=== PATIENT | male | born 1970 | race Caucasian/White ===

== ENCOUNTER → 2018-06-05 | Outpatient (CLI) | payer OTHER ==
[~2018-06-05] MED LIST: ACET-1256 PO; INSDGI SC; NVLGI/PEN SC; RANI150T85 PO
[2018-06-05 11:34] LABS: BASO % 0.3 %; BASO ABS # 0.02 K/uL (0-0.2); EOS % 2.9 %; EOS ABS # 0.22 K/uL (0-0.5); HEMATOCRIT 48.3 % (42-52); HEMOGLOBIN 17.1 g/dL (14.0-18.0); IG# 0.02 K/uL (0.00-0.02); LYMPH % 45.1 %; LYMPH ABS # 3.37 K/uL (1.2-3.4); MEAN CELL VOLUME 91.1 fL (80-100); MEAN CORPUSCULAR HEMOGLOBIN 32.3 pg (25-34); MEAN CORPUSCULAR HGB CONC 35.4 g/dl (32-36); MEAN PLATELET VOLUME 10.6 fL (7.4-10.4); MONO % 9.2 %; MONO ABS # 0.69 K/uL (0.11-0.59); NEUT % 42.2 %; NEUT ABS # 3.16 K/uL (1.4-6.5); PLATELET COUNT 167 K/uL (130-400); RED CELL DISTRIBUTION WIDTH CV 12.4 % (11.5-14.5); RED CELL DISTRIBUTION WIDTH SD 41.3 fL (36.4-46.3); WHITE BLOOD COUNT 7.48 K/uL (4.8-10.8)
--- NOTE | 2018-06-05 11:34 | DIAGNOSTIC IMAGING REPORT ---
CHEST 2 VIEWS ROUTINE CLINICAL HISTORY: Preoperative evaluation. COMPARISON STUDY: No previous studies for comparison. FINDINGS: Lung volumes are normal. No pneumothorax or pleural effusion is noted. There is no evidence for pulmonary edema or pneumonia. Cardiac size is normal. Mediastinal contours are normal. IMPRESSION: No acute cardiopulmonary findings. Electronically signed by: Killian Chase M.D. 06/05/2018 11:33 AM Dictated Date/Time: 06/05/2018 11:32 AM
[2018-06-05 11:51] LABS: ALBUMIN 3.7 gm/dl (3.4-5.0); ALKALINE PHOSPHATASE 76 U/L (45-117); ALT/SGPT 25 U/L (12-78); AST/SGOT 18 U/L (15-37); BLOOD UREA NITROGEN 17 mg/dl (7-18); CARBON DIOXIDE 28 mmol/L (21-32); CREATININE 0.97 mg/dl (0.60-1.40); GLUCOSE 116 mg/dl (70-99); POTASSIUM 4.1 mmol/L (3.5-5.1); SODIUM 138 mmol/L (136-145); TOTAL PROTEIN 7.4 gm/dl (6.4-8.2)
[2018-06-05 12:24] LABS: HEMOGLOBIN A1C 8.4 % (4.5-5.6)
== END | disposition home or self-care (01) ==
LOC: C.CPL 10:15
PROVIDERS: ATTEND Urology
DX: N28.89 Other specified disorders of kidney and ureter (principal); Z01.812 Encounter for preprocedural laboratory examination; Z01.811 Encounter for preprocedural respiratory examination; Z01.810 Encounter for preprocedural cardiovascular examination

== ENCOUNTER 2018-06-18 06:26 | Inpatient (IN) | payer OTHER ==
[2018-06-02 11:52] VITALS: BMI 29.0
--- NOTE | 2018-06-05 10:55 | PAT Medication Instructions ---
Service Date Jun 05, 2018. Current Home Medication List Acetaminophen (Tylenol), 1,000 MG PO PRN Insulin Aspart (Novolog Flexpen), SC TIDM Insulin Glargine (Lantus), 0 SC AMPM Ranitidine (Zantac), 150 MG PO BID Medication Instructions For Your Scheduled Surgery - Take the following medications the morning of surgery with a sip of water: Acetaminophen (Tylenol), 1,000 MG PO PRN (if needed, may be taken up to four hours before surgery) Ranitidine (Zantac), 150 MG PO BID - Take the following medications as scheduled the night before surgery: Acetaminophen (Tylenol), 1,000 MG PO PRN (if needed) Insulin Aspart (Novolog Flexpen), SC TIDM (if needed) Insulin Glargine (Lantus), 0 SC AMPM Ranitidine (Zantac), 150 MG PO BID - For Insulin Dependent Diabetic patients: Test blood sugar A.M. of surgery. - If BLOOD SUGAR IS GREATER THAN 150, take half of your regular dose of: Insulin Glargine (Lantus) -- TAKE 5 UNITS - If BLOOD SUGAR IS LESS THAN 150, do not take any: Insulin Glargine ( Lantus) If you have any questions please call us at [phone] or [phone] or [phone]
[2018-06-18] VITALS (10 sets, daily range): BP systolic 113–146; BP diastolic 62–85; PULSE 88–110; TEMP 36.8–37.2; O2SAT 86–97; Ht 188 cm; Wt 102.5 kg
[~2018-06-18] VITALS: Ht 188 cm; Wt 102.5 kg
[~2018-06-18 06:26] MED LIST changes: +ACETAMINOPHEN 1000 MG/100 ML IV IV SCH; +CEFAZOLIN 2000MG IV PUSH 15 ML IV SCH; +LACTATED RINGER'S 1000ML 1,000 ML IV SCH
[2018-06-18] MEDS ORDERED: MIDAZOLAM HCL 1 MG/ML 2ML VIAL ONE (07:33)
[2018-06-18] MEDS ORDERED: ONDANSETRON INJ 2 MG/ML 2 ML VIAL ONE (07:33)
[2018-06-18] MEDS ORDERED: LIDOCAINE HCL 2% 2 ML VIAL (20MG/ML) ONE (07:33)
[2018-06-18] MEDS ORDERED: PROPOFOL IV EMULSION 10 MG/ML 20 ML VIAL ONE (07:33)
[2018-06-18] MEDS ORDERED: ROCURONIUM BROMIDE 10 MG/ML 5 ML VIAL ONE ×6 (07:33→09:17)
[2018-06-18] MEDS ORDERED: FENTANYL CITRATE INJ 50 MCG/1 ML 2 ML VIAL ONE (07:33)
[2018-06-18] MEDS ORDERED: BUPIVACAINE 0.5 % 5 MG/1 ML PF 10ML VIAL ONE (07:50)
--- NOTE | 2018-06-18 08:10 | History & Physical Bridge Note ---
H&P Re-Evaluation Bridge Note: I have examined the patient, reviewed the History & Physical and in the interval since the performance of the History & Physical I have noted the following changes of clinical significance: No changes noted
[2018-06-18] MEDS ORDERED: EpHEDrine SULFATE INJ 50 MG/ML AMP IV PRN (08:45)
[2018-06-18] MEDS ORDERED: ONDANSETRON INJ 2 MG/ML 2 ML VIAL IV PRN ×2 (08:45→10:45)
[2018-06-18] MEDS ORDERED: PHENYLEPHRINE 100MCG/ML 5ML SYR IV PRN (08:45)
[2018-06-18] MEDS ORDERED: ATROPINE SULFATE 0.1 MG/ML 5ML SYR IV PRN (08:45)
[2018-06-18] MEDS ORDERED: ACETAMINOPHEN 1000 MG/100 ML IV IV ONE (08:56)
[2018-06-18] MEDS ORDERED: EpHEDrine SULFATE 50MG/5ML SYR ONE (09:31)
[2018-06-18] MEDS ORDERED: GLYCOPYRROLATE INJ 0.2 MG/ML VIAL ONE (09:42)
[2018-06-18] MEDS ORDERED: NEOSTIGMINE METHYLSULFATE 5 MG/5 ML SYR ONE (09:42)
[2018-06-18] MEDS ORDERED: ESMOLOL HCL 10 MG/ML 10 ML VIAL ONE (10:15)
[2018-06-18] MEDS ORDERED: TISSEEL FIBRIN SEALANT 10ML TOP ONE (10:19)
--- NOTE | 2018-06-18 10:43 | [facility] Post Operative Brief Note ---
Immediate Operative Summary Operative Date Jun 18, 2018. Pre-Operative Diagnosis Right renal mass Post-Operative Diagnosis Right renal mass Procedure(s) Performed Laparoscopic Right Hand Assisted Nephrectomy Surgeon Dr. Alexandro Peng MD Winter Sports Manager Surgeon(s) Lorna Siddiqui RN, FRAMING MILL OPERATOR HELPER Estimated Blood Loss 50ml Findings Consistent with Post-Op Diagnosis Specimens A. Right kidney Drains Gonzalez to gravity Anesthesia Type General Complication(s) none Disposition Accompanied Pt To Recover: no Disposition: Recovery Room / PACU
[2018-06-18] MEDS ORDERED: GLUCAGON FOR INJ 1 MG VIAL SQ PRN (10:45)
[2018-06-18] MEDS ORDERED: OXYBUTYNIN CHLORIDE 5 MG TAB PO PRN (10:45)
[2018-06-18] MEDS ORDERED: HYDROmorphone INJ 1 MG/ML SYR IV PRN (10:45)
[2018-06-18] MEDS ORDERED: GLUCOSE 40% GEL 15 GM TUBE PO PRN (10:45)
[2018-06-18] MEDS ORDERED: DEXTROSE 50% 50 ML SYR IV PRN (10:45)
[2018-06-18] MEDS ORDERED: GLUCOSE 10 TABS/TUBE PO PRN (10:45)
[2018-06-18] MEDS ORDERED: ACETAMINOPHEN IV 100 ML IV PRN (10:45)
[2018-06-18] MEDS ORDERED: CARBOHYDRATES FOR HYPOGLYCEMIA PO PRN (10:45)
[2018-06-18] MEDS: HYDROmorphone INJ 2 MG/ML SYR/VIAL IV PRN ×6 (10:55→11:20)
[2018-06-18] MEDS ORDERED: PHARMACY GLYCEMIC MGMT CONSULT PRN (11:00)
[2018-06-18 11:10] LABS: HEMATOCRIT 48.7 % (42-52); HEMOGLOBIN 16.8 g/dL (14.0-18.0); MEAN CELL VOLUME 94.4 fL (80-100); MEAN CORPUSCULAR HEMOGLOBIN 32.6 pg (25-34); MEAN PLATELET VOLUME 9.8 fL (7.4-10.4); PLATELET COUNT 212 K/uL (130-400); RED CELL DISTRIBUTION WIDTH CV 13.3 % (11.5-14.5); RED CELL DISTRIBUTION WIDTH SD 45.5 fL (36.4-46.3); WHITE BLOOD COUNT 19.04 K/uL (4.8-10.8)
[2018-06-18] MEDS ORDERED: HYDROmorphone INJ 1 MG/ML SYR ONE (11:12)
--- NOTE | 2018-06-18 11:15 | [facility] Operative Report ---
Operative Report Operative Date Jun 18, 2018. Pre-Operative Diagnosis Right renal mass Post-Operative Diagnosis Right renal mass Procedure(s) Performed Laparoscopic Right Hand Assisted Radical Nephrectomy Surgeon Dr. Alexandro Peng MD Business Instructor Surgeon(s) Lorna Siddiqui RN, COOK CANDY Estimated Blood Loss 50ml Findings Normal anatomy, right kidney removed intact. Fluids 1400 cc of crystalloid Specimens A. Right kidney Drains Gonzalez to gravity Anesthesia Type General Complication(s) none Disposition no Recovery Room / PACU Indications 47-year-old male found to have a right central renal mass, approximately 4 cm in size suspicious for renal cell carcinoma over the course of previous hospital admission. Please see H&P and prior notes for further details. Seen the size and location of his tumor and partial nephrectomy is not a satisfactory option. He is here today for radical extirpation of his right kidney and a hand-assisted laparoscopic fashion. Intravenous cephalosporins provided for antibody coverage and SCDs used for DVT prophylaxis. Preoperative intravenous Tylenol provided for pain control. Description of Procedure Patient was properly identified and brought into the operative suite after identification of proper consent of the chart. General anesthesia with endotracheal intubation was initiated and patient was prepped and draped in the standard fashion for this procedure. Full timeout procedure was followed. All port sites were anesthetized with local prior to incision. Patient was placed in a gentle right flank up flexed position and a Wasserman incision was made in the right lower quadrant and brought down through the subcutaneous fat to the level of the fascia of the external oblique. This was divided using a Bovie cautery and abdominal cavity was entered using cold Metzenbaum scissors. Incision was enlarged over the surgeon's finger. GelPort was placed and abdomen was insufflated to 15 mmHg. Normal intra-abdominal anatomy was appreciated and two 12 mm ports were placed in the midclavicular line onto the surgeon's hand. Colon was mobilized laterally along the white line of Toldt using Harmonic scalpel. Excellent intra-abdominal anatomy with a paucity of intra-abdominal fat was appreciated. Duodenum was kocherized and IVC was identified. The gonadal vein running through the surgical field was triple clipped and divided. Ureter was identified and used for lateral traction on the kidney. Dissection was carried in a cephalad direction to the renal hilum was identified. Care was taken to keep the perihilar fat and hopefully vivi tissue with the specimen. A single renal artery and vein were circumscribed and taken using separate vascular staple loads. Excellent control of vessels was noted. Lateral and cephalad aspect of the kidney were dissected free using blunt dissection and harmonic scalpel as necessary. Vascular staple loads were used to divide the adrenal gland leaving the majority of it intact within the patient. Clips were used on the ureter and periureteral tissue which was then divided. Kidney was free within the abdomen and able to be easily removed through the hand-assisted port. Attention was turned to the surgical bed were excellent hemostasis was appreciated without residual abnormal tissue. Tisseel tissue sealant was placed over the surgical bed and the vascular stumps for additional hemostasis. Ports were removed and excess carbon dioxide was removed from the abdomen. Flexion was removed from the table. Hand incision was closed in 2 layers using 0 Vicryl suture on the deep musculature of the abdomen and a #1 Vicryl suture on the fascia of the external oblique. 3-0 Vicryl suture was used on the subcutaneous fat followed by 4-0 Monocryl and Dermabond on all skin incisions. Anesthesia was reversed the patient was transferred to the recovery room in stable condition. Business Instructor was present throughout the case to aid in running the camera, passage of instruments, retraction of tissues and general patient safety. Follow-up CARE: Patient will be admitted to the floor for standard postoperative management. I attest to the content of the Intraoperative Record and any orders documented therein. Any exceptions are noted below.
[2018-06-18 11:18] LABS: MEAN CORPUSCULAR HGB CONC 34.5 g/dl (32-36)
[2018-06-18 11:28] LABS: CALCIUM 8.4 mg/dl (8.5-10.1); CREATININE 1.33 mg/dl (0.60-1.40); POTASSIUM 4.1 mmol/L (3.5-5.1)
--- NOTE | 2018-06-18 13:02 | Anesthesiology Progress Note ---
Anesthesia Post Op Note Date & Time Jun 18, 2018 at 13:02 Vital Signs Pain Intensity: 0.0 Vital Signs Past 12 Hours Date Time Temp Pulse Resp B/P (MAP) Pulse Ox O2 Delivery O2 Flow Rate FiO2 06/18/18 12:32 106 18 141/78 (99) 96 Nasal Cannula 2.0 06/18/18 12:05 103 18 136/79 (98) 97 Nasal Cannula 2.0 06/18/18 11:50 37.0 99 20 134/77 (96) 96 Nasal Cannula 2.0 06/18/18 11:50 96 Nasal Cannula 2.0 06/18/18 11:50 Nasal Cannula 2.0 06/18/18 11:40 38.0 100 16 145/80 97 Oxymask 3 06/18/18 11:30 99 16 141/82 98 Oxymask 3 06/18/18 11:20 99 16 151/86 97 Room Air 06/18/18 11:10 99 16 165/92 100 Oxymask 3 06/18/18 11:00 102 16 169/99 100 Oxymask 5 06/18/18 10:50 36.2 102 16 171/97 100 Oxymask 5 06/18/18 07:06 36.8 88 20 113/85 96 Room Air Notes Mental Status: alert / awake / arousable, participated in evaluation Pt Amnestic to Procedure: Yes Nausea / Vomiting: adequately controlled Pain: adequately controlled Airway Patency, RR, SpO2: stable & adequate BP & HR: stable & adequate Hydration State: stable & adequate Anesthetic Complications: no major complications apparent
[2018-06-18] MEDS ORDERED: INSULIN ASPART 100 UNITS/ML 3 ML PEN SC STA (13:09)
[2018-06-18] MEDS ORDERED: INSULIN GLARGINE SOLOSTAR 100 UNITS/ML 3 ML PEN SC ONE ×2 (13:15→21:00)
[2018-06-18] MEDS: LACTATED RINGER'S 1000ML 1,000 ML IV SCH ×2 (13:29→19:44)
--- NOTE | 2018-06-18 15:32 | Pharmacy Progress Note ---
Glycemic Control Intl Consult Date of Service Jun 18, 2018. Scope Glycemic Pharmacist consulted by Dr Siddiqui on 06/18/18 for glycemic control and to write orders per [facility] inpatient glycemic control protocol Objective Weight (Kilograms): 102.500 Accuchecks BSG (last 24hrs): Test 06/18/18 07:03 06/18/18 10:58 06/18/18 11:15 06/18/18 12:05 Bedside Glucose 92 mg/dl (70-99) 171 mg/dl (70-99) 177 mg/dl (70-99) Random Glucose 171 mg/dl (70-99) Laboratory Data (last 24hrs) Test 06/18/18 10:58 Anion Gap 9.0 mmol/L BUN/Creatinine Ratio 10.1 Blood Urea Nitrogen 13 mg/dl Creatinine 1.33 mg/dl Potassium Level 4.1 mmol/L Sodium Level 137 mmol/L White Blood Count 19.04 K/uL Recent Pertinent Medications Outpatient Anti-diabetic Regimen: * Lantus 0-12 units SC BID (based on BSG) * Novolog 0-8 units SC TIDM (based on BSG) * A1c = 8.4% 06/05/18 * Of note, diabetes is a new diagnosis as of May 2018 and thus this A1c is not reflective of adequacy of above listed outpatient regimen Risk Factors for Insulin Resistance: * Recent Surgery: POD 0 s/p nephrectomy * Diet: clear liquid Assessment & Plan ASSESSMENT: * 47 yo M admitted for nephrectomy. * Recent diagnosis of diabetes as of May 2018. Basal and bolus insulin started as outpatient already. * No basal insulin administered since 8/1 AM per med rec * Will initiate Lantus - 1st dose STAT at 1/2 daily weight-based moderate stress estimate. Additional Lantus tonight for any BSG > 160 mg/dL * Will initiate weight-based moderate stress estimate Novolog * Will add one overnight check as adequate BSG control is especially important post-op PLAN FOR INPATIENT GLYCEMIC CONTROL: * Basal insulin with LANTUS 17 units SQ x1 (already administered). Additional 10 units @ 2100 if BSG > 160 mg/dL * Correctional Insulin with NOVOLOG per scale ACHS or Q6hrs while NPO * Goal Range: Low 120 mg/dL - High 150 mg/dL * Correction Factor: 25 mg/dL/unit * Nutritional / Prandial insulin per carb ratio of 1 unit per 8 grams CHO consumed * Please note that the plan above was derived based on current level of insulin resistance and hospital stress. These recommendations are appropriate for inpatient admission only. Plan of care upon discharge will need to be reassessed to avoid potential outpatient hypo/hyperglycemia. Thank you.
[2018-06-18] MEDS: CEFAZOLIN IV 2,000 MG in SYRINGE 0 ML IV SCH ×2 (15:37→23:24)
[2018-06-18] MEDS: OXYCODONE/ACETAMINOPHEN 7.5-325 TAB PO PRN ×2 (15:37→19:45)
--- NOTE | 2018-06-18 15:45 | Progress Note ---
Progress Note Date of Service Jun 18, 2018. Progress Note PM rounds 47 yo male POD# 0 s/p R HALN. in room. Patient groggy but conversant, notes R flank and incisional pain with movement, expected. Postop labs reviewed , noted below, appropriate. NAD S1 S2 Good respiratory excursion Soft, appropriate incisional tenderness, c/d/i with dermabond, ND A/P 47 yo male s/p R HALN. OOBTC encouraged today. TOV tomorrow, advance diet and activity. Expect 1-2 day hospital stay. Last 24 Hours Test 06/18/18 07:03 06/18/18 10:58 06/18/18 11:15 06/18/18 12:05 Bedside Glucose 92 mg/dl 171 mg/dl 177 mg/dl White Blood Count 19.04 K/uL Red Blood Count 5.16 M/uL Hemoglobin 16.8 g/dL Hematocrit 48.7 % Mean Corpuscular Volume 94.4 fL Mean Corpuscular Hemoglobin 32.6 pg Mean Corpuscular Hemoglobin Concent 34.5 g/dl RDW Standard Deviation 45.5 fL RDW Coefficient of Variation 13.3 % Platelet Count 212 K/uL Mean Platelet Volume 9.8 fL Sodium Level 137 mmol/L Potassium Level 4.1 mmol/L Chloride Level 102 mmol/L Carbon Dioxide Level 26 mmol/L Anion Gap 9.0 mmol/L Blood Urea Nitrogen 13 mg/dl Creatinine 1.33 mg/dl Est Creatinine Clear Calc Drug Dose 87.7 ml/min Estimated GFR () 73.3 Estimated GFR (Non- 63.2 BUN/Creatinine Ratio 10.1 Random Glucose 171 mg/dl Calcium Level 8.4 mg/dl
[2018-06-18] MEDS ORDERED: INSULIN ASPART 100 UNITS/ML 3 ML PEN SC SCH (17:15)
[2018-06-18] MEDS: INSULIN ASPART 100 UNITS/ML 3 ML PEN SC SCH ×2 (18:13→20:50)
[2018-06-18] MEDS: RANITIDINE HCL 150 MG TAB PO SCH (20:51)
[2018-06-18] MEDS: DOCUSATE SODIUM 100 MG CAP PO SCH (20:51)
[2018-06-19] MEDS ORDERED: INSULIN ASPART 100 UNITS/ML 3 ML PEN SC ONE (02:00)
[2018-06-19 03:15] VITALS: BP 150/76; PULSE 99; TEMP 37.4; O2SAT 97
[2018-06-19] MEDS: LACTATED RINGER'S 1000ML 1,000 ML IV SCH ×2 (04:01→12:03)
[2018-06-19 06:56] VITALS: BP 137/76; PULSE 99; TEMP 37.3; O2SAT 91
[2018-06-19 06:57] LABS: BASO % 0.1 %; BASO ABS # 0.01 K/uL (0-0.2); EOS % 0.1 %; EOS ABS # 0.01 K/uL (0-0.5); HEMATOCRIT 45.3 % (42-52); HEMOGLOBIN 15.8 g/dL (14.0-18.0); IG# 0.03 K/uL (0.00-0.02); LYMPH % 16.3 %; LYMPH ABS # 1.62 K/uL (1.2-3.4); MEAN CORPUSCULAR HEMOGLOBIN 32.4 pg (25-34); MEAN CORPUSCULAR HGB CONC 34.9 g/dl (32-36); MEAN PLATELET VOLUME 9.9 fL (7.4-10.4); MONO % 8.9 %; MONO ABS # 0.89 K/uL (0.11-0.59); NEUT % 74.3 %; NEUT ABS # 7.39 K/uL (1.4-6.5); PLATELET COUNT 169 K/uL (130-400); RED CELL DISTRIBUTION WIDTH CV 13.1 % (11.5-14.5); RED CELL DISTRIBUTION WIDTH SD 44.6 fL (36.4-46.3); WHITE BLOOD COUNT 9.95 K/uL (4.8-10.8)
[2018-06-19 07:28] LABS: CALCIUM 8.1 mg/dl (8.5-10.1); CREATININE 1.46 mg/dl (0.60-1.40)
--- NOTE | 2018-06-19 08:24 | Urology Progress Note ---
Progress Note Date of Service Jun 19, 2018. Subjective Pt evaluation today including: conversation w/ patient, chart review, lab review Pain: incisional pain Voiding: rivera catheter in place (patent, draining clear, yellow urine ) 47 yo male s/p right HALN. Pt c/o incisional pain this morning. Denies n/v, but states he has not appetite. Tolerating clears. Denies flatus or BM. He has been OOB to chair, but has not gotten up to walk around because of rivera per pt. Constitutional: No fever, No chills Respiratory: No shortness of breath Cardiovascular: No chest pain Abdomen: + pain (incisional ), No nausea, No vomiting Male : No hematuria Heme: No abnormal bleeding/bruising Objective Vital Signs Date Time Temp Pulse Resp B/P (MAP) Pulse Ox O2 Delivery O2 Flow Rate FiO2 06/19/18 06:56 37.3 99 16 137/76 (96) 91 Room Air 06/19/18 03:15 37.4 99 18 150/76 (100) 97 Room Air 06/18/18 23:25 Room Air 06/18/18 23:12 36.8 92 18 134/71 (92) 93 Room Air 06/18/18 19:20 36.9 99 18 146/85 (105) 97 Nasal Cannula 3.0 06/18/18 15:30 Nasal Cannula 2.0 06/18/18 15:23 37.2 106 16 145/62 (89) 96 Nasal Cannula 2.0 06/18/18 14:07 97 95 Nasal Cannula 2.0 06/18/18 14:05 110 16 119/68 (85) 86 Room Air 06/18/18 13:07 108 18 127/77 (94) 91 Room Air 06/18/18 12:32 106 18 141/78 (99) 96 Nasal Cannula 2.0 06/18/18 12:05 103 18 136/79 (98) 97 Nasal Cannula 2.0 06/18/18 11:50 37.0 99 20 134/77 (96) 96 Nasal Cannula 2.0 06/18/18 11:50 96 Nasal Cannula 2.0 06/18/18 11:50 Nasal Cannula 2.0 06/18/18 11:40 38.0 100 16 145/80 97 Oxymask 3 06/18/18 11:30 99 16 141/82 98 Oxymask 3 06/18/18 11:20 99 16 151/86 97 Room Air 06/18/18 11:10 99 16 165/92 100 Oxymask 3 06/18/18 11:00 102 16 169/99 100 Oxymask 5 06/18/18 10:50 36.2 102 16 171/97 100 Oxymask 5 Physical Exam General Appearance: no apparent distress Eyes: normal inspection ENT: hearing grossly normal Neck: no JVD Respiratory/Chest: no respiratory distress, no accessory muscle use Cardiovascular: no JVD Abdomen: soft, + tenderness (diffuse ), + pertinent finding (abdominal incisions c/d/i) Extremities: normal inspection Neurologic/Psychiatric: alert, normal mood/affect, oriented x 3 Skin: normal color Laboratory Results Last 24 Hours Test 06/18/18 10:58 06/18/18 11:15 06/18/18 12:05 06/18/18 17:27 White Blood Count 19.04 K/uL Red Blood Count 5.16 M/uL Hemoglobin 16.8 g/dL Hematocrit 48.7 % Mean Corpuscular Volume 94.4 fL Mean Corpuscular Hemoglobin 32.6 pg Mean Corpuscular Hemoglobin Concent 34.5 g/dl RDW Standard Deviation 45.5 fL RDW Coefficient of Variation 13.3 % Platelet Count 212 K/uL Mean Platelet Volume 9.8 fL Sodium Level 137 mmol/L Potassium Level 4.1 mmol/L Chloride Level 102 mmol/L Carbon Dioxide Level 26 mmol/L Anion Gap 9.0 mmol/L Blood Urea Nitrogen 13 mg/dl Creatinine 1.33 mg/dl Est Creatinine Clear Calc Drug Dose 87.7 ml/min Estimated GFR () 73.3 Estimated GFR (Non- 63.2 BUN/Creatinine Ratio 10.1 Random Glucose 171 mg/dl Calcium Level 8.4 mg/dl Bedside Glucose 171 mg/dl 177 mg/dl 171 mg/dl Test 06/18/18 20:38 06/19/18 01:56 06/19/18 06:36 Bedside Glucose 148 mg/dl 116 mg/dl White Blood Count 9.95 K/uL Red Blood Count 4.87 M/uL Hemoglobin 15.8 g/dL Hematocrit 45.3 % Mean Corpuscular Volume 93.0 fL Mean Corpuscular Hemoglobin 32.4 pg Mean Corpuscular Hemoglobin Concent 34.9 g/dl Platelet Count 169 K/uL Mean Platelet Volume 9.9 fL Neutrophils (%) (Auto) 74.3 % Lymphocytes (%) (Auto) 16.3 % Monocytes (%) (Auto) 8.9 % Eosinophils (%) (Auto) 0.1 % Basophils (%) (Auto) 0.1 % Neutrophils # (Auto) 7.39 K/uL Lymphocytes # (Auto) 1.62 K/uL Monocytes # (Auto) 0.89 K/uL Eosinophils # (Auto) 0.01 K/uL Basophils # (Auto) 0.01 K/uL RDW Standard Deviation 44.6 fL RDW Coefficient of Variation 13.1 % Immature Granulocyte % (Auto) 0.3 % Immature Granulocyte # (Auto) 0.03 K/uL Sodium Level 134 mmol/L Potassium Level 4.0 mmol/L Chloride Level 102 mmol/L Carbon Dioxide Level 27 mmol/L Anion Gap 5.0 mmol/L Blood Urea Nitrogen 11 mg/dl Creatinine 1.46 mg/dl Est Creatinine Clear Calc Drug Dose 79.9 ml/min Estimated GFR () 65.4 Estimated GFR (Non- 56.5 BUN/Creatinine Ratio 7.7 Random Glucose 107 mg/dl Calcium Level 8.1 mg/dl Assessment and Plan POD #1 s/p right HALN Pt clinically stable. Labs stable. I&Os acceptable. Will advance to mechanical soft diet as tolerated. Encourage use of IS. Encourage ambulation to hallway. D/c rivera catheter. Trial of void this morning. Hep lock IVF after lunch if tolerating PO. Likely d/c home tomorrow. Discharge planning: home
[2018-06-19] MEDS ORDERED: CLC100 PO (08:28)
[2018-06-19] MEDS ORDERED: OXYC7.5T62 PO (08:28)
[2018-06-19] MEDS: CEFAZOLIN IV 2,000 MG in SYRINGE 0 ML IV SCH (08:30)
--- NOTE | 2018-06-19 08:34 | Discharge Instructions ---
Discharge Instructions Date of Service Jun 19, 2018. Admission Reason for Admission: Right Renal Mass Discharge Discharge Diagnosis / Problem: Right renal mass Discharge Goals Goal(s): Decrease discomfort, Improve function, Increase independence, Improve disease control, Improve nutritional status, Therapeutic intervention Activity Recommendations Activity Limitations: as noted below Shower/Bathe: tomorrow 1. Do not lift >15lbs x 6 weeks. 2. No heavy exercise x 6 weeks. You may engage in light activity such as walking and stairs as tolerated. 3. Do not drive x [address] while taking narcotics. 4. Follow-up as scheduled. Please call our office at [phone] if you need to reschedule for any reason. . . Current Hospital Diet Patient's current hospital diet: Diabetes Type 2 Diet Discharge Diet Recommended Diet: Diabetes Type 2 Diet Procedures Procedures Performed: Laparoscopic Right Hand Assisted Radical Nephrectomy Pending Studies Studies pending at discharge: yes List of pending studies: right kidney Laboratory Results Hemoglobin A1c Test 06/05/18 11:08 Range/Units Estimated Average Glucose 194 mg/dl Hemoglobin A1c 8.4 H 4.5-5.6 % Medical Emergencies . Who to Call and When: Medical Emergencies: If at any time you feel your situation is an emergency, please call 911 immediately. . Non-Emergent Contact Non-Emergency issues call your: Urologist Call Non-Emergent contact if: temperature is above 101.5, your pain is not controlled, your pain is worsening, your pain is unusual for you, your pain is concerning you, wound has increased drainage, wound has increased redness, wound has increased pain, you have any medication questions . . "Provider Documentation" section prepared by Lorna Siddiqui. . [place] Drug Monitoring Program Search Results: patient reviewed within database, no issues identified
[2018-06-19] MEDS: OXYCODONE/ACETAMINOPHEN 7.5-325 TAB PO PRN ×4 (08:43→23:46)
[2018-06-19] MEDS: RANITIDINE HCL 150 MG TAB PO SCH ×2 (08:45→21:12)
[2018-06-19] MEDS: DOCUSATE SODIUM 100 MG CAP PO SCH ×2 (08:45→21:12)
[2018-06-19] MEDS: INSULIN ASPART 100 UNITS/ML 3 ML PEN SC SCH ×4 (09:00→21:00)
[2018-06-19] MEDS: INSULIN GLARGINE SOLOSTAR 100 UNITS/ML 3 ML PEN SC SCH ×2 (09:02→21:16)
[2018-06-19] MEDS: HEPARIN SOD 5000 UNIT/0.5 ML CARP SQ SCH ×2 (11:29→21:15)
--- NOTE | 2018-06-19 11:55 | Pharmacy Progress Note ---
Glycemic Control Progress Note Date of Service Jun 19, 2018. Scope Glycemic Pharmacist consulted for glycemic control to write orders per [facility] inpatient glycemic control protocol. Objective Accuchecks BSG (last 24hrs): Test 06/18/18 12:05 06/18/18 17:27 06/18/18 20:38 06/19/18 01:56 Bedside Glucose 177 mg/dl (70-99) 171 mg/dl (70-99) 148 mg/dl (70-99) 116 mg/dl (70-99) Test 06/19/18 06:36 06/19/18 08:08 06/19/18 11:32 Random Glucose 107 mg/dl (70-99) Bedside Glucose 103 mg/dl (70-99) 102 mg/dl (70-99) Recent Pertinent Medications Outpatient Anti-diabetic Regimen: * Lantus 0-12 units SC BID (based on BSG) * Novolog 0-8 units SC TIDM (based on BSG) * A1c = 8.4% 06/05/18 * Of note, diabetes is a new diagnosis as of May 2018 and thus this A1c is not reflective of adequacy of above listed outpatient regimen The patient is currently receiving: * Basal insulin with LANTUS 17 units SQ x1 06/18 afternoon * Correctional Insulin with NOVOLOG per scale ACHS or Q6hrs while NPO * Goal Range: Low 120 mg/dL - High 150 mg/dL * Correction Factor: 25 mg/dL/unit * Nutritional / Prandial insulin per carb ratio of 1 unit per 8 grams CHO consumed Risk Factors for Insulin Resistance: * Recent Surgery: POD 1 s/p nephrectomy * Diet: T2DM, mechanical soft Assessment & Plan ASSESSMENT: 06/17/18 * 47 yo M admitted for nephrectomy. * Recent diagnosis of diabetes as of May 2018. Basal and bolus insulin started as outpatient already. * No basal insulin administered since 8/ AM per med rec * Will initiate Lantus - 1st dose STAT at 1/2 daily weight-based moderate stress estimate. Additional Lantus tonight for any BSG > 160 mg/dL * Will initiate weight-based moderate stress estimate Novolog * Will add one overnight check as adequate BSG control is especially important post-op 06/18/18 * BSG's ranging 102-177 over the last 24 hours, and all BSG's today 102-116 mg/ dL * Patient denied nausea, but also notes poor appetite (per provider progress note) * Will resume Lantus (similar to home dose) * OK to decrease Novolog goal range * No ongoing overnight checks required * Anticipate likely discharge tomorrow PLAN FOR INPATIENT GLYCEMIC CONTROL: * Basal insulin with LANTUS BID based on BSG * Hold for BSG less than 100 mg/dL * 6 units for BSG 100-150 mg/dL * 10 units for BSG 151-200 mg/dL * 12 units for BSG greater than 200 mg/dL * Correctional Insulin with NOVOLOG per scale ACHS or Q6hrs while NPO * Goal Range: Low 110 mg/dL - High 140 mg/dL * Correction Factor: 25 mg/dL/unit * Nutritional / Prandial insulin per carb ratio of 1 unit per 8 grams CHO consumed * Please note that the plan above was derived based on current level of insulin resistance and hospital stress. These recommendations are appropriate for inpatient admission only. Plan of care upon discharge will need to be reassessed to avoid potential outpatient hypo/hyperglycemia. Thank you.
--- NOTE | 2018-06-19 13:24 | Anesthesiology Progress Note ---
Anesthesia Post Op Note Date & Time Jun 19, 2018 at 13:24 Vital Signs Pain Intensity: 7.0 Vital Signs Past 12 Hours Date Time Temp Pulse Resp B/P (MAP) Pulse Ox O2 Delivery O2 Flow Rate FiO2 06/19/18 10:43 Room Air 06/19/18 06:56 37.3 99 16 137/76 (96) 91 Room Air 06/19/18 03:15 37.4 99 18 150/76 (100) 97 Room Air Notes Mental Status: alert / awake / arousable, participated in evaluation Pt Amnestic to Procedure: Yes Nausea / Vomiting: adequately controlled Pain: adequately controlled Airway Patency, RR, SpO2: stable & adequate BP & HR: stable & adequate Hydration State: stable & adequate Anesthetic Complications: no major complications apparent
[2018-06-19 15:15] VITALS: BP 136/81; PULSE 91; TEMP 37.3; O2SAT 93
[2018-06-19 19:30] VITALS: O2SAT 93
[2018-06-19] MEDS ORDERED: NURSING VERBAL MED ORDER ONE (20:00)
[2018-06-19 23:28] VITALS: BP 148/86; PULSE 95; TEMP 37.2; O2SAT 95
[2018-06-20 06:49] LABS: BASO % 0.1 %; BASO ABS # 0.01 K/uL (0-0.2); EOS % 1.3 %; EOS ABS # 0.12 K/uL (0-0.5); HEMATOCRIT 45.5 % (42-52); HEMOGLOBIN 15.8 g/dL (14.0-18.0); IG# 0.02 K/uL (0.00-0.02); LYMPH % 17.4 %; LYMPH ABS # 1.65 K/uL (1.2-3.4); MEAN CELL VOLUME 93.6 fL (80-100); MEAN CORPUSCULAR HEMOGLOBIN 32.5 pg (25-34); MEAN CORPUSCULAR HGB CONC 34.7 g/dl (32-36); MEAN PLATELET VOLUME 10.1 fL (7.4-10.4); MONO % 8.8 %; MONO ABS # 0.83 K/uL (0.11-0.59); NEUT % 72.2 %; NEUT ABS # 6.83 K/uL (1.4-6.5); PLATELET COUNT 177 K/uL (130-400); RED CELL DISTRIBUTION WIDTH CV 12.9 % (11.5-14.5); RED CELL DISTRIBUTION WIDTH SD 44.5 fL (36.4-46.3); WHITE BLOOD COUNT 9.46 K/uL (4.8-10.8)
[2018-06-20 07:18] VITALS: BP 142/85; PULSE 105; TEMP 37.1; O2SAT 93
[2018-06-20 07:18] LABS: CALCIUM 9.1 mg/dl (8.5-10.1); CREATININE 1.48 mg/dl (0.60-1.40); POTASSIUM 3.9 mmol/L (3.5-5.1)
[2018-06-20] MEDS: OXYCODONE/ACETAMINOPHEN 7.5-325 TAB PO PRN (07:45)
[2018-06-20] MEDS: INSULIN ASPART 100 UNITS/ML 3 ML PEN SC SCH (08:00)
[2018-06-20] MEDS: DOCUSATE SODIUM 100 MG CAP PO SCH (09:11)
[2018-06-20] MEDS: RANITIDINE HCL 150 MG TAB PO SCH (09:11)
[2018-06-20] MEDS: INSULIN GLARGINE SOLOSTAR 100 UNITS/ML 3 ML PEN SC SCH (09:17)
[2018-06-20] MEDS: HEPARIN SOD 5000 UNIT/0.5 ML CARP SQ SCH (10:57)
--- NOTE | 2018-06-20 11:43 | Urology Progress Note ---
Progress Note Date of Service Jun 20, 2018. Subjective Pt evaluation today including: conversation w/ patient, physical exam, chart review, review of studies Pain: better PO Intake: pt passing flatus Voiding: no voiding problems Objective Vital Signs Date Time Temp Pulse Resp B/P (MAP) Pulse Ox O2 Delivery O2 Flow Rate FiO2 06/20/18 07:51 Room Air 06/20/18 07:18 37.1 105 16 142/85 (104) 93 Room Air 06/19/18 23:28 37.2 95 16 148/86 (106) 95 Room Air 06/19/18 23:15 Room Air 06/19/18 19:30 93 Room Air 06/19/18 15:30 Room Air 06/19/18 15:15 37.3 91 18 136/81 (99) 93 Physical Exam Abdomen: soft Extremities: no calf tenderness Notes: minimal erythema lower incision marked Laboratory Results Last 24 Hours Test 06/19/18 16:58 06/19/18 20:41 06/20/18 06:31 06/20/18 07:57 Bedside Glucose 95 mg/dl 111 mg/dl 103 mg/dl White Blood Count 9.46 K/uL Red Blood Count 4.86 M/uL Hemoglobin 15.8 g/dL Hematocrit 45.5 % Mean Corpuscular Volume 93.6 fL Mean Corpuscular Hemoglobin 32.5 pg Mean Corpuscular Hemoglobin Concent 34.7 g/dl Platelet Count 177 K/uL Mean Platelet Volume 10.1 fL Neutrophils (%) (Auto) 72.2 % Lymphocytes (%) (Auto) 17.4 % Monocytes (%) (Auto) 8.8 % Eosinophils (%) (Auto) 1.3 % Basophils (%) (Auto) 0.1 % Neutrophils # (Auto) 6.83 K/uL Lymphocytes # (Auto) 1.65 K/uL Monocytes # (Auto) 0.83 K/uL Eosinophils # (Auto) 0.12 K/uL Basophils # (Auto) 0.01 K/uL RDW Standard Deviation 44.5 fL RDW Coefficient of Variation 12.9 % Immature Granulocyte % (Auto) 0.2 % Immature Granulocyte # (Auto) 0.02 K/uL Sodium Level 134 mmol/L Potassium Level 3.9 mmol/L Chloride Level 99 mmol/L Carbon Dioxide Level 27 mmol/L Anion Gap 8.0 mmol/L Blood Urea Nitrogen 12 mg/dl Creatinine 1.48 mg/dl Est Creatinine Clear Calc Drug Dose 78.8 ml/min Estimated GFR () 64.4 Estimated GFR (Non- 55.5 BUN/Creatinine Ratio 8.3 Random Glucose 83 mg/dl Calcium Level 9.1 mg/dl
[2018-06-20 12:17] VITALS: BP 142/85; PULSE 105; TEMP 37.1; O2SAT 93
--- NOTE | 2018-07-01 10:49 | Discharge Summary ---
Discharge Summary Date of Service Jul 01, 2018. Admission Date/Reason Jun 18, 2018 at 10:48 Right Renal Mass. Discharge Date/Disposition Jun 20, 2018 Home Diagnosis Principal Diagnosis: Right renal cell carcinoma Procedure(s) Performed Right radical hand-assisted laparoscopic nephrectomy Medication Reconciliation New Medications: Docusate Sodium (Docusate Sodium) 100 Mg Cap 100 MG PO BID PRN for Constipation, #60 CAP 0 Refills Oxycodone/Acetaminophen 7.5MG/325MG (Endocet 7.5MG/325MG) 1 Tab Tab 1 TAB PO Q6 PRN for severe pain (pain scale 7-10), #30 TAB 0 Refills Continued Medications: Acetaminophen (Tylenol) 500 Mg Tab 1000 MG PO PRN, TAB Insulin Aspart (Novolog Flexpen) 100 Units/Ml Inj SC TIDM SLIDING SCALE Insulin Glargine (Lantus) 100 Unit/Ml Inj 0 SC AMPM, VIAL SLIDING SCALE Ranitidine (Zantac) 150 Mg Tab 150 MG PO BID, TAB Admission Physical Exam As per Admitting History & Physical. Hospital Course Pleasant 47-year-old male found to have a suspicious right renal mass not amenable to partial nephrectomy. He is here today for radical surgical extirpation. Please see H&P for further details. Patient underwent right radical nephrectomy with hand-assisted laparoscopy on 18 June as planned. Please see operative report for further details. Over the following days diet and activity were advanced until by postoperative day #2 patient was considered stable for discharge home on oral pain medication, tolerating a regular diet and ambulatory in the hallways. Please see progress notes for further details. Discharge Instructions Please refer to the electronic Patient Visit Report (Discharge Instructions) for additional information.
== END 2018-06-20 13:40 | disposition home or self-care (01) | DRG 658 ==
LOC: C.ACU 06:26 → C.MSN 10:48 → ENRESERV 11:22
PROVIDERS: ADMIT Urology; ATTEND Urology
PROC: 0TT00ZZ Resection of Right Kidney, Open Approach (ICD-10-PCS; principal; 2018-06-18 08:15)
DX: C64.1 Malignant neoplasm of right kidney, except renal pelvis (principal); E11.9 Type 2 diabetes mellitus without complications; Z87.891 Personal history of nicotine dependence; Z80.3 Family history of malignant neoplasm of breast; Z83.3 Family history of diabetes mellitus; Z79.4 Long term (current) use of insulin

== ENCOUNTER 2020-05-03 09:39 | Observation (INO) ==
--- NOTE | 2020-05-02 18:08 | History and Physical Report ---
DATE OF ADMISSION: 05/03/2020 CHIEF COMPLAINT: Left knee injury. HISTORY OF PRESENT ILLNESS: This is a 49-year-old male patient of Dr. Hunt'violeta complaining of a knee injury from 04/27/2020. The patient apparently fell into a wall at his home. The patient was unable to ambulate. CT scan and x-rays showed a quad tendon rupture. We do have an MRI pending to confirm the diagnosis and to what extent. The patient presented to the office for evaluation. After reviewing these studies, the patient agreed to proceed with a left quad tendon repair. PAST MEDICAL HISTORY: Hypertension, diabetes mellitus with insulin, acid reflux, kidney cancer with a right nephrectomy. SOCIAL HISTORY: The patient was a 26-year pack per day smoker, he quit in 2012. Nondrinker. No illicit drugs. PAST SURGICAL HISTORY: Right nephrectomy and ACL reconstruction. FAMILY HISTORY: Noncontributory. REVIEW OF SYSTEMS: Acute knee injury on 04/27/2020. Otherwise, denies any shortness of breath, chest pain, nausea, vomiting or other joint complaints. MEDICATIONS: Losartan daily, Basaglar KwikPen 100 insulin units 18 units twice a day, Trulicity 0.75/0.5 subQ weekly. ALLERGIES: No known drug allergies. PHYSICAL EXAMINATION: GENERAL: Well-developed, well-nourished 49-year-old male, in no acute distress. He is alert and oriented x3 and pleasant. HEENT: Normocephalic, atraumatic. Extraocular motions are intact. Pupils are equal and reactive to light. HEART: Regular rate and rhythm, no murmurs. LUNGS: Clear. ABDOMEN: Soft, nontender, bowel sounds are present. EXTREMITIES: Left knee has an effusion. He cannot actively extend his knee. Varus and valgus stressing are normal. Active range of motion is limited to 90 degrees of flexion, 30 degrees of extension. Neurologically and neurovascularly he is intact in his left lower extremity. DIAGNOSES: Left quad tendon rupture, hypertension, diabetes mellitus with insulin, acid reflux, history of kidney cancer with a right nephrectomy. PLAN: The patient was advised of his diagnosis. Indications, risks, benefits, postop course have all been reviewed. The patient wished to proceed with a left quad tendon repair. Necessary consent forms, preoperative testing and clearances will be obtained. JOEL
[~2020-05-03 09:39] MED LIST changes: -ACET-1256 PO; -ACETAMINOPHEN 1000 MG/100 ML IV IV SCH; +CEFAZOLIN 2000MG 2,000 MG/15 ML SYR IV SCH; -CEFAZOLIN 2000MG IV PUSH 15 ML IV SCH; -INSDGI SC; -LACTATED RINGER'S 1000ML 1,000 ML IV SCH; -NVLGI/PEN SC; -RANI150T85 PO
[2020-05-03] MEDS ORDERED: CEFAZOLIN 2,000 MG/15 ML IV PUSH IV ONE (10:07)
[2020-05-03 10:41] LABS: Basophils # (auto) 0.02 K/uL (0-0.2); Basophils % (auto) 0.3 %; Eosinophils # (auto) 0.24 K/uL (0-0.5); Eosinophils % (auto) 3.1 %; Hematocrit (blood only) 44.4 % (42-52); Hemoglobin 15.6 g/dL (14.0-18.0); Immature Granulocytes # (auto) 0.02 K/uL (0.00-0.02); Immature Granulocytes % (auto) 0.3 %; Lymphocytes # (auto) 3.54 K/uL (1.2-3.4); Lymphocytes % (auto) 45.4 %; Mean Corpuscular Hemoglobin 33.1 pg (25-34); Mean Corpuscular Volume 94.3 fL (80-100); Mean Platelet Volume 9.5 fL (7.4-10.4); Monocytes % (auto) 7.7 %; Neutrophils # (auto) 3.38 K/uL (1.4-6.5); Neutrophils % (auto) 43.2 %; Platelet Count 254 K/uL (130-400); RDW Coefficient of Variation 13.4 % (11.5-14.5); Red Blood Count 4.71 M/uL (4.7-6.1)
[2020-05-03 10:54] LABS: Estimated Average Glucose 140 mg/dl; Hemoglobin A1C 6.5 % (4.5-5.6)
[2020-05-03 10:56] LABS: BUN Creatinine Ratio 14.8 (10-20); Calcium 8.7 mg/dl (8.5-10.1); Creatinine Clr Calc Pharmacy 95.4 ml/min; Est GFR (Non-African American) 69.9; Potassium 4.1 mmol/L (3.5-5.1)
[2020-05-03 11:30] LABS: Mean Corpuscular Hgb Conc 35.1 g/dL (32-36)
[2020-05-03] MEDS ORDERED: ATROPINE SULFATE 0.1 MG/ML 10ML SYR IV PRN (12:44)
[2020-05-03] MEDS ORDERED: HYDROmorphone INJ 2 MG/ML SYR/VIAL IV PRN (12:44)
[2020-05-03] MEDS ORDERED: fentaNYL citrate 100 MCG/2 ML VIAL IV PRN (12:44)
[2020-05-03] MEDS ORDERED: ONDANSETRON INJ 2 MG/ML 2 ML VIAL IV PRN ×2 (12:44→17:57)
[2020-05-03] MEDS ORDERED: ePHEDrine sulfate 50 MG/ML AMP IV PRN (12:44)
[2020-05-03] MEDS ORDERED: MIDAZOLAM HCL 1 MG/ML 2ML VIAL ONE (12:54)
[2020-05-03] MEDS ORDERED: fentaNYL citrate 100 MCG/2 ML VIAL ONE ×2 (12:55→15:58)
--- NOTE | 2020-05-03 14:12 | History & Physical Bridge Note ---
Date of Service May 03, 2020 History & Physical Bridge Note I have examined the patient, reviewed the History & Physical and in the interval since the performance of the History & Physical I have noted the following changes of clinical significance: no changes noted
[2020-05-03] MEDS ORDERED: BUPIVACAINE 0.5 % 5 MG/1 ML PF 10ML VIAL ONE (14:16)
[2020-05-03] MEDS ORDERED: BACITRACIN INJ 50,000 UNIT VIAL ONE (14:45)
--- NOTE | 2020-05-03 14:51 | Anesthesiology Consultation ---
Date of Service May 03, 2020 Assessment & Plan ASA ASA3 Proposed Anesthesia Anesthesia Type: General Regional Regional Laterality: Left Site: Femoral Risk / Benefits Reviewed With: PT / POA / Parent / Guardian, Accepts Plan and Informed Consent Obtained History Surgery Operation Date: 05/03/20 12:05 Proposed Procedures p Left Quad Tendon Repair - Will Hunt MD Height/Weight Height: 6 ft 2 in Weight: 105.1 kg Allergies Allergy/AdvReac Type Severity Reaction Status Date / Time No Known Allergies Allergy Verified 05/03/20 10:00 Medications Home Medications Medication Instructions Recorded Confirmed Last Taken insulin aspart U-100 [Novolog 0 unit SUBCUT UD 06/26/19 05/03/20 Unknown Flexpen U-100 Insulin] BD Ultra-Fine Mini Pen Needle 31 #200 ea NS 06/30/19 01/07/20 Unknown gauge x 3/16" blood sugar diagnostic #10 ea 07/16/19 01/07/20 Unknown lancets See Rx Instructions .ROUTE .COMPLEX 07/16/19 01/07/20 Unknown losartan 25 mg tablet 25 mg PO DAILY #90 tab 04/04/20 05/03/20 05/02/20 12:00 Trulicity 1.5 mg/0.5 mL 1.5 mg SQ WEEKLY #2 ml NS 04/25/20 05/03/20 04/28/20 18:00 subcutaneous pen injector insulin glargine [Basaglar KwikPen 18 units SUBCUT BID 04/28/20 05/03/20 05/02/20 08:00 U-100 Insulin] acetaminophen [Tylenol Extra 500 mg PO Q6H PRN 05/03/20 05/03/20 05/02/20 12:00 Strength] Active Medications Generic Name Dose Route Start Last Admin Trade Name Freq PRN Reason Stop Dose Admin Cefazolin Sodium 2,000 mg in 15 mls @ 3.75 mls/min 05/03/20 06:00 05/03/20 14:31 Ancef 2000mg IV 05/03/20 18:00 3.75 mls/min PREOP JOO Administration Protocol NPO Date Last Intake of Fluids: 05/02/20 Time Last Intake of Fluids: 23:55 Date Last Intake of Solids: 05/02/20 Time Last Intake of Solids: 17:00 Past Medical History Medical History AMRCO (acute kidney injury) (Resolved) Clear cell carcinoma of kidney (Resolved) Kidney stone (Acute) Exercise / Class Metabolic Activity II 4-5 Yardwork/Stairs/Walk up hill Past Family History Family History Father Lung cancer Brain cancer Mother Breast cancer Diabetes Other No known problems Past Surgical History Surgical History H/O kidney removal (Acute) History of repair of ACL Hx of adenoidectomy Past Anesthesia History No Hx of Anesthesia Complications and No Family Hx of Anesthesia Complications History of PONV No Hx of PONV and No Hx of Motion Sickness Social History Smoking Status: Former smoker Smoking cigarettes per day: 20 Hx Alcohol Use: No Hx Substance Use: No Review of Systems denies fever/cough/ colds/ chest pain/ SOB/ MAHSA Constitutional: no fever and no chills Respiratory: no cough and no dyspnea denies MAHSA Cardiovascular: no chest pain and no dyspnea on exertion Physical Exam Vital Signs Last Vital Signs Temp 36.9 C 05/03/20 10:02 Pulse 95 H 05/03/20 10:02 Resp 16 05/03/20 10:02 BP 150/102 H 05/03/20 10:02 Pulse Ox 97 05/03/20 10:02 ENMT Mouth: no TMJ abnormality and no dentition abnormality Thyromental Distance: > or= 3.5 Finger Breadths Mallampati Class: II Neck neck extension not limited Respiratory normal respiratory effort; no respiratory distress Auscultation: lungs clear to auscultation bilaterally Cardiovascular Rate/Rhythm: regular rate and regular rhythm Neurologic moves all extremities Psychiatric Orientation: alert and oriented x 3 Testing Laboratory Results 05/03/20 10:24 05/03/20 10:24 Hemoglobin A1c 6.5 % (4.5-5.6) H 05/03/20 10:24 05/03/20 10:06 POC Glucose 102 H
--- NOTE | 2020-05-03 15:30 | Electrocardiogram Report ---
Test Reason : Blood Pressure : / mmHG Vent. Rate : 092 BPM Atrial Rate : 092 BPM P-R Int : 160 ms QRS Dur : 092 ms QT Int : 348 ms P-R-T Axes : 027 083 040 degrees QTc Int : 430 ms Normal sinus rhythm Normal ECG When compared with ECG of 05-JUN-2018 11:04, No significant change was found Confirmed by Nadir Tapia ([id number]) on 05/03/2020 3:30:03 PM Referred By: Will Hunt Confirmed By:Darius Tapia
[2020-05-03] MEDS ORDERED: PROPOFOL IV EMULSION 10 MG/ML 20 ML VIAL IV ONE (15:44)
[2020-05-03] MEDS ORDERED: ONDANSETRON INJ 2 MG/ML 2 ML VIAL ONE (15:45)
[2020-05-03] MEDS ORDERED: DEXAMETHASONE SOD INJ 4 MG/ML VIAL ONE (15:45)
--- NOTE | 2020-05-03 16:39 | Post Operative Brief Note ---
Immediate Post Op Note v1 Date of Surgery May 03, 2020 Pre & Post Diagnosis Operation Date: 05/03/20 12:05 Pre-Op Diagnosis: Left Quadricep Tendon Rupture, medial and lateral retinacular tear Post-Op Diagnosis: Left Quadricep Tendon Rupture, medial and lateral retinacular tear I identified the patient and participated in the time-out.: Yes Procedure Operation Date: 05/03/20 12:05 Actual Procedures p Left Quadricep Tendon and medial and lateral retinacular repair(Left) - Will Hunt MD Surgeon Will Hunt MD Radiographic Technologist MARIA LUISA Ramos Estimated Blood Loss 5 Findings Consistent with Post-Op Diagnosis Specimens None Anesthesia Type General/Epidural Complications none Disposition Accompanied Patient To Recovery: No Disposition: Recovery Room Overlapping Procedure I was immediately available: during the entire case.
--- NOTE | 2020-05-03 16:51 | Operative Report ---
Post Operative Report Pre & Post Diagnosis Operation Date: 05/03/20 12:05 Pre-Op Diagnosis: Left Quadricep Tendon Rupture, medial and lateral retinacular tear Post-Op Diagnosis: Left Quadricep Tendon Rupture, medial and lateral retinacular tear I identified the patient and participated in the time-out.: Yes Procedure Operation Date: 05/03/20 12:05 Actual Procedures p Left Quadricep Tendon and medial and lateral retinacular repair(Left) - Will Hunt MD Surgeon Will Hunt MD Human Resources Coordinator MARIA LUISA Ramos Estimated Blood Loss 5 Findings Consistent with Post-Op Diagnosis Specimens None Drains None Anesthesia Type General Regional Complications none Disposition Accompanied Patient To Recovery: No Disposition: Recovery Room Indications 49-year-old male suffered a fall injured his left knee. Patient has disrupted extensor mechanism unable to extend his knee. CT scan and MRI verifies complete quadriceps tendon disruption including extension into the medial and lateral retinaculum with tears of both medial and lateral retinaculum. Radiographs demonstrate patella Baha and lateral tilt consistent with disruption medial retinaculum medial patellofemoral ligament Description of Procedure Patient had a femoral nerve block placed and then taken to the operating room placed under general anesthesia. A pneumatic tourniquet was placed by his left upper thigh. His knee had stable ligaments and a large effusion ecchymosis and large defect in the quad tendon consistent with complete disruption. Left lower extremity was prepped and draped in sterile fashion. His leg was elevated exsanguinated with an Esmarch bandage and a pneumatic tourniquet was raised to 325 mmHg. Longitudinal incision was made through skin and subcutaneous tissues and subcutaneous flaps were elevated. This revealed the quadriceps tendon was torn off the superior patella. There was a small V-shaped portion of some superficial anterior fibers of the quad tendon still on the patella but these were thin and shredded and had poor tissue so they were removed. The tear extended down the medial retinaculum with complete disruption and the tear extended laterally into the lateral retinaculum over to the IT band and then up proximally longitudinally along the vastus lateralis. The knee was copiously irrigated. The frayed ends of the tendon were debrided back to better tendon tissue using Metzenbaum scissors and a scalpel. The retained soft tissue on the superior pole patella was excised with a scalpel and a curette was used to create a bony surface for repair of the quad tendon and rongeur was also used. Patient also had some chronic prepatellar bursitis with some thickened bands of prepatellar bursa that were resected. After further irrigation 3 drill holes were made longitudinally from superior to inferior through the patella. 2 Krakw sutures were placed into the quad tendon with excellent capture of the tendon tissue centrally. The sutures were passed through the drill holes utilizing a Joseph suture passer and Vicryl loop to pass the sutures. The knee was placed in full extension and sutures were tied over the inferior patella reducing the quadriceps tendon to the superior pole patella. The soft tissue repair was reinforced with interrupted [id number] #2 FiberWire. Then both medial and lateral retinaculum were repaired with erupted [id number] #2 FiberWire getting a complete repair. Assessed stability and there was no tension on the repair with 0 through 45 degrees range of motion. After further irrigation subcutaneous tissue closed into 2-0 Vicryl suture skin closed with maria l and a Silverlon dressing was placed. Compressive sterile wrap Rambo wrap applied and hinged knee brace locked in full extension. MARIA LUISA Ramos was my list of first job ideas and he assisted in patient positioning, prepping draping, leg positioning, and soft tissue retraction and closure of the subcutaneous and skin and placement of dressings and brace and will participate in postop care the patient. The patient tolerated the procedure well. I attest to the content of the Intraoperative Record and any orders documented therein. Any exceptions are noted below.
[2020-05-03] MEDS ORDERED: LABETALOL HCL IV 5 MG/ML 20ML IV ONE ×2 (17:03→17:04)
[2020-05-03] MEDS ORDERED: LABETALOL HCL IV 5 MG/ML 20ML IV PRN (17:04)
--- NOTE | 2020-05-03 17:25 | Anesthesiology Progress Note ---
Date of Service May 03, 2020 Anesthesia Post Procedure Vital Signs Vital Signs: Temp Pulse Pulse Resp BP BP Pulse Ox 05/03/20 17:15 97 H 12 140/92 97 05/03/20 17:05 98 H 13 154/104 H 100 05/03/20 16:55 102 H 14 149/111 H 100 05/03/20 16:47 36.7 C 102 H 15 175/150 H 100 05/03/20 10:02 36.9 C 95 H 16 150/102 H 97 Transfer of Care Handoff Completed per policy Notes Mental Status: alert / awake / arousable and participated in evaluation Patient Amnestic to Procedure: Yes Nausea / Vomiting: adequately controlled Pain: adequately controlled Airway Patency, RR, SpO2: stable & adequate BP & HR: stable & adequate Hydration State: stable & adequate Anesthetic Complications: no major complications apparent
[2020-05-03] MEDS ORDERED: HYDROmorphone INJ 0.5 MG/0.5 ML SYR IV PRN (17:57)
[2020-05-03] MEDS ORDERED: SODIUM CHLORIDE 0.9% 1000ML 1,000 ML IV SCH (17:57)
[2020-05-03] MEDS ORDERED: bisacodyL 10 MG SUPP PR PRN (17:57)
[2020-05-03] MEDS ORDERED: NON-FORMULARY MEDICATION (Dulaglutide [Trulicity] 1.5 MG) SQ SCH (17:57)
[2020-05-03] MEDS ORDERED: NALOXONE HCL 0.4 MG/1 ML VIAL/CARP IV PRN (17:57)
[2020-05-03] MEDS ORDERED: INSULIN ASPART 100 UNITS/ML 3 ML PEN SQ SCH (17:57)
[2020-05-03] MEDS ORDERED: MAGNESIUM HYDROXIDE SUSP 30 ML UDC PO PRN (17:57)
[2020-05-03] MEDS: OXYCODONE HCL IR 5 MG TAB (IMMEDIATE RELEASE) PO PRN (18:31)
[2020-05-03] MEDS ORDERED: PHARMACY GLYCEMIC MGMT CONSULT PRN (18:43)
[2020-05-03] MEDS ORDERED: HydrALAZINE HCL 20 MG/ML VIAL IV PRN (19:03)
[2020-05-03] MEDS: INSULIN ASPART 100 UNITS/ML 3 ML PEN SQ SCH ×2 (19:08→20:54)
--- NOTE | 2020-05-03 19:11 | Hospitalist Consultation ---
Date of Consultation May 03, 2020 Assessment & Plan (1) Quadriceps tendon rupture: * POD #0 s/p Left Quadricep Tendon Rupture, medial and lateral retinacular tear with Dr. Hunt on 05/03. EBL 5cc. Pre-op h/h 15.6/44.4 * PT/OT/pain management/DVT prophylaxis per primary team * CBC in AM (2) Hypertension: * Chronic. Elevated at 155/99 -- likely component of pain * Continue home losartan 25mg daily * Hydralazine prn * Continue to monitor (3) Type 2 diabetes mellitus, with long-term current use of insulin: * Follows outpatient with Dr. Holly. * A1c up to 6.5 from 5.9 in Dec 2019 * Hold Trulicity while inpatient * On insulin glargine 18units BID outpatient * Pharmacy was consulted for glycemic management by primary service BSG ac/hs . Goal 110-140, CF 20, Carb Ratio 1:7 Will need to monitor closely and adjust as needed given intra-op steroids (4) CKD (chronic kidney disease) stage 3, GFR 30-59 ml/min: * Chronic. Follows with Dr. Harrell. S/p nephrectomy June 2018 for clear cell ca * Baseline Cr 1.3-1.5 * Cr stable at 1.2 (5) Solitary left kidney: * s/p nephrectomy June 2018 * Follows locally with Dr. Harrell (6) Vitamin D deficiency: * New. Recent labs from Dec 2019 --> low at 12.7 * Starting oral supplementation -- to be continued at discharge (7) Dyslipidemia: * History of and had been on atorvastatin in the past * GIven hx diabetes, would rec re-initiating. Patient agreeable --> continue at discharge (8) DVT prophylaxis: * Per primary * Homer Thank you for allowing hospitalist team to participate in the care of Mr. Mondragon. Hospitalist service will follow along. Supervising Physician Co-Signing Physician Notes Attending Attestation & Consult Note: Pt seen/examined, chart reviewed, consult care plan d/w MARIA LUISA Powell. I agree w/ the aquino components of her consult documentation. 49yo male with CKD stage 3, solitary kidney status, T2DM - ruptured his quadriceps tendon last week after an injury while entering a narrow hallway. Underwent quadriceps tendon repair today by Dr Hunt. I saw him post-op on surgical floor and he denied any complaints. PMH, PSH, allergies, meds, sochx, famhx - reviewed VSS, no fever gen - NAD neck - no JVD heart - RRR, s1 s2 lungs - CTA b/l abd - soft NT ext - left knee in knee immobilizer, dressings intact; pulses feet 2+ b/l Cr 1.2 today A/P: 1. s/p left quadriceps tendon rupture repair by Dr Hunt today 2. T2DM - pharmacy consulted for management 3. solitary kidney with CKD stage 3 - BMP am for stability other plans per Ms Andre Allison MD History of Present Illness Reason for Consultation: Post-op management Requesting Physician: Dr Hunt Attending Physician: Will Hunt MD History of Present Illness 49 year old male with PMHx significant for DM II (on insulin), CKD III (s/p nephrectomy for clear cell CA 2017), HTN, HLD presented for left quadriceps tendon repair with Dr. Hunt after falling at home. Patient states his pain is still pretty significant but his headache post- operatively is now gone. He rates this pain as an 8/10 after administration of toradol and fentanyl. Eating/drinking without difficulty. Does endorse some sore throat following the procedure. Urinating without difficulty. Denies any chest pain, shortness of breath, n/v/d/c, numbness/tingling or other concerns at this time. Patient would like us to inform Dr. Holly that he is in the hospital as he was supposed to follow up with him next week to review labs and further tighten his blood sugars. He states Dr. Holly had wanted him to take more insulin but they were going to discuss that at follow up visit. A1c now up to 6.5 from 5.9 in Dec. Discussed low vitamin D level and that we will initiate supplementation. Patient also had lipid panel done recently which showed elevated triglycerides and cholesterol. He states he was on a statin previously, he believes atorvastatin 10mg at night, but he has not taken this in quite some time. Agreeable to initiate statin therapy while inpatient. Allergies Allergy/AdvReac Type Severity Reaction Status Date / Time No Known Allergies Allergy Verified 05/03/20 10:00 Home Medications Home Medications Medication Instructions Recorded Confirmed Type insulin aspart U-100 [Novolog 0 unit SUBCUT UD 06/26/19 05/03/20 History Flexpen U-100 Insulin] BD Ultra-Fine Mini Pen Needle 31 #200 ea NS 06/30/19 01/07/20 Rx gauge x 3/16" blood sugar diagnostic #10 ea 07/16/19 01/07/20 History lancets See Rx Instructions .ROUTE .COMPLEX 07/16/19 01/07/20 History losartan 25 mg tablet 25 mg PO DAILY #90 tab 04/04/20 05/03/20 Rx Trulicity 1.5 mg/0.5 mL 1.5 mg SQ WEEKLY #2 ml NS 04/25/20 05/03/20 Rx subcutaneous pen injector insulin glargine [Basaglar KwikPen 18 units SUBCUT BID 04/28/20 05/03/20 History U-100 Insulin] acetaminophen [Tylenol Extra 500 mg PO Q6H PRN 05/03/20 05/03/20 History Strength] Patient History Family History Father Lung cancer Brain cancer Mother Breast cancer Diabetes Other No known problems Social History Preferred Language: Upper Sorbian Communication Ability: Effective Activity Therapist Required: No Beliefs That Will Affect Care: None marital status: Single Current Living Situation: Alone Other Information That Helps Us Care for You: No Feels Safe at Home: Yes Safety Concerns: Feels Safe At This Time Smoking Status: Former smoker Cigarettes Per Day: 20 ; Tobacco Cessation Education Requested by Patient: No Hx Alcohol Use: No Hx Substance Use: No Review of Systems Review of Systems: All systems reviewed & are unremarkable except as noted in HPI & below Physical Exam Constitutional: WD/WN, vitals as above no acute distress Eyes: PERRL, conjunctivae normal, anicteric sclerae ENMT: external ear and nose normal, oropharynx normal Neck: trachea midline, no thyromegaly Respiratory: normal respiratory effort, lungs clear to auscultation Cardiovascular: RRR, no murmur, no edema Gastrointestinal (Abdomen): normal bowel sounds, soft, nontender, no hepatosplenomegaly Musculoskeletal: no cyanosis or clubbing, extremities motor strength 5/5 brace and dressing to LLE c/d/i NVI, 2+ pt, dp pulses bilaterally Skin: healing blister medial right ankle Neurologic: patellar DTR's 2+ bilat, sensation intact Psychiatric: A+Ox3, euthymic affect Lymphatic: no cervical or axillary lymphadenopathy Results & Data Results & Data ([facility]) Vital Signs (Past 12 Hours) Vital Signs Temp Pulse Pulse Resp BP BP Pulse Ox 05/03/20 18:27 36.9 C 98 H 14 155/99 H 95 05/03/20 18:09 37.2 C 100 H 14 142/91 H 96 05/03/20 17:45 96 H 12 143/96 H 96 05/03/20 17:35 96 H 13 144/96 H 95 05/03/20 17:25 37.0 C 96 H 14 143/102 H 96 05/03/20 17:15 97 H 12 140/92 97 05/03/20 17:05 98 H 13 154/104 H 100 05/03/20 16:55 102 H 14 149/111 H 100 05/03/20 16:47 36.7 C 102 H 15 175/150 H 100 05/03/20 10:02 36.9 C 95 H 16 150/102 H 97 Laboratory Results 05/03/20 05/03/20 05/03/20 Range/Units 18:43 16:53 10:24 WBC (4.8-10.8) K/uL RBC (4.7-6.1) M/uL Hgb (14.0-18.0) g/dL Hct (42-52) % MCV (80-100) fL MCH (25-34) pg MCHC (32-36) g/dL RDW Std Deviation (36.4-46.3) fL RDW Coeff of Doris (11.5-14.5) % Plt Count (130-400) K/uL MPV (7.4-10.4) fL Immature Gran % (Auto) % Neut % (Auto) % Lymph % (Auto) % [place] % (Auto) % Eos % (Auto) % Baso % (Auto) % Immature Gran # (Auto) (0.00-0.02) K/uL Neut # (Auto) (1.4-6.5) K/uL Lymph # (Auto) (1.2-3.4) K/uL [place] # (Auto) (0.11-0.59) K/uL Eos # (Auto) (0-0.5) K/uL Baso # (Auto) (0-0.2) K/uL Sodium (136-145) mmol/L Potassium (3.5-5.1) mmol/L Chloride (98-107) mmol/L Carbon Dioxide (21-32) mmol/L Anion Gap (3-11) BUN (7-18) mg/dl Creatinine (0.6-1.4) mg/dl Est Cr Clr Drug Dosing ml/min Est GFR ( Amer) Est GFR (Non-Af Amer) BUN/Creatinine Ratio (10-20) Glucose (70-99) mg/dl POC Glucose 186 H 152 H (70-99) mg/dl Estimat Average Glucose 140 mg/dl Hemoglobin A1c 6.5 H (4.5-5.6) % Calcium (8.5-10.1) mg/dl 05/03/20 05/03/20 05/03/20 Range/Units 10:24 10:24 10:06 WBC 7.80 (4.8-10.8) K/uL RBC 4.71 (4.7-6.1) M/uL Hgb 15.6 (14.0-18.0) g/dL Hct 44.4 (42-52) % MCV 94.3 (80-100) fL MCH 33.1 (25-34) pg MCHC 35.1 (32-36) g/dL RDW Std Deviation 46.0 (36.4-46.3) fL RDW Coeff of Doris 13.4 (11.5-14.5) % Plt Count 254 (130-400) K/uL MPV 9.5 (7.4-10.4) fL Immature Gran % (Auto) 0.3 % Neut % (Auto) 43.2 % Lymph % (Auto) 45.4 % [place] % (Auto) 7.7 % Eos % (Auto) 3.1 % Baso % (Auto) 0.3 % Immature Gran # (Auto) 0.02 (0.00-0.02) K/uL Neut # (Auto) 3.38 (1.4-6.5) K/uL Lymph # (Auto) 3.54 H (1.2-3.4) K/uL [place] # (Auto) 0.60 H (0.11-0.59) K/uL Eos # (Auto) 0.24 (0-0.5) K/uL Baso # (Auto) 0.02 (0-0.2) K/uL Sodium 137 (136-145) mmol/L Potassium 4.1 (3.5-5.1) mmol/L Chloride 105 (98-107) mmol/L Carbon Dioxide 28 (21-32) mmol/L Anion Gap 4.0 (3-11) BUN 18 (7-18) mg/dl Creatinine 1.21 (0.6-1.4) mg/dl Est Cr Clr Drug Dosing 95.4 ml/min Est GFR ( Amer) 81.0 Est GFR (Non-Af Amer) 69.9 BUN/Creatinine Ratio 14.8 (10-20) Glucose 101 H (70-99) mg/dl POC Glucose 102 H (70-99) mg/dl Estimat Average Glucose mg/dl Hemoglobin A1c (4.5-5.6) % Calcium 8.7 (8.5-10.1) mg/dl PG Care Time/CCT Total # of Minutes Spent Total Time Spent with Patient: Total time spent is greater than 50% in coordination of care (as documented) at patient's floor/unit and/or counseling patient: Coding Level of Care Code 16851 Inpt Consult Level 3 Diagnoses Quadriceps tendon rupture S76.119A Hypertension I10 Type 2 diabetes mellitus, with long-term current use of insulin E11.9; Z79.4 CKD (chronic kidney disease) stage 3, GFR 30-59 ml/min N18.3 Solitary left kidney Q60.0 Vitamin D deficiency E55.9 Dyslipidemia E78.5 DVT prophylaxis Z29.9
[2020-05-03] MEDS: CHOLECALCIFEROL 1,000 UNITS 25 MCG TAB PO SCH (20:14)
[2020-05-03] MEDS: DOCUSATE SODIUM 100 MG CAP PO SCH (20:15)
--- NOTE | 2020-05-03 20:58 | Pharmacy Report ---
Pharmacy Glycemic Short Note 2 - Date of Service May 03, 2020 - Glycemic Short BSG Results (Last 24 hours): 05/03/20 05/03/20 05/03/20 10:06 10:24 16:53 Glucose 101 H POC Glucose 102 H 152 H 05/03/20 05/03/20 18:43 20:43 Glucose POC Glucose 186 H 216 H OUTPATIENT ANTIDIABETIC REGIMEN: * Basaglar 18units BID/Trulicity 1.5mg Weekly/Novolog ASSESSMENT: * Pt s/p left quad tendon rupture repair. Received Dexamethasone in OR. PLAN FOR INPATIENT GLYCEMIC CONTROL: * Hold outpatient oral diabetes medications * Basal insulin * Lantus scale :If BSG less than 140 give 10 units/IF BSG greater give 15 units * Bolus insulin * NovoLog per scale ACHS or Q6hrs while NPO * Goal Range: Low 110 mg/dL - 140 High mg/dL * Correction Factor: 20 mg/dL/unit * Nutritional / Prandial insulin per carb ratio of 1 unit per 7 grams CHO consumed will do overnight checks to monitor BSGs PLAN FOR DISCHARGE: *
[2020-05-03] MEDS ORDERED: SENNA 8.6 MG TAB PO SCH (21:00)
[2020-05-03] MEDS ORDERED: INSULIN GLARGINE SOLOSTAR 100 UNITS/ML 3 ML PEN SQ SCH (21:00)
[2020-05-03] MEDS ORDERED: ATORVASTATIN 10 MG TAB PO SCH (21:00)
[2020-05-03] MEDS: CEFAZOLIN 2000MG 2,000 MG/15 ML SYR IV SCH (22:09)
[2020-05-03] MEDS: ACETAMINOPHEN 500 MG TAB PO SCH (22:09)
[2020-05-04] MEDS: INSULIN ASPART 100 UNITS/ML 3 ML PEN SQ SCH ×3 (00:14→09:08)
[2020-05-04] MEDS: OXYCODONE HCL IR 5 MG TAB (IMMEDIATE RELEASE) PO PRN (00:19)
[2020-05-04] MEDS ORDERED: CALCIUM CARBONATE 500 MG CHEWABLE TAB PO PRN (00:38)
[2020-05-04] MEDS: FAMOTIDINE 20 MG TAB PO SCH ×2 (01:28→08:40)
[2020-05-04 05:23] LABS: Hematocrit (blood only) 42.7 % (42-52); Hemoglobin 15.1 g/dL (14.0-18.0); Mean Corpuscular Hemoglobin 33.1 pg (25-34); Mean Corpuscular Hgb Conc 35.4 g/dL (32-36); Mean Corpuscular Volume 93.6 fL (80-100); Mean Platelet Volume 9.7 fL (7.4-10.4); Platelet Count 266 K/uL (130-400); RDW Coefficient of Variation 13.2 % (11.5-14.5); Red Blood Count 4.56 M/uL (4.7-6.1); White Blood Count 12.25 K/uL (4.8-10.8)
[2020-05-04 05:53] LABS: BUN Creatinine Ratio 13.2 (10-20); Calcium 8.6 mg/dl (8.5-10.1); Creatinine Clr Calc Pharmacy 80.7 ml/min; Est GFR (African American) 66.2; Est GFR (Non-African American) 57.1; Potassium 4.3 mmol/L (3.5-5.1)
[2020-05-04] MEDS: CEFAZOLIN 2000MG 2,000 MG/15 ML SYR IV SCH (06:46)
[2020-05-04] MEDS: ACETAMINOPHEN 500 MG TAB PO SCH (06:52)
--- NOTE | 2020-05-04 08:16 | Orthopedic Progress Note ---
Date of Service May 04, 2020 Assessment & Plan (1) Quadriceps tendon rupture: POD #1, Left Quad tendon repair Brace at all times in extension, no flexion. WBAT. Ice/elevate as needed. Pain control. Admission and Anticipated Discharge Date Admission Date: May 03, 2020 Subjective POD #1, Feeling well. Denies SOB, CP, N/V Pain controlled well. Wishes home upon D/C. Physical Exam Physical Exam: LEft knee dressing/ brace in tact. Toes/ ankle mobile. No calf tenderness. A&Ox3. Results & Data ([facility]) Vital Signs (Past 12 Hours) Vital Signs Temp Pulse Pulse Resp BP Pulse Ox 05/04/20 07:46 36.5 C 84 18 135/77 98 05/04/20 03:13 36.7 C 91 H 16 133/75 94 05/03/20 23:00 36.9 C 100 H 16 143/87 H 92 05/03/20 21:00 37.0 C 92 H 16 140/88 94
[2020-05-04] MEDS: DOCUSATE SODIUM 100 MG CAP PO SCH (08:40)
[2020-05-04] MEDS: CHOLECALCIFEROL 1,000 UNITS 25 MCG TAB PO SCH (08:40)
[2020-05-04] MEDS ORDERED: LOSARTAN POTASSIUM 25 MG TAB PO SCH (09:00)
[2020-05-04] MEDS ORDERED: MULTIVITAMIN TAB PO SCH (09:00)
--- NOTE | 2020-05-04 09:38 | Hospitalist Progress Note ---
Date of Service May 04, 2020 Assessment & Plan (1) Quadriceps tendon rupture: * POD #1 s/p Left Quadricep Tendon Rupture, medial and lateral retinacular tear repair with Dr. Hunt on 05/03. EBL 5cc. Pre-op h/h 15.6/44.4 * PT/OT/pain management/DVT prophylaxis per primary team * h/h stable (2) Hypertension: * Chronic. * BP 135/77 * Holding losartan AM post-op --> to resume tomorrow * Hydralazine prn * Continue to monitor (3) Type 2 diabetes mellitus, with long-term current use of insulin: * Follows outpatient with Dr. Holly. * A1c up to 6.5 from 5.9 in Dec 2019 * Hold Trulicity while inpatient * On insulin glargine 18units BID outpatient * Pharmacy was consulted for glycemic management by primary service BSG ac/hs . Goal 110-140, CF 20, Carb Ratio 1:7 Will need to monitor closely and adjust as needed given intra-op steroids Discharge home on home regimen and follow up with Dr. Holly next week as previously scheduled (4) CKD (chronic kidney disease) stage 3, GFR 30-59 ml/min: * Chronic. Follows with Dr. Harrell. 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 Harrell (6) Vitamin D deficiency: * New. Recent labs from Dec 2019 --> low at 12.7 * Started oral supplementation -- to be continued at discharge (7) Dyslipidemia: * History of and had been on atorvastatin in the past * GIven hx diabetes, would rec re-initiating. Patient agreeable --> initiated atorvastatin 10mg daily, continued at discharge (8) DVT prophylaxis: * Per primary * Homer Thank you for allowing hospitalist team to participate in the care of Mr. Mondragon. Hospitalist service will sign off. Admission and Anticipated Discharge Date Admission Date: May 03, 2020 Supervising Physician Co-Signing Physician Notes PA Supervision Note: I did not personally see or examine the patient today, but I verified all aquino points of MARIA LUISA Powell's assessment and plan with the following exceptions/additions: None Subjective Patient doing well. Pain controlled. Eating/drinking without difficulty. Plans for discharge home today. Discussed that I sent message to Dr Holly's office and that we will send rx for atorvastatin and vitamin D and to follow up with him next week. Denies fevers, chills, chest pain, shortness of breath, abdominal discomfort, n/v/d, dysuria at this time. Review of Systems Review of Systems: All systems reviewed & are unremarkable except as noted in HPI & below Physical Exam Constitutional: WD/WN, vitals as above no acute distress Eyes: PERRL, conjunctivae normal, anicteric sclerae ENMT: external ear and nose normal, oropharynx normal Neck: trachea midline, no thyromegaly Respiratory: normal respiratory effort, lungs clear to auscultation Cardiovascular: RRR, no murmur, no edema Gastrointestinal (Abdomen): normal bowel sounds, soft, nontender, no hepatosplenomegaly Musculoskeletal: no cyanosis or clubbing, extremities motor strength 5/5 brace to left knee. dressing c/d/i NVI Neurologic: patellar DTR's 2+ bilat, sensation intact Psychiatric: A+Ox3, euthymic affect Lymphatic: no cervical or axillary lymphadenopathy Results & Data Results & Data ([facility]) Vital Signs (Past 12 Hours) Vital Signs Temp Pulse Pulse Resp BP Pulse Ox 05/04/20 07:46 36.5 C 84 18 135/77 98 05/04/20 03:13 36.7 C 91 H 16 133/75 94 05/03/20 23:00 36.9 C 100 H 16 143/87 H 92 Laboratory Results 05/04/20 05/04/20 05/04/20 Range/Units 08:10 05:11 05:11 WBC 12.25 H (4.8-10.8) K/uL RBC 4.56 L (4.7-6.1) M/uL Hgb 15.1 (14.0-18.0) g/dL Hct 42.7 (42-52) % MCV 93.6 (80-100) fL MCH 33.1 (25-34) pg MCHC 35.4 (32-36) g/dL RDW Std Deviation 45.0 (36.4-46.3) fL RDW Coeff of Doris 13.2 (11.5-14.5) % Plt Count 266 (130-400) K/uL MPV 9.7 (7.4-10.4) fL Sodium 135 L (136-145) mmol/L Potassium 4.3 (3.5-5.1) mmol/L Chloride 103 (98-107) mmol/L Carbon Dioxide 26 (21-32) mmol/L Anion Gap 6.0 (3-11) BUN 19 H (7-18) mg/dl Creatinine 1.43 H (0.6-1.4) mg/dl Est Cr Clr Drug Dosing 80.7 ml/min Est GFR ( Amer) 66.2 Est GFR (Non-Af Amer) 57.1 BUN/Creatinine Ratio 13.2 (10-20) Glucose 155 H (70-99) mg/dl POC Glucose 110 H (70-99) mg/dl Calcium 8.6 (8.5-10.1) mg/dl 05/04/20 05/03/20 05/03/20 Range/Units 03:12 23:53 20:43 WBC (4.8-10.8) K/uL RBC (4.7-6.1) M/uL Hgb (14.0-18.0) g/dL Hct (42-52) % MCV (80-100) fL MCH (25-34) pg MCHC (32-36) g/dL RDW Std Deviation (36.4-46.3) fL RDW Coeff of Doris (11.5-14.5) % Plt Count (130-400) K/uL MPV (7.4-10.4) fL Sodium (136-145) mmol/L Potassium (3.5-5.1) mmol/L Chloride (98-107) mmol/L Carbon Dioxide (21-32) mmol/L Anion Gap (3-11) BUN (7-18) mg/dl Creatinine (0.6-1.4) mg/dl Est Cr Clr Drug Dosing ml/min Est GFR ( Amer) Est GFR (Non-Af Amer) BUN/Creatinine Ratio (10-20) Glucose (70-99) mg/dl POC Glucose 153 H 154 H 216 H (70-99) mg/dl Calcium (8.5-10.1) mg/dl 0605/03/20 05/03/20 Range/Units 18:43 16:53 10:24 WBC (4.8-10.8) K/uL RBC (4.7-6.1) M/uL Hgb (14.0-18.0) g/dL Hct (42-52) % MCV (80-100) fL MCH (25-34) pg MCHC 35.1 (32-36) g/dL RDW Std Deviation (36.4-46.3) fL RDW Coeff of Doris (11.5-14.5) % Plt Count (130-400) K/uL MPV (7.4-10.4) fL Sodium (136-145) mmol/L Potassium (3.5-5.1) mmol/L Chloride (98-107) mmol/L Carbon Dioxide (21-32) mmol/L Anion Gap (3-11) BUN (7-18) mg/dl Creatinine (0.6-1.4) mg/dl Est Cr Clr Drug Dosing ml/min Est GFR ( Amer) Est GFR (Non-Af Amer) BUN/Creatinine Ratio (10-20) Glucose (70-99) mg/dl POC Glucose 186 H 152 H (70-99) mg/dl Calcium (8.5-10.1) mg/dl PG Care Time/CCT Total # of Minutes Spent Total Time Spent with Patient: Total time spent is greater than 50% in coordination of care (as documented) at patient's floor/unit and/or counseling patient: Coding Level of Care Code 68839 Subseq Hosp Care Lvl 2 Diagnoses Quadriceps tendon rupture S76.119A Hypertension I10 Type 2 diabetes mellitus, with long-term current use of insulin E11.9; Z79.4 CKD (chronic kidney disease) stage 3, GFR 30-59 ml/min N18.3 Solitary left kidney Q60.0 Vitamin D deficiency E55.9 Dyslipidemia E78.5 DVT prophylaxis Z29.9
[2020-05-04] MEDS ORDERED: RIVAROXABAN 10 MG TABLET PO SCH (16:00)
--- NOTE | 2020-05-21 21:21 | Discharge Summary (DS) ---
HISTORY OF PRESENT ILLNESS: This is a 49-year-old male patient of Dr. Hunt'violeta complaining of knee injury from 04/27/2020. The patient apparently fell into a wall at his home. He was unable to ambulate and was transported to the hospital. CT scan showed a quad tendon rupture. MRI is pending to confirm the diagnosis, the patient agreed, elected to proceed with left quad tendon repair. PAST MEDICAL HISTORY: Hypertension, diabetes mellitus, acid reflux, and right kidney cancer with right nephrectomy in the past. POSTOPERATIVE COURSE: The patient underwent a left knee quad tendon repair on 05/03/2020. He did very well postoperatively and was discharged home on postoperative day #1. The patient will continue his preadmission medications with the addition of DVT prophylaxis and pain medication. We will keep his knee locked in extension at all times with a Michael brace. He will follow up as scheduled as an outpatient.
== END 2020-05-04 11:01 | disposition home or self-care (01) ==
LOC: 3N 09:39 → ASU 09:39
DX: Z90.5 Acquired absence of kidney; Z85.528 Personal history of other malignant neoplasm of kidney; S76.112A Strain of left quadriceps muscle, fascia and tendon, initial encounter; Z79.4 Long term (current) use of insulin; I10 Essential (primary) hypertension; W19.XXXA Unspecified fall, initial encounter; N18.3 Chronic kidney disease, stage 3 (moderate); Z79.01 Long term (current) use of anticoagulants; E78.5 Hyperlipidemia, unspecified; E55.9 Vitamin D deficiency, unspecified; E11.9 Type 2 diabetes mellitus without complications; Z87.891 Personal history of nicotine dependence

== ENCOUNTER 2022-11-09 12:17 | Inpatient (IN) ==
--- NOTE | 2022-11-09 13:15 | Emergency Department Note ---
Impression & Plan Acute non-ST elevation myocardial infarction (NSTEMI), Pulmonary edema, RAUSCH (dyspnea on exertion) ED Provider Note NAME: JIMMY LICONA AGE: 52 SEX: M : 1970 ARRIVES VIA: Walk-In INFORMANT: Patient, ED PROVIDER(S): Christopher Jj DO CHIEF COMPLAINT: Difficulty breathing HPI: The patient is a 52-year-old male who has a history of diabetes as well as tobacco use who presented to the emergency department for an evaluation of difficulty breathing. The patient states he has had ongoing symptoms for at least the last few weeks. He states he noticed worsening symptoms over the course the last few days. He feels though he cannot breathe he is having difficulty getting a deep breath. He thinks it is more like bronchospasm and wheezing. He is tried [id number]-becvqzk medication such as Primatene Mist. He is not been seen by his family doctor for the symptoms. He denies having any hemoptysis. He denies having any fever. The patient states that he has been compliant with his outpatient medications otherwise. He also describes a burning sensation across his anterior chest. He states that this pain is not constant. Symptoms are worsened with any exertion. Patient was placed on supplemental oxygen by nursing. He states that this improves his symptoms somewhat. ROS: See above HPI for pertinent positives & negatives. A total of 10 systems reviewed and were otherwise negative. PAST MEDICAL HISTORY: See Below PAST SURGICAL HISTORY: See Below FAMILY HISTORY: See Below SOCIAL HISTORY: See Below HOME MEDICATIONS: See Below ALLERGIES: See Below VITALS: See Below PHYSICAL EXAMINATION: GENERAL: Patient is awake alert in no acute distress patient is resting comfortably and showing no signs of anxiety EYES: The conjunctivae are clear. The pupils are round and reactive. EARS, NOSE, MOUTH AND THROAT: The nose is without any evidence of any deformity. NECK: The neck is nontender and supple. RESPIRATORY: Diminished breath sounds are noted throughout. There is no tachypnea or conversational dyspnea. CARDIOVASCULAR: Tachycardic and regular heart sounds were noted auscultation. There is no definite murmur. GASTROINTESTINAL: The abdomen is soft. Abdomen is nontender. MUSCULOSKELETAL/EXTREMITIES: There is no evidence of gross deformity full range of motion is noted in the hips and shoulders. SKIN: There is no obvious evidence of any rash. There are no petechiae, pallor or cyanosis noted. NEUROLOGIC: Patient is awake alert and oriented x3 MEDICAL DECISION MAKING: Patient is a 52-year-old male who has a history of tobacco use as well as diabetes who presented to the emergency department for an evaluation of the difficulty breathing dyspnea on exertion as well as chest pain. The patient's initial EKG appeared to be consistent with very poor R wave progression in anterior Q waves. I discussed the patient's laboratory and radiographic studies with him. He was found to have an elevation in his troponin. I do feel that this could be from a cardiac source and could be consistent with an NSTEMI. Patient was started on heparin. He was also treated with a small dose of Lasix as well as aspirin. I discussed the patient's condition with the on-call [facility] hospitalist. They have agreed to evaluate the patient in the emergency department for further management and disposition. Triage Nursing notes reviewed. Prior medical records reviewed Vital Signs: reviewed and remarkable for elevated blood pressure tachycardia and tachypnea. Differential diagnosis: Reactive airway disease, pneumonia, pneumothorax, COPD, CHF, infections, cardiac ischemia, pulmonary embolism, musculoskeletal, gastrointestinal, as well as other pathologies. ER treatment provided: See below Diagnostics interpreted by me: ECG: EKG was obtained in the emergency department. My interpretation is sinus tachycardia 122 bpm. Anterior Q waves were noted with poor R wave progression. Nonspecific ST segment abnormalities were noted otherwise. This was compared to a tracing from May 03, 2020. The changes are new compared to previous tracing. Cardiac Monitoring: An order was placed for continuous cardiac monitoring. The monitor shows a rate of 124 bpm with sinus tachycardia. Laboratory studies: As stated above and show below. Imaging studies: See below Consultation(s): I discussed this case with Dr. De La Vega who is on-call for the [facility] cardiology group. I discussed this case with Dr Arreola who is on-call for the [facility] hospitalist group. ED COURSE: Procedures: none Critical Care: I have personally spent greater than 55 minutes of critical care time in the direct management of this patient. This includes bedside care, interpretation of diagnostic studies, and testing, discussion with consultants, patient, and family members, and other required patient management activities. This 55 minutes is in excess of all separately billable procedures. Past Med/Surg History Medical History MARCO (acute kidney injury) Chronic kidney disease, stage 3a Clear cell carcinoma of kidney Dyslipidemia Hypertension Overweight Quadriceps tendon rupture Solitary left kidney Surgical History H/O kidney removal History of repair of ACL Hx of adenoidectomy Family History Father Lung cancer Brain cancer Mother Breast cancer Diabetes Other No known problems Social History Smoking Status: Current every day smoker Tobacco Type: Cigarettes Cigarettes Per Day: 20; Hx Alcohol Use: No Hx Substance Use: No Preferred Language: Greek Communication Ability: Effective 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 Required: No Beliefs That Will Affect Care: None marital status: Single Current Living Situation: Alone Feels Safe at Home: Yes Assistive Devices: Walker Allergies Allergies Allergy/AdvReac Type Severity Reaction Status Date / Time No Known Allergies Allergy Verified 11/09/22 15:25 Home Meds Home Medications Medication Instructions Recorded Confirmed blood sugar diagnostic (OneTouch #10 ea 08/13/21 10/03/22 Verio test strips) Primatine Mist 2 puff inhalation DIRECTED PRN 11/09/22 11/09/22 Shortness Of Breath Or Wheezing Previous Rx's Medication Instructions Recorded BD Ultra-Fine Mini Pen Needle 31 #200 ea 06/30/19 gauge x 3/16" (pen needle, diabetic) atorvastatin 20 mg tablet 20 mg PO QPM #90 tabs 09/14/21 Trulicity 1.5 mg/0.5 mL 1.5 mg (0.5 mL) subcut WEEKLY #6 mL 02/26/22 subcutaneous pen injector (dulaglutide) flash glucose sensor (FreeStyle #2 ea 03/15/22 [place]osa 14 Day Sensor kit) insulin glargine 100 unit/mL (3 20 unit (0.2 mL) subcut BID #15 mL 06/04/22 mL) subcutaneous pen (Lantus Solostar U-100 Insulin) cholecalciferol (vitamin D3) 1,250 1,250 mcg PO .COMPLEX #12 caps 10/03/22 mcg (50,000 unit) capsule losartan 100 mg tablet 100 mg PO DAILY #90 tabs 10/03/22 Results & Data (ED) Vital Signs Vital Signs - 24 hr 11/09/22 12:29 11/09/22 12:56 11/09/22 13:00 Temperature 36.1 C L Temperature Source Temporal Artery Scan Pulse Rate 128 H 117 H 116 H Pulse Rate from SpO2 Sensor 117 H 115 H Respiratory Rate 18 23 24 Respiratory Effort / Characteristics Non-Labored Respiratory Depth Normal Respiratory Pattern Regular Blood Pressure 124/88 144/102 H 156/107 H Blood Pressure Mean 100 116 123 Pulse Oximetry 96 92 95 Oxygen Delivery Method Room Air Room Air Nasal Cannula Oxygen Flow Rate 3 Sepsis Recent Fever Within 48 Hours No Sepsis New/Unexplained Change in Mental Status N/A Sepsis Action Taken by Nursing No Action Required 11/09/22 13:05 11/09/22 13:30 11/09/22 14:00 Temperature Temperature Source Pulse Rate 109 H Pulse Rate from SpO2 Sensor 109 H Respiratory Rate 24 Respiratory Effort / Characteristics Respiratory Depth Respiratory Pattern Blood Pressure 144/108 H 144/106 H Blood Pressure Mean 120 118 Pulse Oximetry 96 Oxygen Delivery Method Room Air Oxygen Flow Rate 3 Sepsis Recent Fever Within 48 Hours Sepsis New/Unexplained Change in Mental Status Sepsis Action Taken by Nursing 11/09/22 14:00 11/09/22 14:30 11/09/22 14:30 Temperature Temperature Source Pulse Rate 113 H 124 H Pulse Rate from SpO2 Sensor 113 H 125 H Respiratory Rate 24 31 H Respiratory Effort / Characteristics Respiratory Depth Respiratory Pattern Blood Pressure 172/113 H Blood Pressure Mean 132 Pulse Oximetry 95 94 Oxygen Delivery Method Oxygen Flow Rate Sepsis Recent Fever Within 48 Hours Sepsis New/Unexplained Change in Mental Status Sepsis Action Taken by Alf Medications Current Medication List: was personally reviewed by me Laboratory Data Attestation: I reviewed the patient's lab results. Result diagrams: 11/09/22 12:55 11/09/22 12:55 Lab Results 11/09/22 11/09/22 11/09/22 Range/Units 12:55 12:55 12:55 WBC 9.24 (4.8-10.8) K/ul RBC 4.78 (4.63-6.08) M/uL Hgb 15.4 (14.0-18.0) g/dl Hct 44.7 (40.1-51.0) % MCV 93.5 (80.0-100.0) fL MCH 32.2 (25.0-34.0) pg MCHC 34.5 (32.0-36.0) g/dL RDW Std Deviation 43.8 (36.4-46.3) fL RDW Coeff of Doris 12.7 (11.5-14.5) % Plt Count 455 H (130-400) K/uL MPV 9.3 L (9.4-12.4) fL Immature Gran % (Auto) 0.4 % Neut % (Auto) 70.7 % Lymph % (Auto) 21.8 % [place] % (Auto) 5.7 % Eos % (Auto) 1.0 % Baso % (Auto) 0.4 % Neut # (Auto) 6.53 H (1.4-6.5) K/uL Lymph # (Auto) 2.01 (1.2-3.4) K/uL [place] # (Auto) 0.53 (0.24-0.82) K/uL Eos # (Auto) 0.09 (0-0.50) K/uL Baso # (Auto) 0.04 (0-0.2) K/uL Immature Gran # (Auto) 0.04 H (0.00-0.02) K/uL PT 11.7 (9.0-12.0) Seconds INR 1.1 (0.9-1.1) APTT 26.9 (21.0-31.0) Seconds PTT Ratio 1.0 VBG pH (7.36-7.41) VBG pCO2 (38-50) mmHg VBG pO2 mmHg VBG HCO3 mmol/L VBG O2 Saturation % VBG Base Excess mEq/L Sodium 135 L (136-145) mmol/L Potassium 4.5 (3.5-5.1) mmol/L Chloride 98 (98-107) mmol/L Carbon Dioxide 26 (21-32) mmol/L Anion Gap 11 (3-11) BUN 15 (6-23) mg/dl Creatinine 1.28 (0.6-1.4) mg/dl Est Cr Clr Drug Dosing 88.2 ml/min Est GFR ( Amer) 74.1 ml/min Est GFR (Non-Af Amer) 63.9 ml/min BUN/Creatinine Ratio 11.7 (10-20) Glucose 201 H (70-99(Fasting)) mg/dl Calcium 9.0 (8.5-10.1) mg/dl Magnesium 1.9 (1.7-2.4) mg/dl Total Bilirubin 0.5 (0.2-1.0) mg/dl AST 22 (13-39) U/L ALT 18 (7-52) U/L Alkaline Phosphatase 71 (34-104) U/L Troponin I High Sens 1402.0 H* (0-20) pg/ml B-Natriuretic Peptide (0-100) pg/ml Total Protein 7.5 (6.0-8.3) gm/dl Albumin 3.9 (3.4-5.0) gm/dl Globulin 3.6 (2.5-4.0) gm/dl Albumin/Globulin Ratio 1.1 (0.9-2) SARS-CoV-2 (PCR) (Negative) Influenza Type A (PCR) (Neg) Influenza Type B (PCR) (Neg) RSV (RT-PCR) (Neg) 11/09/22 11/09/22 11/09/22 Range/Units 13:45 13:45 14:10 WBC (4.8-10.8) K/ul RBC (4.63-6.08) M/uL Hgb (14.0-18.0) g/dl Hct (40.1-51.0) % MCV (80.0-100.0) fL MCH (25.0-34.0) pg MCHC (32.0-36.0) g/dL RDW Std Deviation (36.4-46.3) fL RDW Coeff of Doris (11.5-14.5) % Plt Count (130-400) K/uL MPV (9.4-12.4) fL Immature Gran % (Auto) % Neut % (Auto) % Lymph % (Auto) % [place] % (Auto) % Eos % (Auto) % Baso % (Auto) % Neut # (Auto) (1.4-6.5) K/uL Lymph # (Auto) (1.2-3.4) K/uL [place] # (Auto) (0.24-0.82) K/uL Eos # (Auto) (0-0.50) K/uL Baso # (Auto) (0-0.2) K/uL Immature Gran # (Auto) (0.00-0.02) K/uL PT (9.0-12.0) Seconds INR (0.9-1.1) APTT (21.0-31.0) Seconds PTT Ratio VBG pH 7.43 H (7.36-7.41) VBG pCO2 47 (38-50) mmHg VBG pO2 28 mmHg VBG HCO3 31 mmol/L VBG O2 Saturation < 60.0 % VBG Base Excess 5.8 mEq/L Sodium (136-145) mmol/L Potassium (3.5-5.1) mmol/L Chloride (98-107) mmol/L Carbon Dioxide (21-32) mmol/L Anion Gap (3-11) BUN (6-23) mg/dl Creatinine (0.6-1.4) mg/dl Est Cr Clr Drug Dosing ml/min Est GFR ( Amer) ml/min Est GFR (Non-Af Amer) ml/min BUN/Creatinine Ratio (10-20) Glucose (70-99(Fasting)) mg/dl Calcium (8.5-10.1) mg/dl Magnesium (1.7-2.4) mg/dl Total Bilirubin (0.2-1.0) mg/dl AST (13-39) U/L ALT (7-52) U/L Alkaline Phosphatase (34-104) U/L Troponin I High Sens (0-20) pg/ml B-Natriuretic Peptide 721 H (0-100) pg/ml Total Protein (6.0-8.3) gm/dl Albumin (3.4-5.0) gm/dl Globulin (2.5-4.0) gm/dl Albumin/Globulin Ratio (0.9-2) SARS-CoV-2 (PCR) NEGATIVE (Negative) Influenza Type A (PCR) Negative (Neg) Influenza Type B (PCR) Negative (Neg) RSV (RT-PCR) Negative (Neg) 11/09/22 Range/Units 15:37 WBC (4.8-10.8) K/ul RBC (4.63-6.08) M/uL Hgb (14.0-18.0) g/dl Hct (40.1-51.0) % MCV (80.0-100.0) fL MCH (25.0-34.0) pg MCHC (32.0-36.0) g/dL RDW Std Deviation (36.4-46.3) fL RDW Coeff of Doris (11.5-14.5) % Plt Count (130-400) K/uL MPV (9.4-12.4) fL Immature Gran % (Auto) % Neut % (Auto) % Lymph % (Auto) % [place] % (Auto) % Eos % (Auto) % Baso % (Auto) % Neut # (Auto) (1.4-6.5) K/uL Lymph # (Auto) (1.2-3.4) K/uL [place] # (Auto) (0.24-0.82) K/uL Eos # (Auto) (0-0.50) K/uL Baso # (Auto) (0-0.2) K/uL Immature Gran # (Auto) (0.00-0.02) K/uL PT (9.0-12.0) Seconds INR (0.9-1.1) APTT (21.0-31.0) Seconds PTT Ratio VBG pH (7.36-7.41) VBG pCO2 (38-50) mmHg VBG pO2 mmHg VBG HCO3 mmol/L VBG O2 Saturation % VBG Base Excess mEq/L Sodium (136-145) mmol/L Potassium (3.5-5.1) mmol/L Chloride (98-107) mmol/L Carbon Dioxide (21-32) mmol/L Anion Gap (3-11) BUN (6-23) mg/dl Creatinine (0.6-1.4) mg/dl Est Cr Clr Drug Dosing ml/min Est GFR ( Amer) ml/min Est GFR (Non-Af Amer) ml/min BUN/Creatinine Ratio (10-20) Glucose (70-99(Fasting)) mg/dl Calcium (8.5-10.1) mg/dl Magnesium (1.7-2.4) mg/dl Total Bilirubin (0.2-1.0) mg/dl AST (13-39) U/L ALT (7-52) U/L Alkaline Phosphatase (34-104) U/L Troponin I High Sens 2572.8 H* D (0-20) pg/ml B-Natriuretic Peptide (0-100) pg/ml Total Protein (6.0-8.3) gm/dl Albumin (3.4-5.0) gm/dl Globulin (2.5-4.0) gm/dl Albumin/Globulin Ratio (0.9-2) SARS-CoV-2 (PCR) (Negative) Influenza Type A (PCR) (Neg) Influenza Type B (PCR) (Neg) RSV (RT-PCR) (Neg) Administered Medications Heparin Sodium/Dextrose (Heparin Sodium/Dextrose) 25,000 units in 500 mls @ 0.02 mls/hr IV .Q24H JOO; Protocol Stop: 12/09/22 14:14 Last Admin: 11/09/22 14:16 Dose: 1,650 units/hr, 33 mls/hr Documented By: AM Co-signed By: MICHEAL Discontinued Medications Aspirin (Aspirin Chew 324 Mg) 324 mg PO NOW STA Stop: 11/09/22 13:54 Last Admin: 11/09/22 14:08 Dose: 324 mg Documented By: AM Furosemide (Furosemide 40 Mg/4 Ml Vial) 40 mg IV ONE ONE Stop: 11/09/22 13:53 Last Admin: 11/09/22 14:09 Dose: 40 mg Documented By: AM Heparin Sodium/Dextrose (Heparin Iv Adult Wt-Based Standard *No* Bolus Protocol) 1 each IV ONE ONE; Protocol Stop: 11/09/22 13:53 Last Admin: 11/09/22 14:24 Dose: Not Given Documented By: AM Imaging Data Radiologist's Impression: Chest X-Ray 11/09/22 13:05 XR chest 1V portable CLINICAL HISTORY: Dyspnea TECHNIQUE: Single frontal radiograph of the chest was obtained. Comparison: Comparison is made to chest radiograph 04/05/2021 FINDINGS: No lines and tubes are seen. Cardiomegaly is noted. There is prominence and cephalization of the vasculature with Braulio B lines seen. A few perihilar airspace opacities are seen. No evidence of pleural effusion or pneumothorax. IMPRESSION: 1. Cardiomegaly and moderate pulmonary edema. 2. Perihilar airspace opacities may represent alveolar edema, however atelectasis, aspiration, and/or pneumonia cannot be excluded. ACT 112: Negative or not required by law. Electronically signed by: Joe Hemphill M.D. 11/09/2022 1:24 PM Discharge Plan Visit Data Chief Complaint: Shortness of Breath/Dyspnea Stated Complaint: SOB ED Provider: Christopher Jj Discharge Problem: Acute non-ST elevation myocardial infarction (NSTEMI), Pulmonary edema, RAUSCH (dyspnea on exertion) Patient Disposition: Being Evaluated by Hospitalist Forms Stand Alone Forms: My [facility] [address] Prescriptions Prescriptions: No Action (DME) pen needle, diabetic [BD Ultra-Fine Mini Pen Needle] 31 gauge x 3/16" needle See Dose Instructions .ROUTE .MEDSUPPLY Qty: 200 3RF Dose Instruction: As directed Rx Instructions: for use 2 times daily Trulicity 1.5 mg/0.5 mL pen injector 1.5 mg SQ WEEKLY Qty: 6 3RF Rx Instructions: takes on friday insulin glargine [Lantus Solostar U-100 Insulin] 100 unit/mL (3 mL) insulin pen 20 unit subcut BID Qty: 15 5RF (DME) OneTouch Verio test strips Strip See Rx Instructions .ROUTE .MEDSUPPLY Qty: 10 Rx Instructions: Test blood sugar two times daily atorvastatin 20 mg tablet 20 mg PO QPM Qty: 90 3RF losartan 100 mg tablet 100 mg PO DAILY Qty: 90 3RF cholecalciferol (vitamin D3) 1,250 mcg (50,000 unit) capsule 1,250 mcg PO .COMPLEX Qty: 12 3RF Rx Instructions: 1,250 mcg PO per week; Takes on fri (DME) FreeStyle [place] 14 Day Sensor Kit See Rx Instructions miscellaneous .MEDSUPPLY Qty: 2 5RF Rx Instructions: As directed Primatine Mist 2 puff inhalation DIRECTED PRN (Reason: Shortness Of Breath Or Wheezing) Referrals Referrals: Kristin Nelson CRNP [Primary Care Provider] -
[2022-11-09 13:17] LABS: Basophils # (auto) 0.04 K/uL (0-0.2); Basophils % (auto) 0.4 %; Eosinophils # (auto) 0.09 K/uL (0-0.50); Hematocrit (blood only) 44.7 % (40.1-51.0); Hemoglobin 15.4 g/dl (14.0-18.0); Immature Granulocytes # (auto) 0.04 K/uL (0.00-0.02); Immature Granulocytes % (auto) 0.4 %; Lymphocytes # (auto) 2.01 K/uL (1.2-3.4); Lymphocytes % (auto) 21.8 %; Mean Corpuscular Hemoglobin 32.2 pg (25.0-34.0); Mean Corpuscular Hgb Conc 34.5 g/dL (32.0-36.0); Mean Corpuscular Volume 93.5 fL (80.0-100.0); Mean Platelet Volume 9.3 fL (9.4-12.4); Monocytes # (auto) 0.53 K/uL (0.24-0.82); Monocytes % (auto) 5.7 %; Neutrophils # (auto) 6.53 K/uL (1.4-6.5); Neutrophils % (auto) 70.7 %; Platelet Count 455 K/uL (130-400); RDW Coefficient of Variation 12.7 % (11.5-14.5); RDW Standard Deviation 43.8 fL (36.4-46.3); Red Blood Count 4.78 M/uL (4.63-6.08); White Blood Count 9.24 K/ul (4.8-10.8)
--- NOTE | 2022-11-09 13:26 | XRay Report ---
XR chest 1V portable CLINICAL HISTORY: Dyspnea TECHNIQUE: Single frontal radiograph of the chest was obtained. Comparison: Comparison is made to chest radiograph 04/05/2021 FINDINGS: No lines and tubes are seen. Cardiomegaly is noted. There is prominence and cephalization of the vasc ulature with Braulio B lines seen. A few perihilar airspace opacities are seen. No evidence of pleural effusion or pneumothorax. IMPRESSION: 1. Cardiomegaly and moderate pulmonary edema. 2. Perihilar airspace opacities may represent alveolar edema, however atelectasis, aspiration, and/o r pneumonia cannot be excluded. ACT 112: Negative or not required by law. Electronically signed by: Joe Hemphill M.D. 11/09/2022 1:24 PM
[2022-11-09 13:38] LABS: INR 1.1 (0.9-1.1); Partial Thromboplastin Time 26.9 Seconds (21.0-31.0); Prothrombin Time 11.7 Seconds (9.0-12.0)
[2022-11-09 13:42] LABS: Albumin Globulin Ratio 1.1 (0.9-2); Albumin Level 3.9 gm/dl (3.4-5.0); BUN Creatinine Ratio 11.7 (10-20); Bilirubin,Total 0.5 mg/dl (0.2-1.0); Creatinine Clr Calc Pharmacy 88.2 ml/min; Est GFR (African American) 74.1 ml/min; Est GFR (Non-African American) 63.9 ml/min; Globulin 3.6 gm/dl (2.5-4.0); Magnesium 1.9 mg/dl (1.7-2.4); Potassium 4.5 mmol/L (3.5-5.1); Total Protein 7.5 gm/dl (6.0-8.3)
[2022-11-09] MEDS ORDERED: FUROSEMIDE 40 MG/4 ML VIAL IV ONE ×2 (13:52→19:00)
[2022-11-09] MEDS ORDERED: Heparin IV Adult Wt-Based Standard *NO* Bolus Protocol IV ONE (13:52)
[2022-11-09] MEDS ORDERED: ASPIRIN CHEW 324 MG PO STA (13:53)
--- NOTE | 2022-11-09 14:15 | History & Physical Report ---
Date of Service November 09, 2022 Assessment & Plan (1) NSTEMI (non-ST elevated myocardial infarction): Plan: Patient presents with an NSTEMI which was complicated by pulmonary edema and congestive heart failure. Troponin is elevated but the patient does not have a exact precipitation of severe symptoms. The symptoms seem to be progressive over the last few days to weeks. 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 He typically follows with Dr. Harrell, His creatinine is stable at this time he will remain on his ARB (3) Hypertension: Plan: Typically on losartan blood pressure is up in the emergency department he will be initiated on metoprolol with as needed metoprolol (4) Dyslipidemia: Plan: Lipitor be increased to 40 have a fasting lipid in the morning (5) Diabetes type 2, controlled: Plan: Patient is on basal bolus insulin at home with a Trulicity also. The Trulicity is held he will be on basal bolus insulin. He currently is n.p.o. but if his second troponin is not increased likely would feel that he would be on a diabetic diet. Patient states he is not been compliant with his diabetes of late (6) Tobacco abuse: Plan: Patient is a current 1 pack a day smoker says he is going to stop smoking now he was offered nicotine patch does not wish for it. He was counseled on smoking cessation. He will be offered lorazepam instead as needed History of Present Illness Primary Care Provider: TIMBO Hernandez 52-year-old male who has a history of diabetes as well as tobacco use who presented to the emergency department for an evaluation of difficulty breathing. The patient states he has had ongoing symptoms for at least the last few weeks. He stated that his symptoms initially woke him from sleep where he had tightness in his chest nausea and vomiting with diarrhea he then had abdominal discomfort which he described as indigestion or gas pains. Since that time exertionally he gets very short of breath he feels this chest tightness the last for 2 to 3 minutes resolves with rest he is not in any other associated symptoms until today when they were associated with diaphoresis he has had no left arm or neck radiation. In the ER he looks uncomfortable he is easily recognizably tachypneic He denies infectious symptoms, hemoptysis, or fever. He describes a burning/tightening sensation across his anterior chest. He states that this pain is not constant and are worsened with any exertion. Patient symptoms improved with oxygen patient has an elevated troponin of 1400 and has a nonacute but changed EKG from baseline and congestive heart failure changes seen on chest x-ray. Concern for NSTEMI plus minus unstable angina. We will trend troponins if worsens will recontact cardiology. Emergency physician spoke with Dr. Murphy who reportedly felt this patient was not meeting criteria for heart alert Allergies Allergy/AdvReac Type Severity Reaction Status Date / Time No Known Allergies Allergy Verified 11/09/22 15:25 Home Medications Medication Instructions Recorded Confirmed Type BD Ultra-Fine Mini Pen Needle 31 #200 ea 06/30/19 10/03/22 Rx gauge x 3/16" (pen needle, diabetic) blood sugar diagnostic (OneTouch #10 ea 08/13/21 10/03/22 History Verio test strips) atorvastatin 20 mg tablet 20 mg PO QPM #90 tabs 09/14/21 11/09/22 Rx Trulicity 1.5 mg/0.5 mL 1.5 mg (0.5 mL) subcut WEEKLY #6 mL 02/26/22 11/09/22 Rx subcutaneous pen injector (dulaglutide) flash glucose sensor (FreeStyle #2 ea 03/15/22 10/03/22 Rx Mariposa 14 Day Sensor kit) insulin glargine 100 unit/mL (3 20 unit (0.2 mL) subcut BID #15 mL 06/04/22 11/09/22 Rx mL) subcutaneous pen (Lantus Solostar U-100 Insulin) cholecalciferol (vitamin D3) 1,250 1,250 mcg PO .COMPLEX #12 caps 10/03/22 11/09/22 Rx mcg (50,000 unit) capsule losartan 100 mg tablet 100 mg PO DAILY #90 tabs 10/03/22 11/09/22 Rx Primatine Mist 2 puff inhalation DIRECTED PRN 11/09/22 11/09/22 History Shortness Of Breath Or Wheezing Past Med/Surg History Medical History MARCO (acute kidney injury) Chronic kidney disease, stage 3a Clear cell carcinoma of kidney Dyslipidemia Hypertension Overweight Quadriceps tendon rupture Solitary left kidney Surgical History H/O kidney removal History of repair of ACL Hx of adenoidectomy Family History Father Lung cancer Brain cancer Mother Breast cancer Diabetes Other No known problems Social History Smoking Status: Current every day smoker Tobacco Type: Cigarettes Cigarettes Per Day: 1 PPD; Second Hand Exposure: Yes; Do You Dip or Chew Tobacco: No; Tobacco Cessation Education Requested by Patient: No Hx Alcohol Use: Yes Alcohol type: beer Hx Substance Use: No Preferred Language: Surinamese Communication Ability: Effective Res Counselor Required: No Beliefs That Will Affect Care: None marital status: Single Current Living Situation: Alone Other Information That Helps Us Care for You: No Feels Safe at Home: Yes Safety Concerns: Feels Safe At This Time Assistive Devices: Oxygen - Continuous Review of Systems Review of Systems: Moderate distress and fatigue no headache, no visual changes no speech or swallowing issues Tightness/chest pain, no sensation of palpitations Exertional shortness of breath, no cough or wheezes no abdominal pain, has had intermittent nausea& vomiting, no dysuria, hematuria or frequency no focal joint pain or swelling no back pain, CVA tenderness or radicular pain no bruising, bleeding or rashes no focal signs of weakness or numbness or altered sensation no complaints of anxiety or depression.. Physical Exam Physical Exam: The patient appeared well nourished and normally developed. He is obviously uncomfortable and tachypneic Vital signs as documented. Head exam is normocephalic atraumatic Neck is with 2 JVD, thyromegaly, or carotid bruits. Lungs are bilateral rales mostly at the base clearing with the apex Cardiac exam, Rhythm is regular.. No murmurs, rubs or gallops. Abdominal exam reveals normal bowel sounds, soft non tender, no masses Extremities are nonedematous and both pedal pulses are present Neurologic exam is alert and oriented, no focal loss of strength or sensation Skin is without bruises or rashes Psychologically is without concerns for anxiety or depression.. Results & Data Results & Data ([facility]) Vital Signs (Past 12 Hours) Vital Signs Temp Pulse Resp BP Pulse Ox O2 Del Method O2 Flow Rate 11/09/22 13:30 109 H 24 144/108 H 96 3 11/09/22 13:05 Room Air 11/09/22 13:00 116 H 24 156/107 H 95 Nasal Cannula 3 11/09/22 12:56 117 H 23 144/102 H 92 Room Air 11/09/22 12:29 97.0 F L 128 H 18 124/88 96 Room Air Diagnostic Findings Chest X-Ray 11/09/22 13:05 XR chest 1V portable CLINICAL HISTORY: Dyspnea TECHNIQUE: Single frontal radiograph of the chest was obtained. Comparison: Comparison is made to chest radiograph 04/05/2021 FINDINGS: No lines and tubes are seen. Cardiomegaly is noted. There is prominence and cephalization of the vasculature with Braulio B lines seen. A few perihilar airspace opacities are seen. No evidence of pleural effusion or pneumothorax. IMPRESSION: 1. Cardiomegaly and moderate pulmonary edema. 2. Perihilar airspace opacities may represent alveolar edema, however atelectasis, aspiration, and/or pneumonia cannot be excluded. ACT 112: Negative or not required by law. Electronically signed by: Joe Hemphill M.D. 11/09/2022 1:24 PM ECG Additional Comments: Sinus rhythm with nonspecific lateral ST changes appearing to resemble left bundle but not meet left bundle criteria Code Status & VTE Plan VTE Prophylaxis Plan VTE Prophylaxis will be ordered: Yes PG Care Time/CCT Total # of Minutes Spent Total Time Spent with Patient: Total time spent is greater than 50% in coordination of care (as documented) at patient's floor/unit and/or counseling patient: Coding Level of Care Code 36917 Initial Inpt Care Lvl 3 Diagnoses NSTEMI (non-ST elevated myocardial infarction) I21.4 Chronic kidney disease, stage 3a N18.31 Hypertension I10 Dyslipidemia E78.5 Diabetes type 2, controlled E11.9 Tobacco abuse Z72.0
[2022-11-09] MEDS: HEPARIN SODIUM/DEXTROSE 25,000 UNITS/500 ML BAG IV SCH (14:16)
[2022-11-09 14:19] LABS: Base Excess VBG 5.8 mEq/L; HCO3 VBG 31 mmol/L; Oxygen Saturation VBG < 60.0 %; PCO2 VBG 47 mmHg (38-50); PO2 VBG 28 mmHg; pH VBG 7.43 (7.36-7.41)
[2022-11-09 14:36] LABS: Influenza A virus by PCR Negative (Neg); Influenza B virus by PCR Negative (Neg); RSV by PCR Negative (Neg); SARS CoV2 RNA(COVID-19) Ceph NEGATIVE (Negative)
[2022-11-09] MEDS ORDERED: LORazepam 2 MG/1 ML VIAL IV PRN (17:52)
[2022-11-09] MEDS ORDERED: DEXTROSE 50% 50 ML SYRINGE IV PRN (17:52)
[2022-11-09] MEDS ORDERED: LORazepam 0.5 MG TAB PO PRN (17:52)
[2022-11-09] MEDS ORDERED: GLUCOSE 10 TAB/TUBE PO PRN (17:52)
[2022-11-09] MEDS ORDERED: NITROGLYCERIN SL 0.4 MG/TAB TAB SL PRN (17:52)
[2022-11-09] MEDS ORDERED: GLUCAGON FOR INJ 1 MG VIAL SQ PRN (17:52)
[2022-11-09] MEDS ORDERED: MoRPHine SULFATE 2 MG/ML CARP IV PRN ×2 (17:52→19:20)
[2022-11-09] MEDS ORDERED: ONDANSETRON INJ 2 MG/ML 2 ML VIAL IV PRN (17:52)
[2022-11-09] MEDS ORDERED: HEPARIN SODIUM/DEXTROSE 25,000 UNITS/500 ML BAG IV SCH (17:52)
[2022-11-09] MEDS ORDERED: ALUMINUM/MAGNESIUM SUSP 30 ML UDC PO PRN (17:52)
[2022-11-09] MEDS ORDERED: GLUCOSE 40% GEL 15 GM TUBE PO PRN (17:52)
[2022-11-09] MEDS ORDERED: ACETAMINOPHEN 325 MG TAB PO PRN (17:52)
[2022-11-09] MEDS ORDERED: CARBOHYDRATES FOR HYPOGLYCEMIA PO PRN (17:52)
[2022-11-09] MEDS ORDERED: METOPROLOL TARTRATE 1 MG/ML VIAL IV PRN (17:52)
[2022-11-09] MEDS ORDERED: INSULIN ASPART PER UNIT ONE (18:21)
[2022-11-09] MEDS ORDERED: METOPROLOL TARTRATE 25 MG TAB PO ONE (19:25)
[2022-11-09] MEDS: Heparin IV Adult Wt-Based Standard *NO* Bolus Protocol IV SCH ×2 (19:57→19:58)
[2022-11-09 20:58] LABS: Partial Thromboplastin Ratio 1.3; Partial Thromboplastin Time 34.8 Seconds (21.0-31.0)
[2022-11-09] MEDS ORDERED: ATORVASTATIN 40 MG TAB PO SCH (21:00)
[2022-11-09] MEDS ORDERED: Nursing to Pharmacy Communication SCH (21:15)
[2022-11-09] MEDS: INSULIN ASPART PER UNIT SC SCH ×2 (21:22→21:39)
[2022-11-09] MEDS: LANTUS PER UNIT CHARGE SQ SCH (21:22)
[2022-11-09] MEDS: METOPROLOL TARTRATE 25 MG TAB PO SCH (21:29)
[2022-11-09] MEDS ORDERED: HEPARIN IV BOLUS 4,000 UNITS in SYRINGE 0 ML IV ONE (22:00)
[2022-11-10] MEDS: HEPARIN SODIUM/DEXTROSE 25,000 UNITS/500 ML BAG IV SCH ×2 (03:06→15:54)
[2022-11-10 03:25] LABS: Hematocrit (blood only) 43.8 % (40.1-51.0); Hemoglobin 15.2 g/dl (14.0-18.0); Mean Corpuscular Hemoglobin 32.7 pg (25.0-34.0); Mean Corpuscular Hgb Conc 34.7 g/dL (32.0-36.0); Mean Corpuscular Volume 94.2 fL (80.0-100.0); Platelet Count 411 K/uL (130-400); RDW Standard Deviation 44.5 fL (36.4-46.3); Red Blood Count 4.65 M/uL (4.63-6.08); White Blood Count 9.75 K/ul (4.8-10.8)
[2022-11-10 03:26] LABS: Appearance Urine Clear (Clear); Bilirubin Urine Negative (Negative); Blood Urine Negative (Negative); Color Urine Yellow; Glucose Urine UA Negative (Negative); Ketones Urine Negative (Negative); Leukocyte Esterase Urine Negative (Negative); Nitrite Urine Negative (Negative); Protein Urine Negative (Negative); Urobilinogen Urine Negative (Negative)
[2022-11-10 03:38] LABS: Partial Thromboplastin Ratio 1.5
[2022-11-10 03:45] LABS: BUN Creatinine Ratio 12.6 (10-20); Calcium 9.1 mg/dl (8.5-10.1); Creatinine Clr Calc Pharmacy 87.6 ml/min; Est GFR (African American) 74.8 ml/min; Est GFR (Non-African American) 64.5 ml/min; Magnesium 1.9 mg/dl (1.7-2.4)
[2022-11-10] MEDS: METOPROLOL TARTRATE 25 MG TAB PO SCH ×2 (08:31→21:18)
[2022-11-10] MEDS: ASPIRIN 325 MG ECTAB PO SCH (08:32)
[2022-11-10] MEDS: INSULIN ASPART PER UNIT SC SCH ×4 (08:34→20:36)
[2022-11-10] MEDS: LANTUS PER UNIT CHARGE SQ SCH ×2 (08:35→21:15)
[2022-11-10] MEDS ORDERED: METOPROLOL TARTRATE 25 MG TAB PO SCH (09:00)
[2022-11-10] MEDS ORDERED: ASPIRIN 81 MG ECTAB PO SCH (09:00)
[2022-11-10] MEDS ORDERED: LOSARTAN POTASSIUM 50 MG TAB PO SCH (09:00)
--- NOTE | 2022-11-10 10:20 | Electrocardiogram Report ---
Test Reason : Blood Pressure : / mmHG Vent. Rate : 122 BPM Atrial Rate : 122 BPM P-R Int : 140 ms QRS Dur : 096 ms QT Int : 318 ms P-R-T Axes : 066 086 -32 degrees QTc Int : 453 ms Poor data quality, interpretation may be adversely affected Sinus tachycardia Left atrial enlargement Anterior infarct , age undetermined Abnormal ECG When compared with ECG of 03-MAY-2020 10:43, Anterior infarct is now Present ST now depressed in Lateral leads T wave inversion now evident in Inferior leads Confirmed by Fabian Gutierrez ([id number]) on 11/10/2022 10:20:02 AM Referred By: REFERRED SELF Confirmed By:Fabian Gutierrez
[2022-11-10 10:21] LABS: Partial Thromboplastin Ratio 1.6; Partial Thromboplastin Time 43.7 Seconds (21.0-31.0)
--- NOTE | 2022-11-10 10:41 | Electrocardiogram Report ---
Test Reason : Blood Pressure : / mmHG Vent. Rate : 092 BPM Atrial Rate : 092 BPM P-R Int : 140 ms QRS Dur : 108 ms QT Int : 410 ms P-R-T Axes : 072 084 081 degrees QTc Int : 507 ms Normal sinus rhythm Left atrial enlargement Anterior infarct (cited on or before 09-NOV-2022) Flat ST segments in the lateral leads Prolonged QT Abnormal ECG When compared with ECG of 09-NOV-2022 18:25, (unconfirmed) Premature ventricular complexes are no longer Present Confirmed by Fabian Gutierrez ([id number]) on 11/10/2022 10:40:56 AM Referred By: REFERRED SELF Confirmed By:Fabian Gutierrez
--- NOTE | 2022-11-10 10:43 | Electrocardiogram Report ---
Test Reason : Blood Pressure : / mmHG Vent. Rate : 100 BPM Atrial Rate : 100 BPM P-R Int : 148 ms QRS Dur : 110 ms QT Int : 388 ms P-R-T Axes : 070 073 -68 degrees QTc Int : 500 ms Sinus rhythm with occasional Premature ventricular complexes Left atrial enlargement Possible Inferior infarct , age undetermined Anteroseptal infarct (cited on or before 09-NOV-2022) Nonspecific ST abnormality Prolonged QT Abnormal ECG When compared with ECG of 09-NOV-2022 12:43, (unconfirmed) Premature ventricular complexes are now Present Borderline criteria for Inferior infarct are now Present Confirmed by Fabian Gutierrez ([id number]) on 11/10/2022 10:43:06 AM Referred By: REFERRED SELF Confirmed By:Fabian Gutierrez
--- NOTE | 2022-11-10 12:00 | Cardiology Consultation ---
Date of Consultation November 10, 2022 History of Present Illness Reason for Consultation: Non-ST ovation myocardial infarction, anterior myocardial infarction likely October 24, 2022, shortness of breath Attending Physician: Jd Boswell MD History of Present Illness This a very pleasant 52-year-old gentleman who notes right around October 24 he felt very poorly had GI distress was nauseous could not eat he had some very subtle chest tightness. This went on for a number of days. He also noted shortness of breath with this episode and just did not feel well. Over the last 2-1/2 weeks he has had waxing and waning symptoms where occasionally he would have some mild discomfort in his chest but most of the time he was noticing shortness of breath and dyspnea with activity. 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 Yesterday the symptoms became progressively worse such that just walking to the car to come to the emergency room he was short of breath. His significant other noted that with any kind of activity would take him 15 to 20 minutes to recover from a respiratory standpoint. He is unaware of any palpitations or fluttering or feeling his heart racing. He denies any orthostatic symptoms. He has any lightheadedness dizziness presyncope syncope. He denies any bleeding bruising dark stools or black stools. There are no plans for upcoming surgery or tooth extraction or colonoscopy. This morning he is feeling better his shortness of breath is improved. He notes walking to the bathroom he was not dyspneic. He denies any chest tightness or chest pressure this morning. He denies any lightheadedness or dizziness. He notes overall he is feeling much better. His family notes that his color has improved as he was grayish yesterday before coming to the hospital. The rest of complete her systems otherwise negative Allergies Allergy/AdvReac Type Severity Reaction Status Date / Time No Known Allergies Allergy Verified 11/09/22 15:25 Home Medications Medication Instructions Recorded Confirmed Type BD Ultra-Fine Mini Pen Needle 31 #200 ea 06/30/19 10/03/22 Rx gauge x 3/16" (pen needle, diabetic) blood sugar diagnostic (OneTouch #10 ea 08/13/21 10/03/22 History Verio test strips) atorvastatin 20 mg tablet 20 mg PO QPM #90 tabs 09/14/21 11/09/22 Rx Trulicity 1.5 mg/0.5 mL 1.5 mg (0.5 mL) subcut WEEKLY #6 mL 02/26/22 11/09/22 Rx subcutaneous pen injector (dulaglutide) flash glucose sensor (FreeStyle #2 ea 03/15/22 10/03/22 Rx Mariposa 14 Day Sensor kit) insulin glargine 100 unit/mL (3 20 unit (0.2 mL) subcut BID #15 mL 06/04/22 11/09/22 Rx mL) subcutaneous pen (Lantus Solostar U-100 Insulin) cholecalciferol (vitamin D3) 1,250 1,250 mcg PO .COMPLEX #12 caps 10/03/22 11/09/22 Rx mcg (50,000 unit) capsule losartan 100 mg tablet 100 mg PO DAILY #90 tabs 10/03/22 11/09/22 Rx Primatine Mist 2 puff inhalation DIRECTED PRN 11/09/22 11/09/22 History Shortness Of Breath Or Wheezing Patient History Medical History MARCO (acute kidney injury) Chronic kidney disease, stage 3a Clear cell carcinoma of kidney Dyslipidemia Hypertension Overweight Quadriceps tendon rupture Solitary left kidney Surgical History H/O kidney removal History of repair of ACL Hx of adenoidectomy Family History Father Lung cancer Brain cancer Mother Breast cancer Diabetes Other No known problems Social History Smoking Status: Current every day smoker Tobacco Type: Cigarettes Cigarettes Per Day: 1 PPD; Second Hand Exposure: Yes; Do You Dip or Chew Tobacco: No; Tobacco Cessation Education Requested by Patient: No Hx Alcohol Use: Yes Alcohol type: beer Hx Substance Use: No Preferred Language: Grenadian Communication Ability: Effective Pie Chef Required: No Beliefs That Will Affect Care: None marital status: Single Current Living Situation: Alone Other Information That Helps Us Care for You: No Feels Safe at Home: Yes Safety Concerns: Feels Safe At This Time Assistive Devices: Oxygen - Continuous Results & Data ([facility]) Vital Signs (Past 12 Hours) Vital Signs Temp Pulse Pulse Resp BP Pulse Ox O2 Del Method 11/10/22 11:29 36.8 C 81 18 108/74 91 Room Air 11/10/22 09:16 82 11/10/22 09:09 Nasal Cannula 11/10/22 07:19 36.6 C 93 H 18 112/74 90 Room Air 11/10/22 02:57 36.7 C 100 H 18 116/80 91 Room Air 11/10/22 00:06 98 H O2 Flow Rate 11/10/22 11:29 11/10/22 09:16 11/10/22 09:09 2 11/10/22 07:19 11/10/22 02:57 11/10/22 00:06 He is awake alert and oriented x3 is in no acute distress HEENT: Mildly reduced carotid upstrokes no evidence of carotid bruits Lungs: Globally decreased breath sounds but no rales rhonchi or wheezing Heart: Regular rate and rhythm no appreciable murmurs rubs or gallops Abdomen: Soft nontender nondistended positive bowel sounds no abdominal bruits Extremities: No clubbing cyanosis or edema Psychiatric: His affect appeared appropriate Neurologic: He is awake alert and oriented x3 and answers questions appropriately EKG sinus tachycardia with Q waves V1 to V4 consistent with anterior septal ME age-indeterminate; interestingly he does have any T wave inversions in the same precordial leads which would suggest his event occurred multiple weeks ago. When this is compared to a prior EKG of 2019 the anterior septal Q waves are new Laboratory studies were reviewed IMPRESSIONS: 1. Non-ST elevation myocardial infarction 2. Acute systolic heart failure 3. Anterior septal infarct likely early October 2022 4. Single kidney status post nephrectomy with a baseline creatinine of 1.3 5. History of tobacco abuse smoking 1 to 1-1/4 packs/day 6. Diabetes mellitus type 2 7. Family history of abdominal aortic aneurysms and intracerebral aneurysms He Is currently stable. His history is most consistent with an infarct that occurred on October 24. His troponin is trending down. His troponin elevation is most consistent with a small to moderate-sized heart attack. His echo has been completed but not downloaded into the system to assess his ejection fraction and extent of his coronary disease. I do wonder if he does not have both LAD and RCA disease. And the RCA was providing collaterals to the LAD territory and now is compromised. If you look at his EKGs got some subtle ST changes in the inferior leads. The other possibility is he does have severe LAD disease and then extended his infarct o tess the last number of days. It does sound like his symptoms were waxing and waning and it also raises the question as to whether he was having periods where he was completely thrombosing his LAD and then recannulizing it on his own. As I discussed him he needs a cardiac catheterization. We will plan for this tomorrow as long as he remains stable. We discussed the risk and benefits of cardiac catheterization risk including but not limited to bleeding or infection at the puncture site, damage to his radial or femoral artery, risk of contrast- induced nephropathy especially in light of his diabetes and single kidney, 1 in the thousand risk of heart attack stroke or dying with the procedure were discussed. He understands the risks and wishes to proceed We will make some medication changes. He will remain on aspirin and Toprol-XL. I we will increase his atorvastatin to 80 mg daily. We will stop his losartan and will add Entresto low-dose twice daily with the intent of up titration over the next number of weeks. We will add Chantix 0.5 mg daily x3 days and then increase it to 0.5 mg twice daily x4 days until he gets to the maintenance dose of 1 mg twice daily. We discussed the be nefits of Chantix in detail we also discussed potential side effects including bad dreams, nightmares, and even suicidal ideation. I discussed with his family if he started to act oddly while on Chantix it should be immediately stopped. We will give him IV fluids prior to the catheterization to reduce the risk of contrast-induced nephropathy. He looks dry at this point and I would not give him any additional doses of diuretics. His insulin will need to be cut in half tonight and held in the morning prior to the procedure. Made a long discussion with regards to medical therapy in reducing his risk of cardiovascular events. We discussed the need to stop smoking and then aggressive control of his diabetes. He seemed open to both of these ideas. As an outpatient he will need an ultrasound to rule out an abdominal aortic aneurysm given his smoking history and his family history. There is a family history of cerebral aneurysms which will need to be followed up with his primary care provider. All this was discussed with the patient and the family at bedside.
[2022-11-10 18:18] LABS: Partial Thromboplastin Ratio 1.5; Partial Thromboplastin Time 41.9 Seconds (21.0-31.0)
--- NOTE | 2022-11-10 19:44 | Hospitalist Progress Note ---
Date of Service November 10, 2022 Assessment & Plan (1) NSTEMI (non-ST elevated myocardial infarction): Plan: Patient presents with an NSTEMI which was complicated by pulmonary edema and congestive heart failure. Troponin is elevated but the patient does not have a exact precipitation of severe symptoms. The symptoms seem to be progressive over the last few days to weeks. 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 He typically follows with Dr. Harrell, His creatinine is stable at this time he will remain on his ARB (3) Hypertension: Plan: Typically on losartan blood pressure is up in the emergency department he will be initiated on metoprolol with as needed metoprolol (4) Dyslipidemia: Plan: Lipitor be increased to 40 have a fasting lipid in the morning (5) Diabetes type 2, controlled: Plan: Patient is on basal bolus insulin at home with a Trulicity also. The Trulicity is held he will be on basal bolus insulin. He currently is n.p.o. but if his second troponin is not increased likely would feel that he would be on a diabetic diet. Patient states he is not been compliant with his diabetes of late (6) Tobacco abuse: Plan: Patient is a current 1 pack a day smoker says he is going to stop smoking now per admitting providerI did not discuss this with him for reasons mentioned above At admissionhe was counseled on smoking cessation. He will be offered lorazepam instead as needed Admission and Anticipated Discharge Date Admission Date: November 09, 2022 Subjective The patient was seen around 4 PM and was upset about being asked the history from another doctor. Review of systems is very limited for this reason. There is been no orthopnea but there has been PND in the last 2 to 3 days. Apparently in the index event happened on October 24 and he has had intermittent short of breath and his work is aware and aware Physical Exam Physical Exam: Irritable, cooperative in exam Head and neck no JVD Chest clear to auscultation CVS S1-S2 Extremities no edema BATCH ATTENDANT grossly intact Adequate insight and judgment Results & Data Results & Data ([facility]) Vital Signs (Past 12 Hours) Vital Signs Temp Pulse Pulse Resp BP Pulse Ox O2 Del Method 11/10/22 19:00 36.7 C 90 20 104/66 92 Room Air 11/10/22 15:56 89 11/10/22 15:45 37.0 C 18 103/67 89 L Room Air 11/10/22 11:29 36.8 C 81 18 108/74 91 Room Air 11/10/22 09:16 82 11/10/22 09:09 Nasal Cannula O2 Flow Rate 11/10/22 19:00 11/10/22 15:56 11/10/22 15:45 11/10/22 11:29 11/10/22 09:16 11/10/22 09:09 2 Laboratory Results 11/10/22 11/10/22 11/10/22 17:56 16:41 11:19 WBC RBC Hgb Hct MCV MCH MCHC RDW Std Deviation RDW Coeff of Doris Plt Count MPV APTT 41.9 H PTT Ratio 1.5 Sodium Potassium Chloride Carbon Dioxide Anion Gap BUN Creatinine Est Cr Clr Drug Dosing Est GFR ( Amer) Est GFR (Non-Af Amer) BUN/Creatinine Ratio Glucose POC Glucose 146 H 123 H Calcium Magnesium Troponin I High Sens Triglycerides Cholesterol LDL Cholesterol, Calc VLDL Cholesterol, Calc HDL Cholesterol Cholesterol/HDL Ratio Urine Color Urine Appearance Urine pH Ur Specific [place] Urine Protein Urine Glucose (UA) Urine Ketones Urine Blood Urine Nitrite Urine Bilirubin Urine Urobilinogen Ur Leukocyte Esterase 11/10/22 11/10/22 11/10/22 10:00 08:26 06:55 WBC RBC Hgb Hct MCV MCH MCHC RDW Std Deviation RDW Coeff of Doris Plt Count MPV APTT 43.7 H PTT Ratio 1.6 Sodium Potassium Chloride Carbon Dioxide Anion Gap BUN Creatinine Est Cr Clr Drug Dosing Est GFR ( Amer) Est GFR (Non-Af Amer) BUN/Creatinine Ratio Glucose POC Glucose 146 H Calcium Magnesium Troponin I High Sens 8498.8 H* Triglycerides Cholesterol LDL Cholesterol, Calc VLDL Cholesterol, Calc HDL Cholesterol Cholesterol/HDL Ratio Urine Color Urine Appearance Urine pH Ur Specific [place] Urine Protein Urine Glucose (UA) Urine Ketones Urine Blood Urine Nitrite Urine Bilirubin Urine Urobilinogen Ur Leukocyte Esterase 11/10/22 11/10/22 11/10/22 03:10 03:10 03:10 WBC 9.75 RBC 4.65 Hgb 15.2 Hct 43.8 MCV 94.2 MCH 32.7 MCHC 34.7 RDW Std Deviation 44.5 RDW Coeff of Doris 13.0 Plt Count 411 H MPV 9.0 L APTT 42.0 H PTT Ratio 1.5 Sodium 138 Potassium 4.0 Chloride 97 L Carbon Dioxide 31 Anion Gap 10 BUN 16 Creatinine 1.27 Est Cr Clr Drug Dosing 87.6 Est GFR ( Amer) 74.8 Est GFR (Non-Af Amer) 64.5 BUN/Creatinine Ratio 12.6 Glucose 163 H POC Glucose Calcium 9.1 Magnesium 1.9 Troponin I High Sens Triglycerides 157 H Cholesterol 224 H LDL Cholesterol, Calc 161 VLDL Cholesterol, Calc 31 H HDL Cholesterol 32 Cholesterol/HDL Ratio 7.0 H Urine Color Urine Appearance Urine pH Ur Specific [place] Urine Protein Urine Glucose (UA) Urine Ketones Urine Blood Urine Nitrite Urine Bilirubin Urine Urobilinogen Ur Leukocyte Esterase 11/10/22 11/09/22 11/09/22 03:03 23:24 20:25 WBC RBC Hgb Hct MCV MCH MCHC RDW Std Deviation RDW Coeff of Doris Plt Count MPV APTT 34.8 H PTT Ratio 1.3 Sodium Potassium Chloride Carbon Dioxide Anion Gap BUN Creatinine Est Cr Clr Drug Dosing Est GFR ( Amer) Est GFR (Non-Af Amer) BUN/Creatinine Ratio Glucose POC Glucose Calcium Magnesium Troponin I High Sens 30280.2 H* D Triglycerides Cholesterol LDL Cholesterol, Calc VLDL Cholesterol, Calc HDL Cholesterol Cholesterol/HDL Ratio Urine Color Yellow Urine Appearance Clear Urine pH 6.0 Ur Specific [place] 1.010 Urine Protein Negative Urine Glucose (UA) Negative Urine Ketones Negative Urine Blood Negative Urine Nitrite Negative Urine Bilirubin Negative Urine Urobilinogen Negative Ur Leukocyte Esterase Negative 11/09/22 20:24 WBC RBC Hgb Hct MCV MCH MCHC RDW Std Deviation RDW Coeff of Doris Plt Count MPV APTT PTT Ratio Sodium Potassium Chloride Carbon Dioxide Anion Gap BUN Creatinine Est Cr Clr Drug Dosing Est GFR ( Amer) Est GFR (Non-Af Amer) BUN/Creatinine Ratio Glucose POC Glucose 135 H Calcium Magnesium Troponin I High Sens Triglycerides Cholesterol LDL Cholesterol, Calc VLDL Cholesterol, Calc HDL Cholesterol Cholesterol/HDL Ratio Urine Color Urine Appearance Urine pH Ur Specific [place] Urine Protein Urine Glucose (UA) Urine Ketones Urine Blood Urine Nitrite Urine Bilirubin Urine Urobilinogen Ur Leukocyte Esterase Medications Administered Home Medications Medication Instructions Recorded Confirmed Last Taken BD Ultra-Fine Mini Pen Needle 31 #200 ea 06/30/19 10/03/22 Unknown gauge x 3/16" (pen needle, diabetic) blood sugar diagnostic (OneTouch #10 ea 08/13/21 10/03/22 Unknown Verio test strips) atorvastatin 20 mg tablet 20 mg PO QPM #90 tabs 09/14/21 11/09/22 Unknown Trulicity 1.5 mg/0.5 mL 1.5 mg (0.5 mL) subcut WEEKLY #6 mL 02/26/22 11/09/22 11/04/22 subcutaneous pen injector (dulaglutide) flash glucose sensor (FreeStyle #2 ea 03/15/22 10/03/22 Unknown Mariposa 14 Day Sensor kit) insulin glargine 100 unit/mL (3 20 unit (0.2 mL) subcut BID #15 mL 06/04/22 11/09/22 Unknown mL) subcutaneous pen (Lantus Solostar U-100 Insulin) cholecalciferol (vitamin D3) 1,250 1,250 mcg PO .COMPLEX #12 caps 10/03/22 11/09/22 11/04/22 mcg (50,000 unit) capsule losartan 100 mg tablet 100 mg PO DAILY #90 tabs 10/03/22 11/09/22 11/09/22 10:00 Primatine Mist 2 puff inhalation DIRECTED PRN 11/09/22 11/09/22 Unknown Shortness Of Breath Or Wheezing Active Medications Generic Name Dose Route Start Last Admin Trade Name Freq PRN Reason Stop Dose Admin Aspirin 325 mg 11/10/22 09:00 11/10/22 08:32 Aspirin 325 Mg Ectab PO 12/10/22 08:59 325 mg QAM JOO Administration Heparin Sodium/Dextrose 25,000 units in 500 mls @ 41 mls/hr 11/09/22 14:15 11/10/22 19:24 Heparin Sodium/Dextrose IV 12/09/22 14:14 2,150 units/hr .[id number] JOO 43 mls/hr Titration Protocol 2,050 UNITS/HR Insulin Aspart 0 units 11/09/22 17:52 11/10/22 17:00 Insulin Aspart Per Unit SC 12/09/22 17:51 8 units ACHS JOO Administration Insulin Glargine 20 units 11/09/22 21:00 11/10/22 08:35 Lantus Per Unit Charge SQ 12/09/22 20:59 20 units BID JOO Administration Metoprolol Tartrate 25 mg 11/09/22 21:00 11/10/22 08:31 Metoprolol Tartrate 25 Mg Tab PO 12/09/22 20:59 25 mg BID JOO Administration Miscellaneous 1 each 11/10/22 16:00 11/10/22 18:45 Chantix: Order Awaiting Action N/A 12/10/22 15:59 Not Given QS JOO PG Care Time/CCT Total # of Minutes Spent Total Time Spent with Patient: Total time spent is greater than 50% in coordination of care (as documented) at patient's floor/unit and/or counseling patient: Coding Level of Care Code 24169 Subseq Hosp Care Lvl 2 Diagnoses NSTEMI (non-ST elevated myocardial infarction) I21.4 Chronic kidney disease, stage 3a N18.31 Hypertension I10 Dyslipidemia E78.5 Diabetes type 2, controlled E11.9 Tobacco abuse Z72.0
[2022-11-10] MEDS ORDERED: ATORVASTATIN 40 MG TAB PO SCH (21:00)
[2022-11-10] MEDS: VALSARTAN/SACUBITRIL 26/24MG TAB PO SCH (21:19)
[2022-11-11 01:13] LABS: Hematocrit (blood only) 43.5 % (40.1-51.0); Hemoglobin 14.9 g/dl (14.0-18.0); Mean Corpuscular Hemoglobin 32.5 pg (25.0-34.0); Mean Corpuscular Hgb Conc 34.3 g/dL (32.0-36.0); Mean Corpuscular Volume 94.8 fL (80.0-100.0); Mean Platelet Volume 9.2 fL (9.4-12.4); Platelet Count 372 K/uL (130-400); RDW Coefficient of Variation 12.9 % (11.5-14.5); RDW Standard Deviation 44.1 fL (36.4-46.3); Red Blood Count 4.59 M/uL (4.63-6.08)
[2022-11-11 01:35] LABS: BUN Creatinine Ratio 14.2 (10-20); Calcium 8.9 mg/dl (8.5-10.1); Creatinine Clr Calc Pharmacy 65.4 ml/min; Est GFR (African American) 52.9 ml/min; Est GFR (Non-African American) 45.7 ml/min; Magnesium 2.1 mg/dl (1.7-2.4); Potassium 4.2 mmol/L (3.5-5.1)
[2022-11-11 01:55] LABS: Partial Thromboplastin Ratio 1.9
[2022-11-11 02:25] LABS: Partial Thromboplastin Time 52.5 Seconds (21.0-31.0)
[2022-11-11] MEDS: HEPARIN SODIUM/DEXTROSE 25,000 UNITS/500 ML BAG IV SCH ×2 (02:54→16:35)
[2022-11-11] MEDS ORDERED: SODIUM CHLORIDE 0.9% 500 ML IV ONE (05:00)
[2022-11-11] MEDS: INSULIN ASPART PER UNIT SC SCH ×3 (08:26→16:35)
[2022-11-11] MEDS: METOPROLOL TARTRATE 25 MG TAB PO SCH (08:31)
[2022-11-11] MEDS: VALSARTAN/SACUBITRIL 26/24MG TAB PO SCH (08:32)
[2022-11-11] MEDS: ASPIRIN 325 MG ECTAB PO SCH (08:32)
[2022-11-11] MEDS: LANTUS PER UNIT CHARGE SQ SCH (08:35)
[2022-11-11] MEDS ORDERED: MIDAZOLAM HCL 1 MG/ML 2ML VIAL ONE (09:07)
[2022-11-11] MEDS ORDERED: niCARdipine HCL INJ 2.5 MG/ML 10 ML AMP ONE (09:07)
[2022-11-11] MEDS ORDERED: HEPARIN (PORCINE) 1000 UNIT/ML 10 ML (CATH LAB USE ONLY) ONE (09:07)
[2022-11-11] MEDS ORDERED: fentaNYL citrate 100 MCG/2 ML VIAL ONE (09:08)
[2022-11-11] MEDS ORDERED: NITROGLYCERIN/D5W 100MCG/ML 20ML SYR ONE (09:08)
--- NOTE | 2022-11-11 09:24 | Pre Anesthesia Assessment ---
Date of Service November 11, 2022 Pre Sedation Assessment Vital Signs Temp Pulse Pulse Resp BP Pulse Ox Pulse Ox 11/11/22 09:08 85 18 151/90 H 97 11/11/22 07:22 36.7 C 87 18 127/77 91 11/11/22 05:20 86 11/11/22 04:47 36.4 C L 89 18 114/78 93 11/10/22 22:35 36.6 C 70 16 123/80 93 11/10/22 20:00 11/10/22 20:00 97 11/10/22 19:00 36.7 C 90 20 104/66 92 11/10/22 15:56 89 11/10/22 15:45 37.0 C 18 103/67 89 L 11/10/22 11:29 36.8 C 81 18 108/74 91 O2 Del Method O2 Del Method O2 Flow Rate O2 Flow Rate 11/11/22 09:08 Room Air 11/11/22 07:22 Room Air 11/11/22 05:20 11/11/22 04:47 Room Air 11/10/22 22:35 Room Air 11/10/22 20:00 Nasal Cannula 2 11/10/22 20:00 Nasal Cannula 2 11/10/22 19:00 Room Air 11/10/22 15:56 11/10/22 15:45 Room Air 11/10/22 11:29 Room Air Cardiovascular RRR, no murmur, no edema Respiratory normal respiratory effort, lungs clear to auscultation Pre-Sedation Airway Assessment Smoking Status: Current every day smoker Short, Thick Neck: No Thyromental Distance: > or= 3.5 Finger Breadths Oral Cavity: + WNL Mallampati Class: II ASA4 ASA: ASA3 NPO Status Date of Last Intake of Fluids: 11/10/22 Date of Last Intake of Solid Food: 11/10/22 Notes The planned sedation has been discussed with the patient. Informed Consent was obtained. I have identified the patient, determined the appropriateness of sedation and have assessed the patient immediately prior to the procedure. All medicine(s) and interventions are by my order.
[2022-11-11 09:37] LABS: iSTAT Creatinine 1.6 mg/dl (0.6-1.3); iSTAT Hemoglobin 15.6 g/dl (14.0-18.0); iSTAT Ionized Calcium 1.16 mmol/l (1.12-1.32); iSTAT Potassium 4.3 mmol/L (3.3-5.0)
[2022-11-11 09:40] LABS: Estimated Average Glucose 183 mg/dl
--- NOTE | 2022-11-11 10:30 | Post Anesthesia Assessment ---
Date of Service November 11, 2022 Post Sedation Assessment Vital Signs Temp Pulse Pulse Resp BP Pulse Ox Pulse Ox 11/11/22 10:20 81 16 117/80 93 11/11/22 10:09 88 16 130/84 94 11/11/22 08:00 84 11/11/22 08:00 11/11/22 09:08 85 18 151/90 H 97 11/11/22 07:22 36.7 C 87 18 127/77 91 11/11/22 05:20 86 11/11/22 04:47 36.4 C L 89 18 114/78 93 11/10/22 22:35 36.6 C 70 16 123/80 93 11/10/22 20:00 11/10/22 20:00 97 11/10/22 19:00 36.7 C 90 20 104/66 92 11/10/22 15:56 89 11/10/22 15:45 37.0 C 18 103/67 89 L 11/10/22 11:29 36.8 C 81 18 108/74 91 O2 Del Method O2 Del Method O2 Flow Rate O2 Flow Rate 11/11/22 10:20 Room Air 11/11/22 10:09 Room Air 11/11/22 08:00 11/11/22 08:00 Room Air 11/11/22 09:08 Room Air 11/11/22 07:22 Room Air 11/11/22 05:20 11/11/22 04:47 Room Air 11/10/22 22:35 Room Air 11/10/22 20:00 Nasal Cannula 2 11/10/22 20:00 Nasal Cannula 2 11/10/22 19:00 Room Air 11/10/22 15:56 11/10/22 15:45 Room Air 11/10/22 11:29 Room Air Recovery Score Activity: Moves 4 extremities Respiration: Deep Breath/Cough Circulation: +/-20% PreAnes Value Consciousness: Fully Awake Oxygen Saturation: > 92% On Room Air Post Anesthesia Score: 10 Discharge Sedation Level of Care: Phase I Post Sedation Plan On clinical assessment, the patient appears to have tolerated the sedation without complications. Patient is recovering as anticipated. Patient will continue to be monitored by nursing and may be discharged when sedation discharge criteria are met per below protocol. Upon Completions of procedure up to 15 minutes continue every 5 minute vital signs and the P.A.R. score; then discharge to a Phase I or Fast Track to Phase II per the following guidelines: * Discharge Patient to appropriate Phase II area if PAR is 8 or greater or return to pre- procedure baseline. The post - procedure orders will be as directed. * If PAR score is less than 8 or not return to pre-procedure baseline then patient will follow Phase I monitoring till PAR is reached for Phase II. The Phase I may be done in procedure room or may call to secure a Phase I area. * If naloxone or flumazenil are used for reversal, hold in Phase I for continued monitoring from when last reversal dose was given for a minimum of 60 minutes or longer pending the nurse and/or physician discretion of patient condition before discharge to Phase II. Please call the Sedation Physician to re-evaluate and complete post-note for discharge to Phase II area. Do NOT discharge from procedure sedation or Phase 1 until post- sedation evaluation note is complete by procedure /sedation MD Sedation Discharge Instructions to be given to the patient at discharge to home. [facility] Procedure Codes (Charges) Indication for Procedure Indication for procedure: cardiomyopathy NSTEMI Sedation/Anesthesia Procedure 1: Sedation/Anesthesia: 14966 Mod Sedation by the same physician;Init15 Min Child Age 5 & Up (11 mins (total11 min)) Total Sedation Time (minutes): 11
--- NOTE | 2022-11-11 10:49 | Cardiac Catheterization ---
[facility] Data: [employer] Level Five Cardiac Status Clinical evaluation leading to the procedure CAD Presenation: Non STEMI Coronary Anatomy Dominant: Right Left Main (% Stenosis): Normal (Mild diffuse) LAD (% Stenosis): Proximal (95) and Mid (100%) D1 (% Stenosis): Ostial D2 (% Stenosis): Ostial Circumflex (% Stenosis): Mid (99) OM1 (% Stenosis): Mid (50 to 70%) OM2 (% Stenosis): Ostial (100%) RCA (% Stenosis): Proximal (100%) R PDA (% Stenosis): Normal (Fills via pref-bu-mroxv collaterals) R PL1 (% Stenosis): Normal (Fills via left to right collateral) Diagnostic Physicians Name: Truman Davalos MD, PhD Closure Device Percutaneous Entry Location: Radial Closure Device: Radial Band Recommendations: Medical Therapy and/or Counseling and CABG Cardiac Cath Procedure Full Procedure Date November 11, 2022 Pre-Procedure Diagnosis Pre-Procedure Diagnosis: Non STEMI and Cardiomyopathy AUC Score AUC Score: 09 Post-Procedure Diagnosis Post-Procedure Diagnosis: Severe CAD and Decreased LV Systolic Function Procedure(s) Performed Procedure(s) Performed: Coronary Angiography Barrel Cooper Truman Davalos MD, PhD Estimated Blood Loss Estimated Blood Loss: 5 ml Medication(s) Medication(s): Fentanyl, Heparin, Lidocaine 1%, Nitroglycerin and Versed Summary of Findings Brief description: Patient was brought to the cardiac catheterization suite where he was shaved and prepped in a sterile fashion. Sedated using IV Versed and fentanyl. Soft tissues of the right wrist were anesthetized using 2 mL of 1% Xylocaine. The right radial artery was accessed using a modified Seldinger technique and a 6 [place] radial artery glide sheath was placed. Patient was provided antispasmodics with intra-arterial nitroglycerin. All catheters were advanced and exchanged over a 0.035 J-tip wire. Left coronary angiography performed in orthogonal views with a 5 [place] JL 4 diagnostic catheter. Right coronary angiography in orthogonal views with a 5 [place] TIGR 4 diagnostic catheter. Diagnostic catheters were removed. Radial artery sheath was removed. Hemostasis was obtained using the TR band. Patient remained hemodynamically stable and asymptomatic. He was returned to the recovery area. This ended the case. Coronary angiography findings: LMT: Large-caliber vessel which bifurcates into LAD and circumflex. There is diffuse mild disease. LAD: Large caliber and transapical. There is a large perforating septal trunk. The proximal LAD has an eccentric lesion of 95%. There is a long but small caliber branching first diagonal. There is a medium length small caliber second diagonal. The diagonals fills via left to left collateralization. The mid LAD is 100% occluded. The distal vessel is seen to be of relatively large caliber and fills via left to left collateralization. Left circumflex: Large caliber and probably nondominant. Proximal segment in the AV groove has mild luminal irregularities. It provides a large caliber branching OM1. This vessel has diffuse mild disease except in its mid segment where there is a more focal 50 to 70% stenosis. The mid AV groove circumflex is 99% occluded with RAMANA I flow distally. This fills a medium to large caliber branching OM 2 which appears to be 100% occluded at its ostium filling via left to left collateralization. The AV groove vessel fills slowly distally and then provides a small caliber left posterior lateral. RCA: Medium to large in caliber and likely dominant. It is 100% occluded proxim ally and this is a chronic occlusion. The distal vessel, the right PDA, and the right posterolateral branch are all found to be relatively large in caliber and fill via left to right collateralization. Summary: Severe multivessel coronary artery disease including chronic total occlusion of the RCA, occlusion of the mid LAD which may be subacute, and subtotal occlusion of the mid circumflex. There is substantial collateralization of the branch vessels. Recommend evaluation for coronary artery bypass grafting Initiate optimized guideline directed medical therapy for secondary prevention of coronary disease including; low-dose aspirin, high intensity statin therapy, beta-paulette, plus or minus REGULO inhibitor/ARB as tolerated. Hemodynamics Rest Ao:: 117/93 mmHg, mean 101 mmHg Final Ao: 134/90 mmHg, mean 105 LV: Not performed Recommendations Recommendations: Medical Therapy and/or Counseling and CABG Radiation Exposure (mGy) 1156 mGy, fluoroscopy time 1.7 minutes Contrast (mls) 80 Anesthesia 1 mg IV Versed, 25 mcg IV fentanyl Procedural Complication(s) None I attest to the content of the Intraoperative Record and any orders documented therein. Any exceptions are noted below. [employer] Card Cath Procedure Codes Cardiac Catheterization Procedure 1: Cardiovascular Cath Procedures: 25223 Coronaries Moderate Sedation Procedure 1: Sedation/Anesthesia: 73175 Mod Sedation by the same physician;Init15 Min Child Age 5 & Up (Total 11 minutes) PG Care Time/CCT Total # of Minutes Spent Total Time Spent with Patient: Total time spent is greater than 50% in coordination of care (as documented) at patient's floor/unit and/or counseling patient:
[2022-11-11] MEDS ORDERED: Nursing to Pharmacy Communication SCH (11:15)
--- NOTE | 2022-11-11 12:24 | Electrocardiogram Report ---
Test Reason : Blood Pressure : / mmHG Vent. Rate : 080 BPM Atrial Rate : 080 BPM P-R Int : 180 ms QRS Dur : 108 ms QT Int : 362 ms P-R-T Axes : 070 086 002 degrees QTc Int : 417 ms Normal sinus rhythm Possible Left atrial enlargement Anteroseptal infarct (cited on or before 09-NOV-2022) Abnormal ECG When compared with ECG of 10-NOV-2022 05:38, QT has shortened Confirmed by Christopher Salazar ([id number]) on 11/11/2022 12:24:34 PM Referred By: REFERRED SELF Confirmed By:Christopher Salazar
--- NOTE | 2022-11-11 14:48 | Cardiology Progress Note ---
Date of Service November 11, 2022 Assessment & Plan Admission and Anticipated Discharge Date Admission Date: November 09, 2022 Subjective No new events overnight; no progressive angina or SOB; no palps Results & Data ([facility]) Vital Signs (Past 12 Hours) Vital Signs Temp Pulse Pulse Resp BP Pulse Ox O2 Del Method 11/11/22 13:30 36.5 C 87 20 105/68 96 Room Air 11/11/22 12:30 36.6 C 72 18 102/66 90 Room Air 11/11/22 10:50 75 11/11/22 12:00 36.7 C 69 20 103/66 93 Room Air 11/11/22 11:30 36.8 C 77 20 112/73 95 11/11/22 11:15 36.7 C 73 18 110/74 94 Room Air 11/11/22 11:00 36.6 C 65 18 116/73 91 Room Air 11/11/22 10:45 36.7 C 80 18 124/83 92 Room Air 11/11/22 10:20 81 16 117/80 93 Room Air 11/11/22 10:09 88 16 130/84 94 Room Air 11/11/22 08:00 84 11/11/22 08:00 Room Air 11/11/22 09:08 85 18 151/90 H 97 Room Air 11/11/22 07:22 36.7 C 87 18 127/77 91 Room Air 11/11/22 05:20 86 11/11/22 04:47 36.4 C L 89 18 114/78 93 Room Air He is awake alert and oriented x3 is in no acute distress HEENT: Mildly reduced carotid upstrokes no evidence of carotid bruits Lungs: Globally decreased breath sounds but no rales rhonchi or wheezing Heart: Regular rate and rhythm no appreciable murmurs rubs or gallops Abdomen: Soft nontender nondistended positive bowel sounds no abdominal bruits Extremities: No clubbing cyanosis or edema Psychiatric: His affect appeared appropriate Neurologic: He is awake alert and oriented x3 and answers questions appropriately EKG sinus tachycardia with Q waves V1 to V4 consistent with anterior septal PA age-indeterminate; interestingly he does have any T wave inversions in the same precordial leads which would suggest his event occurred multiple weeks ago. When this is compared to a prior EKG of 2019 the anterior septal Q waves are new Laboratory studies were reviewed CARDIAC CATH: Coronary Anatomy Dominant: Right Left Main (% Stenosis): Normal (Mild diffuse) LAD (% Stenosis): Proximal (95) and Mid (100%) D1 (% Stenosis): Ostial D2 (% Stenosis): Ostial Circumflex (% Stenosis): Mid (99) OM1 (% Stenosis): Mid (50 to 70%) OM2 (% Stenosis): Ostial (100%) RCA (% Stenosis): Proximal (100%) R PDA (% Stenosis): Normal (Fills via [id number] collaterals) R PL1 (% Stenosis): Normal (Fills via left to right collateral) IMPRESSIONS: 1. Non-ST elevation myocardial infarction 1B. Severe 3V CAD 1C. Severe Lv dysfunction with thinned , calcified and akinetic inferior wall, inferoseptum, and apex; hypokinesis of the rest of the segments 2. Acute systolic heart failure 3. Anterior septal infarct likely early October 2022 4. Single kidney status post nephrectomy with a baseline creatinine of 1.3 5. History of tobacco abuse smoking 1 to 1-1/4 packs/day 6. Diabetes mellitus type 2 7. Family history of abdominal aortic aneurysms and intracerebral aneurysms Long discussion with patient and family RE: High Risk CABG, need for viability study, hope for hibernating myocardium and ultimate improvement in LV fxn. Discussed up front risk of sx vs benefit of improved life expectancy, reduced CHF risk, improved quality of life. His risk will be higher up front with DM, Tobacco use, single kidney, recent PA, and severe LV dysfunction. Discussed what to expect in hospital, hospital LOS after sx, 6-12 week recovery and lifting and driving restrictions. Spent 25 minutes coordinating care with [employer], transfer center, C[place] at [facility], Inpatient Cards attending at [facility], and the family. Transfer arranged to [facility] on Heparin via ground.
--- NOTE | 2022-11-11 16:02 | Discharge Summary ---
Date of Service November 11, 2022 Admission HPI Per Admitting Provider 52-year-old male who has a history of diabetes as well as tobacco use who presented to the emergency department for an evaluation of difficulty breathing. The patient states he has had ongoing symptoms for at least the last few weeks. He stated that his symptoms initially woke him from sleep where he had tightness in his chest nausea and vomiting with diarrhea he then had abdominal discomfort which he described as indigestion or gas pains. Since that time exertionally he gets very short of breath he feels this chest tightness the last for 2 to 3 minutes resolves with rest he is not in any other associated symptoms until today when they were associated with diaphoresis he has had no left arm or neck radiation. In the ER he looks uncomfortable he is easily recognizably tachypneic He denies infectious symptoms, hemoptysis, or fever. He describes a burning/tightening sensation across his anterior chest. He states that this pain is not constant and are worsened with any exertion. Patient symptoms improved with oxygen patient has an elevated troponin of 1400 and has a nonacute but changed EKG from baseline and congestive heart failure changes seen on chest x-ray. Concern for NSTEMI plus minus unstable angina. We will trend troponins if worsens will recontact cardiology. Emergency physician spoke with Dr. Murphy who reportedly felt this patient was not meeting criteria for heart alert Principal Diagnosis Three-vessel coronary artery disease status post left heart catheterization Discharge Exam at 1500h, was cheerful and cooperative in exam No chest pain/orthopnea/PND or shortness of breath. Head and neck no JVD Chest clear to auscultation CVS S1-S2 Extremities no edema CORE DRIER grossly intact Adequate insight and judgment Discharge Data Allergies Allergy/AdvReac Type Severity Reaction Status Date / Time No Known Allergies Allergy Verified 11/09/22 15:25 Consultations 11/09/22 13:59 ED Decision to Admit Stat 11/09/22 14:01 Consult Cardiology Stat 11/09/22 17:52 Consult Cardiology Routine 11/10/22 11:41 Consult Cardiac Catheterization Routine Procedures Performed Operation Date: 11/11/22 09:00 Actual Procedures s Cineradiography w/Routine Exam - Truman Davalos MD, PhD p Cath, Coronaries ONLY (no LV) - Truman Davalos MD, PhD Ordered Studies 11/11/22 08:22 CL Cath Imgs for PACS use only Routine Hospital Course (1) NSTEMI (non-ST elevated myocardial infarction): Patient presents with an NSTEMI which was complicated by pulmonary edema and congestive heart failure. Troponin is elevated but the patient does not have a exact precipitation of severe symptoms. The symptoms seem to be progressive cardiology felt he probably had an ST elevation [place] around 24 October when symptoms started. Left heart catheterization has revealed 100% occlusion of LAD, RCA and left circumflex. He has been accepted by Dr. Polk at [facility] for CABG. 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 He typically follows with Dr. Harrell, His creatinine is stable at this time he will remain on his ARB (3) Hypertension: Typically on losartan blood pressure is up in the emergency department he will be initiated on metoprolol with as needed metoprolol (4) Dyslipidemia: Lipitor be increased to 40 have a fasting lipid in the morning (5) Diabetes type 2, controlled: Patient is on basal bolus insulin at home with a Trulicity also. The Trulicity is held he will be on basal bolus insulin. He currently is n.p.o. but if his second troponin is not increased likely would feel that he would be on a diabetic diet. Patient states he is not been compliant with his diabetes of late (6) Tobacco abuse: Patient is a current 1 pack a day smoker says he is going to stop smoking now per admitting providerI did not discuss this with him for reasons mentioned above At admissionhe was counseled on smoking cessation at admission. He will be offered lorazepam instead as needed Total Time Total Time Spent Total Time Spent (In Minutes): 40 Discharge Plan Discharge Items Patient Disposition: Transfer Acute Care Hospital Reason For Visit: NSTEMI, CKD, DM Discharge Diagnosis: Three-vessel coronary artery diseasetransferred for CABG Activity: Resume your previous activity Non-emergency contact: Surgeon Call non-emergency contact if: you have any medication questions Follow-up/Referrals: Kristin Nelson CRNP [Primary Care Provider] - Diet: Carb Consistent or DM2 and Heart Healthy Addtl Attending Provider Instructions: Dr Polk Pending Studies at Discharge: No Stand-Alone Forms: My [facility] [employer] Skilled Items Patient informed of condition?: Yes DNR: No Discharge Level of Care: Other Communicable Disease: No Discharge Prognosis: Stable Lines: Peripheral IV Urinary Catheter: No Medications and DC Order Prescriptions: New atorvastatin 40 mg Tablet 80 mg PO QPM Qty: 7 0RF acetaminophen 325 mg Tablet 650 mg PO Q4H PRN (Reason: fever or pain) Qty: 7 0RF nitroglycerin [Nitrostat] 0.4 mg Tablet, Sublingual 0.4 mg sublingual UD PRN (Reason: chest pain) Qty: 7 0RF Entresto 24-26 mg Tablet 1 tab PO BID Qty: 7 0RF Continued insulin glargine [Lantus Solostar U-100 Insulin] 100 unit/mL (3 mL) insulin pen 20 unit subcut BID Qty: 15 5RF Discontinued Trulicity 1.5 mg/0.5 mL pen injector 1.5 mg SQ WEEKLY Qty: 6 3RF Rx Instructions: takes on friday atorvastatin 20 mg tablet 20 mg PO QPM Qty: 90 3RF losartan 100 mg tablet 100 mg PO DAILY Qty: 90 3RF cholecalciferol (vitamin D3) 1,250 mcg (50,000 unit) capsule 1,250 mcg PO .COMPLEX Qty: 12 3RF Rx Instructions: 1,250 mcg PO per week; Takes on fri Primatine Mist 2 puff inhalation DIRECTED PRN (Reason: Shortness Of Breath Or Wheezing) No Action (DME) pen needle, diabetic [BD Ultra-Fine Mini Pen Needle] 31 gauge x 3/16" needle See Dose Instructions .ROUTE .MEDSUPPLY Qty: 200 3RF Dose Instruction: As directed Rx Instructions: for use 2 times daily (DME) OneTouch Verio test strips Strip See Rx Instructions .ROUTE .MEDSUPPLY Qty: 10 Rx Instructions: Test blood sugar two times daily (DME) FreeStyle [place] 14 Day Sensor Kit See Rx Instructions miscellaneous .MEDSUPPLY Qty: 2 5RF Rx Instructions: As directed Discharge Orders: Discharge Order (Routine); Ordered 11/11/22 Ordered By: Jd Boswell Admission Data Admit Date/Time: 11/09/22 14:06 Attending Provider: Jd Boswell Admit Provider: Joseph Arreola Primary Care Provider: Kristin Nelson Other Providers: Fabian Gutierrez ; Joseph Arreola ; Herbie Friedman Other Interventions: Discharge Summary Assessment (RN) Last Done: 11/11/22 16:50 Coding Level of Care Code D/C DAY MANAGEMENT >30 MINS Diagnoses NSTEMI (non-ST elevated myocardial infarction) I21.4 Chronic kidney disease, stage 3a N18.31 Hypertension I10 Dyslipidemia E78.5 Diabetes type 2, controlled E11.9 Tobacco abuse Z72.0
--- NOTE | 2022-11-22 11:54 | Coding Query ---
CONGESTIVE HEART FAILURE To Promote full compliance with coding requirements relating to patient care, physician participation is requested in all cases of health information coder uncertainty. Please assist us with the following questions. A diagnosis of Congestive Heart Failure is documented in the patient's medical record. To accurately code this diagnosis and to compare patient severity, we ask that you specify the type of heart failure by placing an X within the parenthesis (x). SYSTOLIC HEART FAILURE ( ) Acute ( ) Chronic ( ) Acute on Chronic ( ) Rheumatic ( ) Unknown DIASTOLIC HEART FAILURE ( ) Acute ( ) Chronic ( ) Acute on Chronic ( ) Rheumatic ( ) Unknown COMBINED SYSTOLIC AND DIASTOLIC HEART FAILURE ( ) Acute ( ) Chronic ( ) Acute on Chronic ( ) Rheumatic ( ) Unknown Was the CHF Present On Admission? Please check the appropriate box: ( ) Present on Admission ( ) Not Present On Admission ( ) Clinically undetermined Thank you Ashanti MALDONADO
--- NOTE | 2022-12-02 06:55 | Coding Query ---
CONGESTIVE HEART FAILURE To Promote full compliance with coding requirements relating to patient care, physician participation is requested in all cases of medical biller/coder uncertainty. Please assist us with the following questions. A diagnosis of Congestive Heart Failure is documented in the patient's medical record. To accurately code this diagnosis and to compare patient severity, we ask that you specify the type of heart failure by placing an X within the parenthesis (x). SYSTOLIC HEART FAILURE ( ) Acute ( ) Chronic ( xx ) Acute on Chronic ( ) Rheumatic ( ) Unknown DIASTOLIC HEART FAILURE ( ) Acute ( ) Chronic ( ) Acute on Chronic ( ) Rheumatic ( ) Unknown COMBINED SYSTOLIC AND DIASTOLIC HEART FAILURE ( ) Acute ( ) Chronic ( ) Acute on Chronic ( ) Rheumatic ( ) Unknown Was the CHF Present On Admission? Please check the appropriate box: ( xx ) Present on Admission ( ) Not Present On Admission ( ) Clinically undetermined Thank you Ashanti MALDONADO
== END 2022-11-11 17:49 | disposition short-term general hospital (02) | DRG 280 ==
LOC: ED 12:17 → SUATTDRO 14:06 → 2S 14:06
PROC: CLB.CCO (2022-11-11 09:00)

== ENCOUNTER 2023-03-07 08:55 | Observation (INO) ==
[~2023-03-07 08:55] MED LIST changes: +BUPIVACAINE 0.25% PF 30 ML VIAL ONE; -CEFAZOLIN 2000MG 2,000 MG/15 ML SYR IV SCH; +LIDOCAINE 1% LOCAL 20 ML VIAL ONE; +VANCOMYCIN HCL 1000MG/20ML VIAL ONE; +WATER, STERILE FOR INJ 10 ML VIAL ONE
[2023-03-07] MEDS ORDERED: ceFAZolin 330 MG/ML 1 GM VIAL ONE ×2 (09:35→10:19)
[2023-03-07] MEDS ORDERED: MIDAZOLAM HCL 5 MG/ML 1 ML VIAL ONE (09:35)
[2023-03-07] MEDS ORDERED: fentaNYL citrate PF 100 MCG/2 ML VIAL ONE ×2 (09:35→10:28)
[2023-03-07] MEDS ORDERED: ACETAMINOPHEN 325 MG TAB PO PRN (10:59)
[2023-03-07] MEDS ORDERED: oxyCODONE HCL IR 5 MG TAB (IMMEDIATE RELEASE) PO PRN (10:59)
--- NOTE | 2023-03-07 10:59 | Post Anesthesia Assessment ---
Date of Service March 07, 2023 Post Sedation Assessment Vital Signs Temp Pulse Resp BP Pulse Ox O2 Del Method 03/07/23 09:10 36.5 C 90 18 125/80 95 Room Air Recovery Score Activity: Moves 4 extremities Respiration: Deep Breath/Cough Circulation: +/-20% PreAnes Value Consciousness: Arouseable (by name) Oxygen Saturation: > 92% On Room Air Discharge Sedation Level of Care: Fast Track Phase II Post Sedation Plan On clinical assessment, the patient appears to have tolerated the sedation without complications. Patient is recovering as anticipated. Patient will continue to be monitored by nursing and may be discharged when sedation discharge criteria are met per below protocol. Upon Completions of procedure up to 15 minutes continue every 5 minute vital signs and the P.A.R. score; then discharge to a Phase I or Fast Track to Phase II per the following guidelines: * Discharge Patient to appropriate Phase II area if PAR is 8 or greater or return to pre- procedure baseline. The post - procedure orders will be as directed. * If PAR score is less than 8 or not return to pre-procedure baseline then patient will follow Phase I monitoring till PAR is reached for Phase II. The Phase I may be done in procedure room or may call to secure a Phase I area. * If naloxone or flumazenil are used for reversal, hold in Phase I for continued monitoring from when last reversal dose was given for a minimum of 6 0 minutes or longer pending the nurse and/or physician discretion of patient condition before discharge to Phase II. Please call the Sedation Physician to re-evaluate and complete post-note for discharge to Phase II area. Do NOT discharge from procedure sedation or Phase 1 until post- sedation evaluation note is complete by procedure /sedation MD Sedation Discharge Instructions to be given to the patient at discharge to home.
--- NOTE | 2023-03-07 10:59 | Electrophysiology Report ---
Date of Service March 07, 2023 Electrophysiology Procedure Electrophysiology Procedure Report Procedure performed: Implantation of single-chamber ICD Staff mill turner: Nadir Tapia MD Indication: The patient is a 52-year-old gentleman with history of ischemic cardiomyopathy and an ejection fraction persistently below 35%. He is [place] heart Association class 1 symptoms. He has not had a myocardial infarction in the past 40 days more revascularization in the past 90 days. He is on guideline directed medical therapy and has an anticipated longevity greater than 1 year. Based on these factors is felt to be a good candidate for an ICD as primary prevention against sudden cardiac . Procedure in detail: The patient was informed of the risks benefits and alternatives to the intended procedure and he wished to proceed. He was taken to the electrophysiology suite in a fasting state. A preoperative antibiotic had been administered. The patient was monitored electrocardiographically throughout today's procedure and conscious sedation was administered per protocol. The left upper pectoral area is prepped and draped in usual sterile fashion. This area was anesthetized using subcutaneous administration of a xylocaine solution. An incision was made at t his site and carried down to the prepectoralis fascia using sharp dissection. Electrocautery was also employed for dissection as well as for hemostasis. A device pocket was fashioned tissues above the pectoralis muscle. Subsequent to this maneuver the left axillary vein was accessed using modified Seldinger technique. A sheath was placed over guidewire and used facilitate passage of the ICD she the right ventricular apex under fluoroscopic guidance. Adequate sensing threshold parameters were obtained prior to active fixation of this lead to the endocardial surface. The proximal portion lead was then sutured to prepectoralis fascia using nonabsorbable suture. The pocket was irrigated with an antibiotic solution. The lead was then attached to the device. The device and the rhythm placed in the pocket and the pocket closed in 3 layers of absorbable suture. Steri-Strips and sterile dressing were applied. The device was tested noninvasively prior to conclusion the procedure. The patient tolerated procedure well there no immediate complications. Equipment used: New pulse generator: [employer] F[employer]. Model number: [id number] serial number [id number] Right ventricular lead: [employer]. Model number: 6935 mm serial number [id number] Measured data: Right ventricular lead: R-waves measured 17.3 mV. Pacing threshold 0.3 volts at 0.5 milliseconds with a pacing impedance of 642 Ohms Impression: Successful implantation of single-chamber ICD MNPG Electrophysiology codes ICD Procedure 1: ICD: 14275 Insert single or dual ICD system PG Moderate Sedation Codes Moderate Sedation Codes Procedure 1: Sedation/Anesthesia: 57207 Mod Sedation by the same physician;Init15 Min Child Age 5 & Up Procedure 2: Sedation/Anesthesia: 96190 Mod Sedation by the same physician; Ea [id number] Minutes
[2023-03-07] MEDS ORDERED: DEXTROSE 50% 50 ML SYRINGE IV PRN (13:30)
[2023-03-07] MEDS ORDERED: GLUCOSE 40% GEL 15 GM TUBE PO PRN (13:30)
[2023-03-07] MEDS ORDERED: GLUCAGON FOR INJ 1 MG VIAL IM PRN (13:30)
[2023-03-07] MEDS ORDERED: CARBOHYDRATES FOR HYPOGLYCEMIA PO PRN (13:30)
[2023-03-07] MEDS ORDERED: GLUCOSE 10 TAB/TUBE PO PRN (13:30)
--- NOTE | 2023-03-07 16:25 | XRay Report ---
TWO VIEW CHEST CLINICAL HISTORY: Pacemaker implantation. FINDINGS: PA and lateral chest radiographs are compared to study dated 11/09/2022 and correlated with chest CT dated 09/24/2019. A single lead cardiac AICD has been placed. The lead projects over the rig ht ventricle. The heart is enlarged. The pulmonary vasculature is noncongested. Emphysema and chroni c interstitial thickening similar to previous. There is bibasilar scarring/atelectasis. No airspace c onsolidation or large pleural effusion is identified. There is no pneumothorax. The skeletal structur es are osteopenic. The bony thorax appears intact. Degenerative change is noted in the shoulders and spine. IMPRESSION: 1. A single lead cardiac AICD has been implanted as above. No pneumothorax is identified post procedu re. 2. Cardiomegaly and emphysema without radiographic evidence of congestive failure. 3. No airspace consolidation or pleural effusion is identified. ACT 112: Negative or not required by law. Electronically signed by: George Cabrera M.D. 03/07/2023 4:23 PM
[2023-03-07] MEDS ORDERED: ceFAZolin 1000MG 1,000 MG/7.5 ML SYR IV ONE (18:00)
[2023-03-07] MEDS: VALSARTAN/SACUBITRIL 26/24MG TAB PO SCH (20:35)
[2023-03-07] MEDS: LANTUS PER UNIT CHARGE SQ SCH (20:38)
[2023-03-07] MEDS ORDERED: ATORVASTATIN 40 MG TAB PO SCH (21:00)
[2023-03-08] MEDS: VALSARTAN/SACUBITRIL 26/24MG TAB PO SCH (07:29)
[2023-03-08] MEDS: LANTUS PER UNIT CHARGE SQ SCH (07:32)
--- NOTE | 2023-03-08 08:12 | Discharge Summary ---
Date of Service March 08, 2023 Discharge Data Allergies Allergy/AdvReac Type Severity Reaction Status Date / Time No Known Allergies Allergy Verified 01/31/23 15:41 Procedures Performed Operation Date: 03/07/23 10:00 Actual Procedures p ICD Insertion Single or Dual - Nadir Tapia MD Ordered Studies 03/07/23 06:38 CL Cath Imgs for PACS use only Routine Discharge Plan Discharge Items Patient Disposition: Home - Self-Care Reason For Visit: Severe Ischemic Cardiomyopathy Discharge Diagnosis: cardiomyopathy Condition on Discharge: Good Activity: Per Instructions section Activity Comment: NO lifting left arm above shoulder or behind neck for 6 weeks Lifting: No more than 10 pounds Lifting Comment: May use right arm freely Bathing: Keep incision dry Bathing Comment: Keep wound dry and steri-strip intact until f/u Sexual Activity: When tolerated Driving/Machine Use: No limitations Non-emergency contact: Supervisor Public Health Nursing Call non-emergency contact if: you have any medication questions, you have a fever, your wound has increased redness, your wound has increased drainage and your wound pain has increased Follow-up/Referrals: Kristin Nelson CRNP [Primary Care Provider] - Diet: Carb Consistent or DM2 and Heart Healthy Addtl Attending Provider Instructions: Do not resume ELiquis until FridayMarch 10 Pending Studies at Discharge: No Stand-Alone Forms: My [facility] [employer], Smoking Cessation Medications and DC Order Prescriptions: Continued (DME) pen needle, diabetic [BD Ultra-Fine Mini Pen Needle] 31 gauge x 3/16" needle See Dose Instructions .ROUTE .MEDSUPPLY Qty: 200 3RF Dose Instruction: As directed Rx Instructions: for use 2 times daily insulin glargine [Lantus Solostar U-100 Insulin] 100 unit/mL (3 mL) insulin pen 20 unit subcut BID Qty: 15 5RF (DME) FreeStyle [place] 3 Sensor Device See Rx Instructions .Route Qty: 2 11RF Rx Instructions: Change every 14 days (DME) OneTouch Verio test strips Strip See Rx Instructions .ROUTE .MEDSUPPLY Qty: 10 Rx Instructions: Test blood sugar two times daily cholecalciferol (vitamin D3) 1,250 mcg (50,000 unit) capsule 50,000 unit PO Q7D Qty: 8 0RF Trulicity 1.5 mg/0.5 mL pen injector 1.5 mg subcut Q7D Qty: 2 3RF (DME) FreeStyle [place] 14 Day Sensor Kit See Rx Instructions miscellaneous .MEDSUPPLY Qty: 2 5RF Rx Instructions: As directed Eliquis 5 mg tablet 5 mg PO BID spironolactone 25 mg tablet 25 mg PO DAILY metoprolol succinate 50 mg tablet extended release 24 hr 50 mg PO DAILY Jardiance 10 mg tablet 10 mg PO DAILY aspirin [Adult Low Dose Aspirin] 81 mg tablet,delayed release (DR/EC) 81 mg PO DAILY atorvastatin 40 mg Tablet 80 mg PO QPM Qty: 7 0RF acetaminophen 325 mg Tablet 650 mg PO Q4H PRN (Reason: fever or pain) Qty: 7 0RF nitroglycerin [Nitrostat] 0.4 mg Tablet, Sublingual 0.4 mg sublingual UD PRN (Reason: chest pain) Qty: 7 0RF Entresto 24-26 mg Tablet 1 tab PO BID Qty: 7 0RF Discharge Orders: Discharge Order (Routine); Ordered 03/08/23 Ordered By: Nadir Tapia Admission Data Admit Date/Time: 03/07/23 10:59 Attending Provider: Nadir Tapia Admit Provider: Nadir Tapia Primary Care Provider: Kristin Nelson Coding Diagnoses
[2023-03-08] MEDS ORDERED: EMPAGLIFLOZIN 10 MG TAB PO SCH (09:00)
[2023-03-08] MEDS ORDERED: ASPIRIN 81 MG ECTAB PO SCH (09:00)
[2023-03-08] MEDS ORDERED: METOPROLOL SUCC 50MG EXT REL TAB PO SCH (09:00)
[2023-03-08] MEDS ORDERED: SPIRONOLACTONE 25 MG TAB PO SCH (09:00)
== END 2023-03-08 09:46 | disposition home or self-care (01) ==
LOC: EP 08:55 → INTOOBSV 10:59 → 4W 10:59
PROC: EPB.ICD (2023-03-07 10:00)

== ENCOUNTER 2025-01-03 11:32 | Inpatient (IN) ==
--- NOTE | 2025-01-03 13:04 | XRay Report ---
XR chest 1V not portable CLINICAL HISTORY: Chest pain, nonspecific COMPARISON STUDY: Chest radiograph March 07, 2023. FINDINGS: Left subclavian pacer is in place. Cardiomediastinal silhouette is stable. There are trace bilateral pleural effusions. There is no pneumothorax. There is pulmonary vascular congestion with po ssible mild pulmonary edema. A 5.5 cm right midlung opacity is present. IMPRESSION: 1. Pulmonary vascular congestion with possible mild pulmonary edema. Trace bilateral pleural effusion s. 2. 5.5 cm right midlung opacity. Although this could represent fissural fluid, pneumonia could appear similar. Follow-up PA and lateral chest radiographs in one month to ensure resolution are recommende d. ACT 112: Negative or not required by law. Electronically signed by: Killian Chase M.D. 01/03/2025 1:02 PM
[2025-01-03 13:13] LABS: INR 1.1 (0.9-1.1); Partial Thromboplastin Ratio 1.2; Partial Thromboplastin Time 32 Seconds (21-31); Prothrombin Time 11.4 Seconds (9.0-12.0)
--- NOTE | 2025-01-03 13:13 | Electrocardiogram Report ---
Test Reason : Blood Pressure : */* mmHG Vent. Rate : 115 BPM Atrial Rate : 115 BPM P-R Int : 124 ms QRS Dur : 104 ms QT Int : 324 ms P-R-T Axes : 39 49 106 degrees QTcB Int : 448 ms Sinus tachycardia Possible Inferior infarct , age undetermined Cannot rule out Anteroseptal infarct (cited on or before 09-Nov-2022) Abnormal ECG When compared with ECG of 11-Nov-2022 04:40, Nonspecific T wave abnormality, improved in Inferior leads Nonspecific T wave abnormality, worse in Lateral leads Confirmed by Nadir Tapia ([id number]) on 01/03/2025 1:13:00 PM Referred By: Confirmed By: Nadir Tapia
[2025-01-03 13:19] LABS: Basophils # (auto) 0.03 K/uL (0.00-0.20); Basophils % (auto) 0.3 %; Eosinophils # (auto) 0.02 K/uL (0.00-0.50); Eosinophils % (auto) 0.2 %; Hematocrit (blood only) 45.8 % (42.0-52.0); Hemoglobin 15.8 g/dl (14.0-18.0); Immature Granulocytes # (auto) 0.03 K/uL (0.01-0.20); Immature Granulocytes % (auto) 0.3 %; Lymphocytes # (auto) 0.82 K/uL (1.20-3.40); Lymphocytes % (auto) 7.8 %; Mean Corpuscular Hemoglobin 32.4 pg (25.0-34.0); Mean Corpuscular Hgb Conc 34.5 g/dL (32.0-36.0); Mean Corpuscular Volume 93.9 fL (80.0-100.0); Mean Platelet Volume 9.8 fL (9.4-12.4); Monocytes # (auto) 1.17 K/uL (0.11-0.59); Monocytes % (auto) 11.1 %; Neutrophils # (auto) 8.47 K/uL (1.40-6.50); Neutrophils % (auto) 80.3 %; Platelet Count 225 K/uL (130-400); RDW Coefficient of Variation 12.8 % (11.5-14.5); RDW Standard Deviation 43.9 fL (36.4-46.3); Red Blood Count 4.88 M/uL (4.70-6.10); White Blood Count 10.54 K/ul (4.8-10.8)
[2025-01-03 13:20] LABS: BUN Creatinine Ratio 14.8 (10-20); Bilirubin,Total 0.8 mg/dl (0.2-1.0); Calcium 9.8 mg/dl (8.6-10.3); Creatinine Clr Calc Pharmacy 69.1 ml/min; Potassium 4.8 mmol/L (3.5-5.1)
[2025-01-03 13:25] LABS: Troponin I High Sensitivity 10.7 pg/ml (0-20)
[2025-01-03] MEDS: MoRPHine SULFATE 4 MG/ML 1 ML CARP\\VIAL IV STA (13:28)
[2025-01-03] MEDS: ONDANSETRON INJ 2 MG/ML 2 ML VIAL IV STA (13:28)
--- NOTE | 2025-01-03 13:56 | Emergency Department Note ---
Impression & Plan SOB (shortness of breath), Pleuritic chest pain, Right-sided chest pain, Tachycardia, Abnormal chest CT, Anticoagulated ED Provider Note NAME: JIMMY LICONA AGE: 54 SEX: M : 1970 ARRIVES VIA: Walk-In INFORMANT: [Patient] ED PROVIDER(S): [George Fowler MD] CHIEF COMPLAINT: Shortness of breath HISTORY OF PRESENT ILLNESS: The patient is a 54-year-old male who states he has been coughing for 3 weeks. The cough actually seemed to be improving. The patient states that 4 days ago, he turned in bed and thought he may have pulled something across the right side of his chest. Initially, it was really just a minimal discomfort but in the last several days, the pain has become more intense and he has noticed some increased pain with taking a breath and with coughing. Certain movements worsen the pain. He feels somewhat short of breath. No fever, he has not fallen. Of note, the patient does take Eliquis on a chronic basis twice a day. He has a history of congestive heart failure. He has a defibrillator and pacemaker. PMHx/PSHx/Social Hx: See Below PHYSICAL EXAM: GENERAL: Patient is in no acute distress. HEENT: No acute trauma, normocephalic atraumatic, mucous membranes moist, no nasal congestion. NECK: No stridor, no adenopathy, no meningismus, trachea is midline. LUNGS: Crackles in the right mid to lower lung. No respiratory distress. Chest: Tender across the right lateral lower chest wall, no contusion or crepitus. HEART: Heart tones are quite distant, he does seem mildly tachycardic. ABDOMEN: Soft, nontender, no peritonitis. EXTREMITIES: No cyanosis, full range of motion of all the joints without pain or difficulty. NEUROLOGIC: Oriented x 3, no acute motor or sensory deficits, no focal weakness. SKIN: No jaundice, no diaphoresis. DIFFERENTIAL DIAGNOSIS: Bronchitis or pneumonia, pneumothorax or hemothorax, rib fracture, PE, among others. EMERGENCY DEPARTMENT PROCEDURES: MEDICAL DECISION MAKING: There is no leukocytosis or concerning anemia. There is a normal platelet count. No concerning coagulopathy. There was some mild renal insufficiency, no electrolyte abnormality requiring emergent correction. Lactic acid level was not elevated making sepsis less likely. There was no concerning liver enzyme elevation. BNP was not elevated making CHF unlikely. Chest x-ray showed a potential infiltrate in the right midlung. There was some increased pulmonary congestion. No pneumothorax. Chest CT showed a possible pneumonia, fluid collection or even PE in the right midlung. Respiratory bio fire was negative. ECG showed a sinus tachycardia, no acute ischemia. Cardiac enzyme testing x 1 is not consistent with acute cardiac injury. On exam, the patient was tachycardic, he had pleuritic pain and was tender across the right lateral mid chest wall. The patient received IV morphine for pain, he was eventually given IV Dilaudid for additional pain control. He was given IV Zofran for nausea. He received IV ceftriaxone as antibiotic coverage. Given the tachycardia, the pleuritic discomfort, his complicated past history, I do think a hospital stay and further workup is warranted. The finding on CT needs further explained. I did speak with the patient about his findings and the need for a hospital stay. I did speak with case management. The on-call hospitalist was consulted. Prior/Outside records/notes reviewed: None ECG per my interpretation: Indication was shortness of breath. The ECG shows a sinus tachycardia with a rate of 115. There appears to be an old inferior and old anterior infarct. There is no obvious ST elevation, no PVCs. The QTc is 448. Continuous Cardiac Monitoring per my interpretation: An order was placed for continuous cardiac monitoring. The monitor shows a rate of 103 with sinus tachycardia. Imaging/x-ray results per my interpretation: Chest film shows what appears to be a right midlung infiltrate and some mild CHF. No pneumothorax. Chronic Medical/Social conditions affecting care: History of congestive heart failure and chronic Eliquis use. Care/Management discussed with: Case management, the on-call hospitalist. Level of care consideration(s): After review of the information above and other included data: --I believe the patient requires escalation of care to admission DISPOSITION: Admitted Past Med/Surg History Problem List (Updated 01/03/25 @ 16:14 by George Fowler MD) Anticoagulated (Acute) Abnormal chest CT (Acute) Tachycardia (Acute) Right-sided chest pain (Acute) Pleuritic chest pain (Acute) SOB (shortness of breath) (Acute) Hemoptysis Acute hypoxic respiratory failure Pleural effusion, right Community acquired pneumonia Emphysema lung Pleurisy Rib pain Erythrocytosis History of renal cell carcinoma H/O kidney removal Ischemic cardiomyopathy Depression History of myocardial infarction NSI October 2022 Tobacco abuse Chronic kidney disease, stage 3a Hypertension Dyslipidemia Overweight Vitamin D deficiency Diabetic nephropathy associated with type 2 diabetes mellitus Diabetes type 2, controlled Medical History Quadriceps tendon rupture Surgical History History of right nephrectomy History of repair of ACL Hx of adenoidectomy Family History Father Lung cancer Brain cancer Mother Breast cancer Diabetes Other No known problems Social History Smoking Status: Former smoker Tobacco Type: Cigarettes Cigarettes Per Day: 1 PPD; Second Hand Exposure: Yes; Do You Dip or Chew Tobacco: No; Hx Alcohol Use: Yes Alcohol type: beer Hx Substance Use: No Preferred Language: Irish Communication Ability: Effective Visual Impairment: No Limitations Hearing Ability: Normal Jewelry Enameler Required: No Beliefs That Will Affect Care: None marital status: Single Current Living Situation: Significant Other current occupational status: employed 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 How many Children do You have: 1 Feels Safe at Home: Yes Diet: regular caffeine: Yes (3-4 coffees daily) Physical Activity Frequency: Does not Exercise Seatbelt Use: always Do you think of yourself as: straight/heterosexual Gender Identity: Male Assistive Devices: Crutches Allergies Allergies Allergy/AdvReac Type Severity Reaction Status Date / Time No Known Allergies Allergy Verified 11/25/24 11:21 Home Meds Home Medications Medication Instructions Recorded Confirmed blood sugar diagnostic (OneTouch #10 ea 08/13/21 11/25/24 Verio test strips) apixaban 5 mg tablet (Eliquis) 5 mg PO BID 01/17/23 11/25/24 aspirin 81 mg tablet,delayed 81 mg PO DAILY 01/17/23 11/25/24 release (Adult Low Dose Aspirin) empagliflozin 10 mg tablet 10 mg PO DAILY 01/17/23 11/25/24 (Jardiance) metoprolol succinate 50 mg 50 mg PO DAILY 01/17/23 11/25/24 tablet,extended release 24 hr spironolactone 25 mg tablet 25 mg PO DAILY 01/17/23 11/25/24 Previous Rx's Medication Instructions Recorded BD Ultra-Fine Mini Pen Needle 31 #200 ea 06/30/19 gauge x 3/16" (pen needle, diabetic) acetaminophen 325 mg tablet 650 mg (2 x 325 mg) PO Q4H PRN 11/11/22 fever or pain #7 tabs nitroglycerin 0.4 mg sublingual 0.4 mg sublingual UD PRN chest 11/11/22 tablet (Nitrostat) pain #7 tabs sacubitril 24 mg-valsartan 26 mg 1 tab PO BID #7 tabs 11/11/22 tablet (Entresto) rosuvastatin 40 mg tablet 40 mg PO DAILY #30 tabs 09/18/23 blood-glucose sensor (Dexcom G7 #3 ea 09/24/23 Sensor device) dulaglutide 1.5 mg/0.5 mL 1.5 mg (0.5 mL) subcut Q7D #2 mL 08/04/24 subcutaneous pen injector insulin glargine-yfgn 100 unit/mL 20 unit (0.2 mL) subcut BID #15 mL 08/10/24 (3 mL) subcutaneous pen (Semglee (insulin glargine-yfgn) Pen) cholecalciferol (vitamin D3) 1,250 50,000 unit PO Q7D #8 caps 11/29/24 mcg (50,000 unit) capsule Results & Data (ED) Vital Signs Vital Signs - 24 hr 01/03/25 12:00 01/03/25 12:55 01/03/25 13:18 Temperature 37.3 C Temperature Source Temporal Artery Scan Pulse Rate 119 H 107 H Pulse Rate [Left Apical] Pulse Rhythm Regular Pulse Strength Normal Respiratory Rate 18 Respiratory Effort / Characteristics Non-Labored Spontaneous Respiratory Depth Normal Respiratory Pattern Regular Blood Pressure 148/98 H Blood Pressure [Left Arm] Blood Pressure Mean 114 Blood Pressure Mean [Left Arm] Blood Pressure Position Sitting Pulse Oximetry 92 95 Oxygen Delivery Method Room Air Room Air Oxygen Flow Rate Sepsis Recent Fever Within 48 Hours No Sepsis New/Unexplained Change in Mental Status N/A Sepsis Action Taken by Nursing No Action Required Oxygen Flow Rate - Titration Pulse Oximetry Post Tiitration 01/03/25 13:30 01/03/25 14:00 01/03/25 14:30 Temperature Temperature Source Pulse Rate 107 H 103 H 108 H Pulse Rate [Left Apical] Pulse Rhythm Pulse Strength Respiratory Rate 22 20 22 Respiratory Effort / Characteristics Respiratory Depth Respiratory Pattern Blood Pressure 119/77 116/81 116/76 Blood Pressure [Left Arm] Blood Pressure Mean 82 86 85 Blood Pressure Mean [Left Arm] Blood Pressure Position Pulse Oximetry 94 93 94 Oxygen Delivery Method Room Air Room Air Room Air Oxygen Flow Rate Sepsis Recent Fever Within 48 Hours Sepsis New/Unexplained Change in Mental Status Sepsis Action Taken by Nursing Oxygen Flow Rate - Titration Pulse Oximetry Post Tiitration 01/03/25 14:50 01/03/25 15:17 Temperature Temperature Source Pulse Rate Pulse Rate [Left Apical] 108 H Pulse Rhythm Pulse Strength Respiratory Rate 24 Respiratory Effort / Characteristics Non-Labored Spontaneous Respiratory Depth Normal Respiratory Pattern Regular Blood Pressure Blood Pressure [Left Arm] 128/73 Blood Pressure Mean Blood Pressure Mean [Left Arm] 91 Blood Pressure Position Pulse Oximetry 86 L 95 Oxygen Delivery Method Nasal Cannula Nasal Cannula Oxygen Flow Rate 2 Sepsis Recent Fever Within 48 Hours Sepsis New/Unexplained Change in Mental Status Sepsis Action Taken by Nursing Oxygen Flow Rate - Titration 2 Pulse Oximetry Post Tiitration 93 Home Medications Current Medication List: was personally reviewed by mn Laboratory Data Attestation: I reviewed the patient's lab results. 01/03/25 12:31 01/03/25 12:31 Lab Results 01/03/25 01/03/25 01/03/25 Range/Units 12:31 13:06 13:30 WBC 10.54 (4.8-10.8) K/ul RBC 4.88 (4.70-6.10) M/uL Hgb 15.8 (14.0-18.0) g/dl Hct 45.8 (42.0-52.0) % MCV 93.9 (80.0-100.0) fL MCH 32.4 (25.0-34.0) pg MCHC 34.5 (32.0-36.0) g/dL RDW Std Deviation 43.9 (36.4-46.3) fL RDW Coeff of Doris 12.8 (11.5-14.5) % Plt Count 225 (130-400) K/uL MPV 9.8 (9.4-12.4) fL Immature Gran % (Auto) 0.3 % Neut % (Auto) 80.3 % Lymph % (Auto) 7.8 % Hoke % (Auto) 11.1 % Eos % (Auto) 0.2 % Baso % (Auto) 0.3 % Neut # (Auto) 8.47 H (1.40-6.50) K/uL Lymph # (Auto) 0.82 L (1.20-3.40) K/uL Hoke # (Auto) 1.17 H (0.11-0.59) K/uL Eos # (Auto) 0.02 (0.00-0.50) K/uL Baso # (Auto) 0.03 (0.00-0.20) K/uL Immature Gran # (Auto) 0.03 (0.01-0.20) K/uL PT 11.4 (9.0-12.0) Seconds INR 1.1 (0.9-1.1) APTT 32 H (21-31) Seconds PTT Ratio 1.2 Sodium 135 L (136-145) mmol/L Potassium 4.8 (3.5-5.1) mmol/L Chloride 97 L (98-107) mmol/L Carbon Dioxide 29 (21-32) mmol/L Anion Gap 9 (3-11) BUN 21 (6-23) mg/dl Creatinine 1.42 H (0.6-1.4) mg/dl Est Cr Clr Drug Dosing 69.1 ml/min eGFR 58.72 BUN/Creatinine Ratio 14.8 (10-20) Glucose 152 H (70-99(Fasting)) mg/dl Lactate (0.4-2.0) mmol/L Calcium 9.8 (8.6-10.3) mg/dl Magnesium 1.8 (1.7-2.4) mg/dl Total Bilirubin 0.8 (0.2-1.0) mg/dl AST 27 (13-39) U/L ALT 17 (7-52) U/L Alkaline Phosphatase 60 (34-104) U/L Troponin I High Sens 10.7 (0-20) pg/ml C-Reactive Protein 17.98 H (0-0.5) mg/dl B-Natriuretic Peptide 84 (0-100) pg/ml Total Protein 8.0 (6.0-8.3) gm/dl Albumin 4.0 (3.4-5.0) gm/dl Globulin 4.0 (2.5-4.0) gm/dl Albumin/Globulin Ratio 1.0 (0.9-2) Adenovirus (PCR) Not Detected (NotDetected) B. pertussis DNA (PCR) Not Detected (NotDetected) B.parapertussis DNA PCR Not Detected (NotDetected) C. pneumoniae DNA (PCR) Not Detected (NotDetected) Coronavirus OC43 (PCR) Not Detected (NotDetected) Coronavirus HKU1 (PCR) Not Detected (NotDetected) Coronavirus 229E (PCR) Not Detected (NotDetected) SARS-CoV-2 (PCR) Not Detected (NotDetected) Coronavirus NL63 (PCR) Not Detected (NotDetected) Human Metapneumovir PCR Not Detected (NotDetected) Influenza Type A (PCR) Not Detected (NotDetected) Influenza Type B (PCR) Not Detected (NotDetected) M. pneumoniae (PCR) Not Detected (NotDetected) Parainfluenza 1 (PCR) Not Detected (NotDetected) Parainfluenza 2 (PCR) Not Detected (NotDetected) Parainfluenza 3 (PCR) Not Detected (NotDetected) Parainfluenza 4 (PCR) Not Detected (NotDetected) RSV (PCR) Not Detected (NotDetected) Entero/Rhino (PCR) Not Detected (NotDetected) 01/03/25 Range/Units 14:45 WBC (4.8-10.8) K/ul RBC (4.70-6.10) M/uL Hgb (14.0-18.0) g/dl Hct (42.0-52.0) % MCV (80.0-100.0) fL MCH (25.0-34.0) pg MCHC (32.0-36.0) g/dL RDW Std Deviation (36.4-46.3) fL RDW Coeff of Doris (11.5-14.5) % Plt Count (130-400) K/uL MPV (9.4-12.4) fL Immature Gran % (Auto) % Neut % (Auto) % Lymph % (Auto) % Hoke % (Auto) % Eos % (Auto) % Baso % (Auto) % Neut # (Auto) (1.40-6.50) K/uL Lymph # (Auto) (1.20-3.40) K/uL Hoke # (Auto) (0.11-0.59) K/uL Eos # (Auto) (0.00-0.50) K/uL Baso # (Auto) (0.00-0.20) K/uL Immature Gran # (Auto) (0.01-0.20) K/uL PT (9.0-12.0) Seconds INR (0.9-1.1) APTT (21-31) Seconds PTT Ratio Sodium (136-145) mmol/L Potassium (3.5-5.1) mmol/L Chloride (98-107) mmol/L Carbon Dioxide (21-32) mmol/L Anion Gap (3-11) BUN (6-23) mg/dl Creatinine (0.6-1.4) mg/dl Est Cr Clr Drug Dosing ml/min eGFR BUN/Creatinine Ratio (10-20) Glucose (70-99(Fasting)) mg/dl Lactate 1.0 (0.4-2.0) mmol/L Calcium (8.6-10.3) mg/dl Magnesium (1.7-2.4) mg/dl Total Bilirubin (0.2-1.0) mg/dl AST (13-39) U/L ALT (7-52) U/L Alkaline Phosphatase (34-104) U/L Troponin I High Sens (0-20) pg/ml C-Reactive Protein (0-0.5) mg/dl B-Natriuretic Peptide (0-100) pg/ml Total Protein (6.0-8.3) gm/dl Albumin (3.4-5.0) gm/dl Globulin (2.5-4.0) gm/dl Albumin/Globulin Ratio (0.9-2) Adenovirus (PCR) (NotDetected) B. pertussis DNA (PCR) (NotDetected) B.parapertussis DNA PCR (NotDetected) C. pneumoniae DNA (PCR) (NotDetected) Coronavirus OC43 (PCR) (NotDetected) Coronavirus HKU1 (PCR) (NotDetected) Coronavirus 229E (PCR) (NotDetected) SARS-CoV-2 (PCR) (NotDetected) Coronavirus NL63 (PCR) (NotDetected) Human Metapneumovir PCR (NotDetected) Influenza Type A (PCR) (NotDetected) Influenza Type B (PCR) (NotDetected) M. pneumoniae (PCR) (NotDetected) Parainfluenza 1 (PCR) (NotDetected) Parainfluenza 2 (PCR) (NotDetected) Parainfluenza 3 (PCR) (NotDetected) Parainfluenza 4 (PCR) (NotDetected) RSV (PCR) (NotDetected) Entero/Rhino (PCR) (NotDetected) Administered Medications Discontinued Medications Hydromorphone HCl (Hydromorphone Inj 0.5 Mg/0.5 Ml Syr) 0.5 mg IV NOW STA Stop: 01/03/25 14:20 Last Admin: 01/03/25 14:21 Dose: 0.5 mg Documented By: MAHIN Ceftriaxone Sodium (Rocephin) 2,000 mg in 50 mls @ 100 mls/hr IV NOW STA Stop: 01/03/25 13:50 Last Infusion: 01/03/25 15:21 Dose: Infused Documented By: [facility] Admin: 01/03/25 14:48 Dose: 100 mls/hr Documented By: MAHIN Morphine Sulfate (Morphine Sulfate 4 Mg/Ml 1 Ml Carp\\Vial) 4 mg IV NOW STA Stop: 01/03/25 13:21 Last Admin: 01/03/25 13:28 Dose: 4 mg Documented By: MAHIN Ondansetron HCl (Ondansetron Inj 2 Mg/Ml 2 Ml Vial) 4 mg IV NOW STA Stop: 01/03/25 13:21 Last Admin: 01/03/25 13:28 Dose: 4 mg Documented By: MAHIN Imaging Data Radiologist's Impression: Chest X-Ray 01/03/25 12:06 XR chest 1V not portable CLINICAL HISTORY: Chest pain, nonspecific COMPARISON STUDY: Chest radiograph March 07, 2023. FINDINGS: Left subclavian pacer is in place. Cardiomediastinal silhouette is stable. There are trace bilateral pleural effusions. There is no pneumothorax. There is pulmonary vascular congestion with possible mild pulmonary edema. A 5.5 cm right midlung opacity is present. IMPRESSION: 1. Pulmonary vascular congestion with possible mild pulmonary edema. Trace bilateral pleural effusions. 2. 5.5 cm right midlung opacity. Although this could represent fissural fluid, pneumonia could appear similar. Follow-up PA and lateral chest radiographs in one month to ensure resolution are recommended. ACT 112: Negative or not required by law. Electronically signed by: Killian Chase M.D. 01/03/2025 1:[address] 01/03/25 13:20 CT chest diagnostic wo con CT DOSE: 615. mGy.cm CLINICAL HISTORY: poss pneumonia or mass. Acute onset of right rib/chest pain TECHNIQUE: Multiaxial CT images of the chest were performed without contrast. Sagittal and coronal reconstructions were done. A dose lowering technique was utilized adhering to the principles of ALARA. COMPARISON STUDY: 09/24/2019 FINDINGS: There is a pleural-based wedge-shaped opacity in the periphery of the right upper lobe. This is associated with a small pleural effusion. There is nonspecific discoid atelectasis at the left lung base. There is paraseptal emphysema simulating a pneumothorax along the right lateral chest wall which can be seen in retrospect on the prior study. A small right upper lobe pulmonary nodule is unchanged. No new or progressive nodularity is present. The upper airway is unremarkable. There is no aortic aneurysm or pericardial effusion. There is no right rib or chest wall lesion identified. IMPRESSION: Pleural-based, wedge-shaped opacity in the right upper lobe associated with a small effusion. Cannot exclude pulmonary embolism. Recommend a PE protocol chest CT. ACT 112: Negative or not required by law. Electronically signed by: Kay Ansari M.D. 01/03/2025 2:16 PM Discharge Plan Visit Data Chief Complaint: Shortness of Breath/Dyspnea Stated Complaint: SOB, RIB HURTS WHEN BREATHING ED Provider: George Fowler Discharge Problem: SOB (shortness of breath), Pleuritic chest pain, Right-sided chest pain, Tachycardia, Abnormal chest CT, Anticoagulated Patient Disposition: Admitted As Inpatient Condition: Serious Forms Stand Alone Forms: [employer] Prescriptions Prescriptions: No Action (DME) pen needle, diabetic [BD Ultra-Fine Mini Pen Needle] 31 gauge x 3/16" needle See Dose Instructions .ROUTE .MEDSUPPLY Qty: 200 3RF Dose Instruction: As directed Rx Instructions: for use 2 times daily rosuvastatin 40 mg tablet 40 mg PO DAILY Qty: 30 2RF (DME) Dexcom G7 Sensor Device See Rx Instructions .Route Qty: 3 11RF Rx Instructions: Change sensor every 10 days dulaglutide 1.5 mg/0.5 mL pen injector 1.5 mg subcut Q7D Qty: 2 3RF insulin glargine-yfgn [Semglee(insulin glarg-yfgn)Pen] 100 unit/mL (3 mL) insulin pen 20 unit subcut BID Qty: 15 2RF cholecalciferol (vitamin D3) 1,250 mcg (50,000 unit) capsule 50,000 unit PO Q7D Qty: 8 0RF (DME) OneTouch Verio test strips Strip See Rx Instructions .ROUTE .MEDSUPPLY Qty: 10 Rx Instructions: Test blood sugar two times daily Eliquis 5 mg tablet 5 mg PO BID spironolactone 25 mg tablet 25 mg PO DAILY metoprolol succinate 50 mg tablet extended release 24 hr 50 mg PO DAILY Jardiance 10 mg tablet 10 mg PO DAILY aspirin [Adult Low Dose Aspirin] 81 mg tablet,delayed release (DR/EC) 81 mg PO DAILY acetaminophen 325 mg Tablet 650 mg PO Q4H PRN (Reason: fever or pain) Qty: 7 0RF nitroglycerin [Nitrostat] 0.4 mg Tablet, Sublingual 0.4 mg sublingual UD PRN (Reason: chest pain) Qty: 7 0RF Entresto 24-26 mg Tablet 1 tab PO BID Qty: 7 0RF Referrals Referrals: Kristin Nelson CRNP [Primary Care Provider] -
--- NOTE | 2025-01-03 14:18 | CT Scan Report ---
CT chest diagnostic wo con CT DOSE: 615. mGy.cm CLINICAL HISTORY: poss pneumonia or mass. Acute onset of right rib/chest pain TECHNIQUE: Multiaxial CT images of the chest were performed without contrast. Sagittal and coronal r econstructions were done. A dose lowering technique was utilized adhering to the principles of ALARA. COMPARISON STUDY: 09/24/2019 FINDINGS: There is a pleural-based wedge-shaped opacity in the periphery of the right upper lobe. Thi s is associated with a small pleural effusion. There is nonspecific discoid atelectasis at the left l jesse base. There is paraseptal emphysema simulating a pneumothorax along the right lateral chest wall which can be seen in retrospect on the prior study. A small right upper lobe pulmonary nodule is unch anged. No new or progressive nodularity is present. The upper airway is unremarkable. There is no aortic aneurysm or pericardial effusion. There is no ri ght rib or chest wall lesion identified. IMPRESSION: Pleural-based, wedge-shaped opacity in the right upper lobe associated with a small effus ion. Cannot exclude pulmonary embolism. Recommend a PE protocol chest CT. ACT 112: Negative or not required by law. Electronically signed by: Kay Ansari M.D. 01/03/2025 2:16 PM
[2025-01-03] MEDS: HYDROmorphone INJ 0.5 MG/0.5 ML SYR IV STA (14:21)
[2025-01-03 14:33] LABS: Adenovirus PCR Not Detected (NotDetected); Bordetella parapertussis PCR Not Detected (NotDetected); Bordetella pertussis PCR Not Detected (NotDetected); Chlamydia pneumoniae PCR Not Detected (NotDetected); Coronavirus 229E PCR Not Detected (NotDetected); Coronavirus CoV-2 (COVID19)PCR Not Detected (NotDetected); Coronavirus HKU1 PCR Not Detected (NotDetected); Coronavirus NL63 PCR Not Detected (NotDetected); Coronavirus OC43PCR Not Detected (NotDetected); Human Metapneumovirus PCR Not Detected (NotDetected); Influenza A PCR Not Detected (NotDetected); Influenza B PCR Not Detected (NotDetected); Mycoplasma pneumoniae PCR Not Detected (NotDetected); Parainfluenza Virus 1 PCR Not Detected (NotDetected); Parainfluenza Virus 2 PCR Not Detected (NotDetected); Parainfluenza Virus 3 PCR Not Detected (NotDetected); Parainfluenza Virus 4 PCR Not Detected (NotDetected); Respiratory Syncytial VirusPCR Not Detected (NotDetected); Rhinovirus/Enterovirus PCR Not Detected (NotDetected)
[2025-01-03 14:39] LABS: Magnesium 1.8 mg/dl (1.7-2.4)
[2025-01-03] MEDS ORDERED: HYDROmorphone INJ 0.5 MG/0.5 ML SYR IV PRN (14:41)
[2025-01-03] MEDS: cefTRIAXone SODIUM 2,000 MG/50 ML BAG IV STA (14:48)
--- NOTE | 2025-01-03 14:48 | History & Physical Report ---
Date of Service January 03, 2025 Assessment & Plan (1) Rib pain: Plan: Shortness of breath, dyspnea. Suspect pneumonia with parapneumonic effusion CT-C with pleural-based wedge-shaped opacity in right upper lobe and with small effusion. PE is not excluded - Sudden onset of pain 3 days ago, progressive pain limiting breathing. +dyspnea. Has had chills and cough. No fever No leukocytosis. Patient has had a cough, pain is worse on cough. Initially not hypoxic on assessment however is with some pleurisy on reassessment has developed hypoxia on 2 L Rocephin/azithromycin continued for empiric coverage of potential underlying pneumonia, procalcitonin and sputum culture have been added Troponin and BNP are not elevated. EKG without ischemic change Patient is anticoagulated with Eliquis. Has solitary kidney with CKD and current creatinine slightly above his normal baseline./Benefits of CTA were discussed. Likelihood of PE is lower as he is anticoagulated but is not excluded given wedge-shaped opacity on Noncon CT. Angiography is with risk of renal injury and higher risk given his CKD and solitary kidney due to history of nephrectomy. On shared decision making we will temporarily switch to Lovenox versus heparin, treat for potential infectious source, obtain Dopplers to evaluate for DVT and make further decisions based on progression.? Exudative effusion. H&H trended for stability. Renal function is upper limit of normal, no JVD or lower extremity edema signs of assessment and no pulmonary edema on CT. Diuresis not currently indicated Pulmonary consulted. Reviewed imaging agree with plan above. Will follow could consider bronchoscopy if needed. Appreciate recommendations. 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 Consult placed - heparin gtt no bolus started at next scheduled eliquis time (~9pm). Can hold 6 hours prior to any bronchoscopy if recommended in followup HFrEF with ICD/pacemaker CTchest with wedge-shaped opacity. Small effusion is noted Continue Entresto, metoprolol, rosuvastatin, spironolactone, aspirin - No pulmonary edema on CT IDDM Home glargine 20 units twice daily continued Dulaglutide held SSI goal BSG [id number] History of right nephrectomy, CKD 3 Trend creatinine daily Renally dose medications as needed History of PE 2021, on Eliquis since. Did resolve after treatment with Eliquis Switched to heparin GTT temporarily as noted DVT prophylaxis: Anticoagulated Diet: Heart healthy Disposition: M/T (2) History of renal cell carcinoma: (3) H/O kidney removal: (4) Ischemic cardiomyopathy: (5) Chronic kidney disease, stage 3a: (6) Tobacco abuse: History of Present Illness Primary Care Provider: TIMBO Hernandez Abel is a 54-year-old male past medical history of right nephrectomy 2018 and subsequent CKD 3, type II DM, hypertension, triple-vessel CAD and ischemic cardiomyopathy with ICD last echo EF 35-40%, anticoagulation with Eliquis who presented to the emergency department with 3 weeks of cough slowly improving but with some chest discomfort on his right chest over the last 4 days. Patient has had increased pain on deep inspiration and with coughing, does have some worsened pain with movement. He endorses dyspnea. He is anticoagulated on Eliquis with which he is compliant Has a history of HFrEF with ICD/pacemaker On ER assessment O2 sat is greater than 90% on room air, mild tachycardia. Chest x-ray shows pulmonary vascular congestion with mild pulmonary edema and trace effusions, 5.5 cm right midlung opacity was noted. Follow-up CTchest noncontrast showed pleural-based wedge-shaped opacity in right upper lobe associated with a small effusion. Wedge infarct from a pulmonary embolism is not excluded and follow-up CTPE was recommended. Patient is anticoagulated at baseline with Eliquis, and has a solitary kidney with CKD and current creatinine is 1.42, within baseline of around 1.21.5 on admission. BioFire negative ____ Abel reports that he has a history of RCC s/p nephrectomy without residual disease or ongoing chemotherapy. He reports that he presented to the ER after he felt a pop or tearing motion at his right anterior ribs and since then has had slowly progressive pain at that area. Endorses pain on deep breathing and some cough. Some chill over the weekend, no fevers. He reports he is short of breath but is not sure if this is because he is breathing shallow due to pain or if he would be short of breath if he could take a full breath or not. No sputum change. No diarrhea, constipation, other myalgias. Denies chest pain other than his rib pain. No recent steroid use. Does have a history of heart failure, denies recent orthopnea, leg swelling and exacerbation although has gotten Lasix intermittently in the past does not take this regularly at home and has not needed this recently. Medical History: Reviewed Medications: Reviewed Surgical History: Reviewed Family history: Reviewed Allergies: Reviewed Social History: Reviewed Code Status:Full Code Allergies Allergy/AdvReac Type Severity Reaction Status Date / Time No Known Allergies Allergy Verified 11/25/24 11:21 Home Medications Medication Instructions Recorded Confirmed Type BD Ultra-Fine Mini Pen Needle 31 #200 ea 06/30/19 11/25/24 Rx gauge x 3/16" (pen needle, diabetic) blood sugar diagnostic (OneTouch #10 ea 08/13/21 11/25/24 History Verio test strips) acetaminophen 325 mg tablet 650 mg (2 x 325 mg) PO Q4H PRN 11/11/22 11/25/24 Rx fever or pain #7 tabs nitroglycerin 0.4 mg sublingual 0.4 mg sublingual UD PRN chest 11/11/22 11/25/24 Rx tablet (Nitrostat) pain #7 tabs sacubitril 24 mg-valsartan 26 mg 1 tab PO BID #7 tabs 11/11/22 11/25/24 Rx tablet (Entresto) apixaban 5 mg tablet (Eliquis) 5 mg PO BID 01/17/23 11/25/24 History aspirin 81 mg tablet,delayed 81 mg PO DAILY 01/17/23 11/25/24 History release (Adult Low Dose Aspirin) empagliflozin 10 mg tablet 10 mg PO DAILY 01/17/23 11/25/24 History (Jardiance) metoprolol succinate 50 mg 50 mg PO DAILY 01/17/23 11/25/24 History tablet,extended release 24 hr spironolactone 25 mg tablet 25 mg PO DAILY 01/17/23 11/25/24 History rosuvastatin 40 mg tablet 40 mg PO DAILY #30 tabs 09/18/23 11/25/24 Rx blood-glucose sensor ([employer] G7 #3 ea 09/24/23 11/25/24 Rx Sensor device) dulaglutide 1.5 mg/0.5 mL 1.5 mg (0.5 mL) subcut Q7D #2 mL 08/04/24 11/25/24 Rx subcutaneous pen injector insulin glargine-yfgn 100 unit/mL 20 unit (0.2 mL) subcut BID #15 mL 08/10/24 11/25/24 Rx (3 mL) subcutaneous pen (Semglee (insulin glargine-yfgn) Pen) cholecalciferol (vitamin D3) 1,250 50,000 unit PO Q7D #8 caps 11/29/24 Rx mcg (50,000 unit) capsule Past Med/Surg History Problem List (Updated 01/03/25 @ 15:52 by Cl Canales MD) Hemoptysis Acute hypoxic respiratory failure Pleural effusion, right Community acquired pneumonia Emphysema lung Pleurisy Rib pain Erythrocytosis History of renal cell carcinoma H/O kidney removal Ischemic cardiomyopathy Depression History of myocardial infarction NSI October 2022 Tobacco abuse Chronic kidney disease, stage 3a Hypertension Dyslipidemia Overweight Vitamin D deficiency Diabetic nephropathy associated with type 2 diabetes mellitus Diabetes type 2, controlled Medical History Quadriceps tendon rupture Surgical History History of right nephrectomy History of repair of ACL Hx of adenoidectomy Family History Father Lung cancer Brain cancer Mother Breast cancer Diabetes Other No known problems Social History Smoking Status: Former smoker Tobacco Type: Cigarettes Cigarettes Per Day: 1 PPD; Second Hand Exposure: Yes; Do You Dip or Chew Tobacco: No; Hx Alcohol Use: Yes Alcohol type: beer Hx Substance Use: No Preferred Language: Armenian Communication Ability: Effective Visual Impairment: No Limitations Hearing Ability: Normal 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 NAD. Cooperative. HEENT: Atraumatic, normocephalic. Pulm: +bibasilar crackles R>L. +pain on inspiration at R axillary/anterior lower ribs. Cardiac: RRR, -mrg. Radial pulses intact and symmetrical. Abdominal: Nontender, nondistended, soft. BS present. Ext: warm, dry. No edema Results & Data Results & Data Vital Signs (Past 12 Hours) Vital Signs Temp Pulse Resp BP Pulse Ox O2 Del Method 01/03/25 14:00 103 H 20 116/81 93 Room Air 01/03/25 13:30 107 H 22 119/77 94 Room Air 01/03/25 13:18 107 H 01/03/25 12:55 95 Room Air 01/03/25 12:00 37.3 C 119 H 18 148/98 H 92 Room Air PG Care Time/CCT Total # of Minutes Spent Total Time Spent with Patient: Total time spent is greater than 50% in coordination of care (as documented) at patient's floor/unit and/or counseling patient: Coding Level of Care Code 46653 INT INP/OBS CARE 3/75MIN Diagnoses Rib pain R07.81 History of renal cell carcinoma Z85.528 H/O kidney removal Z90.5 Ischemic cardiomyopathy I25.5 Chronic kidney disease, stage 3a N18.31 Tobacco abuse Z72.0
[2025-01-03] MEDS ORDERED: GLUCOSE 40% GEL 15 GM TUBE PO PRN (15:10)
[2025-01-03] MEDS ORDERED: GLUCAGON FOR INJ 1 MG VIAL SQ PRN (15:10)
[2025-01-03] MEDS ORDERED: CARBOHYDRATES FOR HYPOGLYCEMIA PO PRN (15:10)
[2025-01-03] MEDS ORDERED: HYDROmorphone INJ 1 MG/ML SYRINGE IV PRN (15:10)
[2025-01-03] MEDS ORDERED: ACETAMINOPHEN 325 MG TAB PO PRN (15:10)
[2025-01-03] MEDS ORDERED: GLUCOSE 10 TAB/TUBE PO PRN (15:10)
[2025-01-03] MEDS ORDERED: DEXTROSE 50% 50 ML SYRINGE IV PRN (15:10)
--- NOTE | 2025-01-03 15:12 | Pulmonary Consultation ---
Date of Consultation January 03, 2025 Assessment & Plan (1) Community acquired pneumonia: (2) Pleural effusion, right: (3) Acute hypoxic respiratory failure: (4) Pleurisy: (5) Emphysema lung: (6) Hemoptysis: Plan His overall picture is somewhat unusual given his severe pleurisy and prolonged symptoms. He lacks white count, but has mild neutrophilia. He also has mild lymphopenia. He notes that his cat was sick with a respiratory illness about 1 week prior to him being sick. 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 Atypical infections certainly are of concern. Will continue with Rocephin and azithromycin for the time being. Will consult ID to see if the patient needs broader atypical coverage with a fluoroquinolone or other antibiotic/antifungal. Pulmonary embolism seems to be less likely as the patient is anticoagulated already for history of LV thrombus. Patient did note some mild hemoptysis earlier in the day which is likely related to bronchopneumonia, but difficult to rule out completely the possibility of PE. Would have a low threshold for CTA of his chest should have some mopped assist worsen. Please obtain MRSA screen, sputum cultures and a urine Legionella antigen. Fortunately, respiratory viral panel was negative. Recommend ID consult. Pulmonary will continue to follow along with you. Thank you for the consult. Patient and agreement with the plan as discussed. Patient's girlfriend was also present during the discussion of the diagnosis and treatment plan and is also in agreement. Discussed with hospitalist service who is in agreement with the plan. History of Present Illness Reason for Consultation: Hypoxia and abnormal CT chest History of Present Illness 54-year-old male with a past medical renal cell carcinoma status post nephrectomy, insulin-dependent diabetes mellitus, history of ischemic cardiomyopathy with an EF of 35 to 40%, hypertension, hyperlipidemia, diabetes mellitus and a history of LV apical thrombus on Eliquis who presented to the ER due to sudden pleuritic chest pain on the right side that occurred about 4 days ago. He has been having ongoing coughing for about 3 weeks. The coughing has become more intense and he has been feeling short of breath and fatigue. Patient notes that he is very compliant with Eliquis. Patient did note some dark-colored blood when coughing. Patient had a CT of his chest completed today. CT revealed a pleural-based wedge-shaped opacity in the periphery of the upper lobe and a small associated pleural effusion. PE protocol CT chest was recommended by radiology. Labs significant for mild lymphopenia and neutrophilia. Respiratory viral panel was negative for everything. Patient was given a dose of Rocephin in the ER. 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 He has 2 dogs and 1 cat at home. He notes that there has been some standing water in his basement. His cat recently had a respiratory illness about 1 week ago. Allergies Allergy/AdvReac Type Severity Reaction Status Date / Time No Known Allergies Allergy Verified 11/25/24 11:21 Home Medications Medication Instructions Recorded Confirmed Type BD Ultra-Fine Mini Pen Needle 31 #200 ea 06/30/19 11/25/24 Rx gauge x 3/16" (pen needle, diabetic) blood sugar diagnostic (OneTouch #10 ea 08/13/21 11/25/24 History Verio test strips) acetaminophen 325 mg tablet 650 mg (2 x 325 mg) PO Q4H PRN 11/11/22 11/25/24 Rx fever or pain #7 tabs nitroglycerin 0.4 mg sublingual 0.4 mg sublingual UD PRN chest 11/11/22 11/25/24 Rx tablet (Nitrostat) pain #7 tabs sacubitril 24 mg-valsartan 26 mg 1 tab PO BID #7 tabs 11/11/22 11/25/24 Rx tablet (Entresto) apixaban 5 mg tablet (Eliquis) 5 mg PO BID 01/17/23 11/25/24 History aspirin 81 mg tablet,delayed 81 mg PO DAILY 01/17/23 11/25/24 History release (Adult Low Dose Aspirin) empagliflozin 10 mg tablet 10 mg PO DAILY 01/17/23 11/25/24 History (Jardiance) metoprolol succinate 50 mg 50 mg PO DAILY 01/17/23 11/25/24 History tablet,extended release 24 hr spironolactone 25 mg tablet 25 mg PO DAILY 01/17/23 11/25/24 History rosuvastatin 40 mg tablet 40 mg PO DAILY #30 tabs 09/18/23 11/25/24 Rx blood-glucose sensor ([employer] G7 #3 ea 09/24/23 11/25/24 Rx Sensor device) dulaglutide 1.5 mg/0.5 mL 1.5 mg (0.5 mL) subcut Q7D #2 mL 08/04/24 11/25/24 Rx subcutaneous pen injector insulin glargine-yfgn 100 unit/mL 20 unit (0.2 mL) subcut BID #15 mL 08/10/24 11/25/24 Rx (3 mL) subcutaneous pen (Semglee (insulin glargine-yfgn) Pen) cholecalciferol (vitamin D3) 1,250 50,000 unit PO Q7D #8 caps 11/29/24 Rx mcg (50,000 unit) capsule Patient History Medical History Quadriceps tendon rupture Surgical History History of right nephrectomy History of repair of ACL Hx of adenoidectomy Family History Father Lung cancer Brain cancer Mother Breast cancer Diabetes Other No known problems Social History Smoking Status: Former smoker Tobacco Type: Cigarettes Cigarettes Per Day: 1 PPD; Second Hand Exposure: Yes; Do You Dip or Chew Tobacco: No; Hx Alcohol Use: Yes Alcohol type: beer Hx Substance Use: No Preferred Language: Luxembourger Communication Ability: Effective Visual Impairment: No Limitations Hearing Ability: Normal 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 Beliefs That Will Affect Care: None marital status: Single Current Living Situation: Significant Other current occupational status: employed 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 Patient is in no apparent distress. Patient is well-developed. Nasal cannula in place. Eyes: Pupils are equal round and reactive to light. Conjunctivae are normal. Anicteric sclera. Ears nose, mouth and throat: Mallampati class 2. Normal posterior oropharynx. Uvula is midline. Neck: Trachea is midline. Visual inspection is normal. Respiratory: Diminished lung sounds. Mild crackles in the right lower lobe. No wheezes. Cardiovascular: Regular rate and rhythm. No murmurs. No edema. Gastrointestinal: Normal bowel sounds, soft, nontender and nondistended. No hepatosplenomegaly noted. Musculoskeletal: No cyanosis. Patient is able to move all extremities. Strength is 5 out of 5 in the upper and lower extremities. Skin: No rashes, warm dry and intact. Neurologic: No obvious focal neurological deficits seen. Psychiatric: Alert and oriented x3 with a euthymic affect. Results & Data Results & Data Vital Signs (Past 12 Hours) Vital Signs Temp Pulse Resp BP Pulse Ox O2 Del Method 01/03/25 14:50 86 L Nasal Cannula 01/03/25 14:30 108 H 22 116/76 94 Room Air 01/03/25 14:00 103 H 20 116/81 93 Room Air 01/03/25 13:30 107 H 22 119/77 94 Room Air 01/03/25 13:18 107 H 01/03/25 12:55 95 Room Air 01/03/25 12:00 37.3 C 119 H 18 148/98 H 92 Room Air PG Care Time/CCT Total # of Minutes Spent Total Time Spent with Patient: Total time spent is greater than 50% in coordination of care (as documented) at patient's floor/unit and/or counseling patient: Coding Level of Care Code 07917 INT INP/OBS CARE 3/75MIN Diagnoses Community acquired pneumonia J18.9 Pleural effusion, right J90 Acute hypoxic respiratory failure J96.01 Pleurisy R09.1 Emphysema lung J43.9 Hemoptysis R04.2
[2025-01-03 15:56] LABS: C Reactive Protein 17.98 mg/dl (0-0.5)
[2025-01-03] MEDS: AZITHROMYCIN 250 MG TAB PO ONE (16:26)
[2025-01-03] MEDS: LIDOCAINE 5% 1 PATCH TD STA (16:26)
--- NOTE | 2025-01-03 16:44 | Ultrasound Report ---
Clinical History: Shortness of breath Technique: Venous ultrasound evaluation was performed utilizing grayscale, color Doppler and wave form evaluation. Images were also obtained with and without compression Findings: The bilateral common femoral, superficial femoral, popliteal, and visualized calf veins demonstrate normal anechoic lumens with full compressibility. Normal flow is seen on color Doppler images. Expected waveforms were produced with augmentation maneuvers Impression: No evidence of deep venous thrombosis Electronically signed by Felipe Benjamin 01-03-2025 4:42 PM
[2025-01-03] MEDS: Heparin IV Adult Wt-Based Standard *NO* INITIAL Bolus Protocol IV STA (17:05)
[2025-01-03] MEDS: INSULIN ASPART PER UNIT CHARGE SC SCH (18:45)
--- OUTSIDE RECORDS SUMMARY | 2025-01-03 18:51 | External Medical Summary | Continuity of Care Document ---
Author Name Unknown Organization [facility] [address] [place] [address] MARIA LUISA BARNETT [id number] Care Team Providers Care Prizer Hand Name Role Phone Kristin Nelson Primary Care Physician [phone] [id number] Date(s): 12/17/24 - 12/17/24 [facility] [place] - [address], [address] MAR[place] LUISA Sarah [address] [phone] Discharge Disposition: Home or Self Care Attending Physician: DO Gutierrez Jason D Referring Physician: DO Gutierrez Jason D Allergies, Adverse Reactions, Alerts No Known Allergies Medications acetaminophen Start: 11/15/22 10:48:00 AM EST, 650 mg =, PO, q4h, PRN: fever/mild pain (1-3) Start Date: 11/15/22 Status: Ordered Aspirin Low Dose 81 mg oral delayed release tablet Start: 12/13/24 9:30:00 AM EST, 1 tab, PO, Daily, Disp# 90 tab, Refills: 3, Pharmacy: [facility]/pharmacy #[id number] Start Date: 12/13/24 Status: Ordered Eliquis 5 mg oral tablet Start: 12/15/23 9:55:00 AM EST, 1 tab, PO, bid, Disp# 60 tab, Refills: 11, Pharmacy: [id number] Start Date: 12/15/23 Status: Ordered Entresto 24 mg-26 mg oral tablet Start: 12/15/23 9:55:00 AM EST, 1 tab, PO, bid, Disp# 60 tab, Refills: 11, Pharmacy: [id number] Start Date: 12/15/23 Status: Ordered Jardiance 10 mg oral tablet Start: 10/18/24 10:07:00 AM EST, 1 tab, PO, qAM, Disp# 90 tab, Refills: 3, Pharmacy: [facility] Start Date: 10/18/24 Status: Ordered Lantus Solostar Pen 100 units/mL subcutaneous solution Start: 11/11/22 8:38:00 PM EST, 20 unit =, subQ, bid, takes as needed now, d/t BG being lower with Jardiance and trulicty Start Date: 11/11/22 Status: Ordered Metoprolol Succinate ER 50 mg oral tablet, extended release Start: 10/18/24 10:06:00 AM EST, 1 tab, PO, Daily, Disp# 90 tab, Refills: 3, Pharmacy: [facility] Start Date: 10/18/24 Status: Ordered omeprazole 20 mg oral delayed release capsule Start: 11/20/22 3:08:00 PM EST, 1 cap, PO, Daily, as needed only Start Date: 11/20/22 Status: Ordered rosuvastatin 40 mg oral tablet Start: 08/03/24 12:41:00 PM EDT, 1 tab, PO, qhs, Disp# 90 tab, Refills: 3, Pharmacy: [facility] Start Date: 08/03/24 Status: Ordered spironolactone 25 mg oral tablet Start: 10/18/24 10:06:00 AM EST, 1 tab, PO, Daily, Disp# 90 tab, Refills: 3, Pharmacy: [facility] Start Date: 10/18/24 Status: Ordered Trulicity Pen 1.5 mg/0.5 mL subcutaneous solution Start: 04/09/23 2:49:00 PM EDT, 1.5 mg =, subQ, q7days, Disp# 2 mL Start Date: 04/09/23 Status: Ordered Vitamin D3 Start: 11/11/22 8:38:00 PM EST, See Instructions, 50,000 units po q 7 days Start Date: 11/11/22 Status: Ordered Problem List Condition Confirmation Course Effective Dates Status H ealth Status Informant ICD (implantable cardioverter-defibril lator) in place Confirmed Active CKD (chronic kidney disease) Confirmed Active S/p nephrectomy Confirmed Active Hyperlipidemia Confirmed Active Hypertension Confirmed Active Insulin dependent type 2 diabetes mellitus Confirmed Active Ischemic cardiomyopathy Confirmed Active Cancer of kidney Confirmed Active Non compliance w medication regimen Confirmed Active Current smoker Confirmed Active 3-vessel CAD Confirmed Active Social History Social History Type Response Smoking Status Former Smoker, quit > 1 yr Sex Sex Representation Male (finding) Patient Care team information Care Team Personnel Name: Randee Coppola Michele C Position: Pharmacist Schedule II Member Role: Pharmacy - Lifetime Address: [facility] [address] [place] [address] [place] Name: TIMBO Nelson Rebecca Linn Position: Referring Member Role: Primary Care Provider Address: [address] [address] Name: Randee Mcgarry Ann Position: Pharmacist Member Role: Pharmacy - Lifetime Care Team Related Persons Name: ALCIDES STACY Name: TOM DEL RIO
[2025-01-03] MEDS: LANTUS PER UNIT CHARGE SQ SCH (21:53)
[2025-01-03] MEDS: VALSARTAN/SACUBITRIL 26/24MG TAB PO SCH (21:56)
[2025-01-03] MEDS: HYDROmorphone INJ 0.5 MG/0.5 ML SYR IV PRN (21:57)
[2025-01-03] MEDS: HEPARIN 25000 UNIT/500 ML D5W 25,000 UNITS/500 ML BAG IV SCH (21:58)
[2025-01-04] MEDS ORDERED: DICLOFENAC SOD 1% GEL 100 GM TUBE EXT PRN (04:26)
[2025-01-04 04:41] LABS: Basophils # (auto) 0.03 K/uL (0.00-0.20); Basophils % (auto) 0.3 %; Eosinophils # (auto) 0.05 K/uL (0.00-0.50); Eosinophils % (auto) 0.5 %; Hematocrit (blood only) 42.8 % (42.0-52.0); Hemoglobin 14.8 g/dl (14.0-18.0); Immature Granulocytes # (auto) 0.06 K/uL (0.01-0.20); Immature Granulocytes % (auto) 0.6 %; Lymphocytes # (auto) 1.27 K/uL (1.20-3.40); Lymphocytes % (auto) 12.3 %; Mean Corpuscular Hgb Conc 34.6 g/dL (32.0-36.0); Mean Corpuscular Volume 95.3 fL (80.0-100.0); Mean Platelet Volume 9.9 fL (9.4-12.4); Monocytes # (auto) 1.29 K/uL (0.11-0.59); Monocytes % (auto) 12.5 %; Neutrophils # (auto) 7.65 K/uL (1.40-6.50); Neutrophils % (auto) 73.8 %; Platelet Count 204 K/uL (130-400); RDW Coefficient of Variation 12.8 % (11.5-14.5); RDW Standard Deviation 45.1 fL (36.4-46.3); Red Blood Count 4.49 M/uL (4.70-6.10); White Blood Count 10.35 K/ul (4.8-10.8)
[2025-01-04] MEDS: MoRPHine SULFATE 2 MG/ML CARP IV STA (04:42)
[2025-01-04] MEDS: ONDANSETRON INJ 2 MG/ML 2 ML VIAL IV STA (04:43)
[2025-01-04 04:55] LABS: ANTI-Xa, UFH(UnfractionatedHep 0.54 IU/ml (0.3-0.7); Partial Thromboplastin Ratio 1.6; Partial Thromboplastin Time 42 Seconds (21-31)
[2025-01-04 05:08] LABS: BUN Creatinine Ratio 14.7 (10-20); C Reactive Protein 26.96 mg/dl (0-0.5); Calcium 8.9 mg/dl (8.6-10.3); Creatinine Clr Calc Pharmacy 72.2 ml/min; Potassium 4.1 mmol/L (3.5-5.1)
[2025-01-04] MEDS: LIDOCAINE 5% 1 PATCH TD STA (05:21)
[2025-01-04] MEDS ORDERED: VANCOMYCIN CONSULT ACTIVE PRN (07:01)
[2025-01-04] MEDS ORDERED: AMPICILLIN/SULBACTAM SOD 1,500 MG/100 ML BAG IV SCH (07:30)
[2025-01-04] MEDS: METOPROLOL SUCC 50MG EXT REL TAB PO SCH (08:20)
[2025-01-04] MEDS: AMPICILLIN/SULBACTAM SOD 3,000 MG/100 ML BAG IV SCH (08:32)
--- NOTE | 2025-01-04 08:35 | XRay Report ---
XR chest 1V portable CLINICAL HISTORY: Pneumonia. COMPARISON STUDY: Chest radiograph and chest CT January 03, 2025. FINDINGS: Left subclavian pacer/AICD is in place. The heart is mildly enlarged. Small right and trace left pleural effusions are present. Right midlung airspace opacity has progressed. There is mild pul monary edema. No pneumothorax. IMPRESSION: 1. Progression of right midlung airspace opacity suggestive of pneumonia. Radiographic follow-up to e nsure resolution is recommended. 2. Cardiomegaly. Mild pulmonary edema with small right and trace left pleural effusions. ACT 112: Negative or not required by law. Electronically signed by: Killian Chase M.D. 01/04/2025 8:33 AM
[2025-01-04] MEDS: SPIRONOLACTONE 25 MG TAB PO SCH (08:38)
[2025-01-04] MEDS: ASPIRIN 81 MG ECTAB PO SCH (08:38)
[2025-01-04] MEDS: ROSUVASTATIN CALCIUM 20 MG TAB PO SCH (08:39)
[2025-01-04] MEDS: AZITHROMYCIN 250 MG TAB PO SCH (08:42)
--- NOTE | 2025-01-04 09:10 | Infectious Disease Consult ---
Date of Consultation January 04, 2025 Assessment & Plan (1) Community acquired pneumonia: (2) Pleural effusion, right: (3) Hemoptysis: (4) H/O kidney removal: (5) Diabetes type 2, controlled: Plan 54yo M with h/o RCC s/p right nephrectomy (no residual disease, not on chemo), IDDM, ischemic CM, HTN, HLD, LV apical thrombus on eliquis who presented on 01/03 with pleuritic chest pain on the right x 4 days along with hemoptysis. He had a cold 2-3 weeks ago and has had a residual cough since then. On admission, he was afebrile, tachycardic, on RA. Initial labs with WBC 10.54, Cr 1.42, LFT wnl. CRP 17.98. PCT 0.16. RPP negative. CXR with pulmonary vascular congestion with possible mild pulmonary edema, trace bl pleural effusions; 5.5 cm right midlung opacity. CT chest w/o contrast showed pleural-based, wedge-shaped opacity in the right upper lobe associated with a small effusion. LE doppler neg for DVT bl. He was started on CTX/azithro. Seen by pulmonary. CXR on 01/04 with progression of right midlung airspace opacity suggestive of PNA. Abx have been changed to vanc/Unasyn and azithro. ID consulted 01/04. No significant TB exposures, no night sweats, weight loss. It doesnt seem like he has significant exposure to migrant workers and minimal exposure to standing water (some flooding in basement yearly in girlfriends home, doesnt spend much time in that basement). No other travel or other significant exposures reported. There was mention of cat being sick recently, but unlikely for anything to have been transmitted for a respiratory infection. Would continue empiric coverage as already doing, likely only needs coverage for CAP. His abx were changed to vanc/Unasyn, which we can continue. He is not immunocompromised so I do not think he needs antifungal coverage. CT chest mentioned a wedge-shaped opacity and mention of ruling out PE. He is on Eliquis though, will defer this to primary team. # RUL opacity with associated small effusion c/f PNA (imaging noted wedge-shape, r/o PE) # Recent upper respiratory infection 2-3 weeks ago # Diabetes # h/o right nephrectomy - f/u sputum cx, urine legionella Ag, and MRSA screen - will defer to primary team regarding r/o of PE - on vancomycin stop if negative MRSA - continue on azithromycin stop if legionella is negative - continue unasyn ID will continue to follow. If questions or concerns, contact via TigerText or Infectious Disease Call Center . Tanvi Cordero MD [facility], Division of Infectious Diseases IDConnect: [phone] Consultation Information Consultation was provided via telemedicine using two-way real-time interactive t elecommunication between the patient and the telemedicine provider. For the duration of the visit, the provider was performing the assessment from a different facility than the patient. This includesuse of bluetooth stethoscope forauscultationperformed by the telepresenter that the telemedicine provider can hear if described in the physical exam. Freezer Machine Operator contact information: Please call ID Connect Call Center . (Phone Number For Physician Use Only) After establishing a telemedicine visit, patient was: Patient was verified with two unique identifiers, Patient/authorized rep acknowledged consent and understanding and Gave permission to continue telehealth session Time Spent with Patient: Initial => 75 min History of Present Illness Reason for Consultation: ?PNA with effusion, exposure to standing water Attending Physician: Abhijeet Salcedo MD History of Present Illness 54yo M with h/o RCC s/p right nephrectomy (no residual disease, not on chemo), IDDM, ischemic CM, HTN, HLD, LV apical thrombus on eliquis who presented on 01/03 with pleuritic chest pain on the right x 4 days and ongoing cough x 3 weeks. Also with SOB and fatigue. He reported that he felt a pop or tearing motion at his right anterior ribs and since then has had slowly progressive pain at that area. Endorses pain on deep breathing and some cough. He reports he is short of breath but is not sure if this is because he is breathing shallow due to pain or if he would be short of breath if he could take a full breath or not. Did note some dark-colored blood when coughing. No fevers, noted some chills. No diarrhea, myalgias. On admission, he was afebrile, tachycardic, on RA. Initial labs with WBC 10.54, Cr 1.42, LFT wnl. CRP 17.98. PCT 0.16. RPP negative. CXR with pulmonary vascular congestion with possible mild pulmonary edema, trace bl pleural effusions; 5.5 cm right midlung opacity. CT chest w/o contrast showed pleural-based, wedge-shaped opacity in the right upper lobe associated with a small effusion. LE doppler neg for DVT bl. He was started on CTX/azithro. Seen by pulmonary. CXR on 01/04 with progression of right midlung airspace opacity suggestive of PNA. He was started on empiric abx. ID consulted 01/04. On evaluation, patient seems annoyed at having to answer questions. He says he had a cold 2-3 weeks ago, no fevers at that time but had a sore throat and nonproductive cough. Four days ago, he developed right chest pain with bloody sputum production. He has not had any fevers. Does note decreased appetite since Friday. No shortness of breath. He does not have any night sweats or weight loss. No h/o incarceration. 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 I asked again how he is exposed to them and says he only comes [id number] with them when he has to sign some papers briefly, but that is about it. 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 He lives with his girlfriend who at times has some flooding in the basement and needs to be drained, but this is once in a year. He otherwise has not had any travel. No exposures to anyone with known active TB. No abdominal pain, vomiting or diarrhea. No problems swallowing. Allergies Allergy/AdvReac Type Severity Reaction Status Date / Time No Known Allergies Allergy Verified 11/25/24 11:21 Home Medications Medication Instructions Recorded Confirmed Type BD Ultra-Fine Mini Pen Needle 31 #200 ea 06/30/19 11/25/24 Rx gauge x 3/16" (pen needle, diabetic) blood sugar diagnostic (OneTouch #10 ea 08/13/21 11/25/24 History Verio test strips) acetaminophen 325 mg tablet 650 mg (2 x 325 mg) PO Q4H PRN 12/26/22 02/17/25 Rx fever or pain #7 tabs nitroglycerin 0.4 mg sublingual 0.4 mg sublingual UD PRN chest 11/11/22 01/03/25 Rx tablet (Nitrostat) pain #7 tabs sacubitril 24 mg-valsartan 26 mg 1 tab PO BID #7 tabs 11/11/22 01/03/25 Rx tablet (Entresto) apixaban 5 mg tablet (Eliquis) 5 mg PO UD 01/17/23 01/03/25 History aspirin 81 mg tablet,delayed 81 mg PO DAILY 01/17/23 01/03/25 History release (Adult Low Dose Aspirin) empagliflozin 10 mg tablet 10 mg PO DAILY 01/17/23 01/03/25 History (Jardiance) metoprolol succinate 50 mg 50 mg PO DAILY 01/17/23 01/03/25 History tablet,extended release 24 hr spironolactone 25 mg tablet 25 mg PO DAILY 01/17/23 01/03/25 History rosuvastatin 40 mg tablet 40 mg PO DAILY #30 tabs 09/18/23 01/03/25 Rx blood-glucose sensor (Dexcom G7 #3 ea 09/24/23 11/25/24 Rx Sensor device) dulaglutide 1.5 mg/0.5 mL 1.5 mg (0.5 mL) subcut Q7D #2 mL 08/04/24 01/03/25 Rx subcutaneous pen injector cholecalciferol (vitamin D3) 1,250 50,000 unit PO Q7D #8 caps 11/29/24 01/03/25 Rx mcg (50,000 unit) capsule insulin glargine-yfgn 100 unit/mL 20 unit subcut UD 01/03/25 01/03/25 History (3 mL) subcutaneous pen (Semglee (insulin glargine-yfgn) Pen) Patient History Medical History Quadriceps tendon rupture Surgical History History of right nephrectomy History of repair of ACL Hx of adenoidectomy Family History Father Lung cancer Brain cancer Mother Breast cancer Diabetes Other No known problems Social History Smoking Status: Current every day smoker Tobacco Type: Cigarettes Cigarettes Per Day: 1 PPD; Second Hand Exposure: No; Do You Dip or Chew Tobacco: No; Tobacco Cessation Education Requested by Patient: No Hx Alcohol Use: No Hx Substance Use: No Preferred Language: [place] Communication Ability: Effective Visual Impairment: No Limitations Hearing Ability: Normal Autocad Electrical 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 Required: No Beliefs That Will Affect Care: None marital status: Single Current Living Situation: Alone current occupational status: employed 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 Physical Exam Physical Exam: General: Awake, alert, no acute distress HEENT: NC/AT, EOMI, mmm Neck: supple Lungs: diminished breath sounds Heart: nl S1/S2 Chest: some ttp over right chest wall Abdomen: soft, NT/ND Ext: no LE edema Skin: no rash Neuro: moving all extremities Results & Data Vital Signs (Past 12 Hours) Vital Signs Temp Pulse Pulse Resp BP Pulse Ox Pulse Ox 01/04/25 07:23 37.1 C 99 H 17 108/66 93 01/04/25 05:42 93 01/04/25 03:36 37.7 C H 102 H 18 124/70 93 01/04/25 02:40 100 H 01/03/25 23:02 37.4 C 96 H 18 108/69 94 O2 Del Method O2 Del Method O2 Flow Rate O2 Flow Rate 01/04/25 07:23 Nasal Cannula 2 01/04/25 05:42 Nasal Cannula 3 01/04/25 03:36 Nasal Cannula 2 01/04/25 02:40 01/03/25 23:02 Nasal Cannula 2 Laboratory Results Labs reviewed. Diagnostic Findings Imaging reviewed.
[2025-01-04] MEDS: EMPAGLIFLOZIN 10 MG TAB PO SCH (09:11)
--- NOTE | 2025-01-04 09:11 | Pharmacy Report ---
Pharmacy PK ABX Note - Date of Service January 04, 2025 - Assessment and Plan Assessment 54 year old M receiving vancomycin, unasyn, azithromycin for concerns for pneumonia. PMHx significant for renal cell carcinoma s/p nephrectomy, T2DM, cardiomyopathy, LV thrombus on eliquis. Patient presenting with chest pain the last few days and ongoing cough for about 3 weeks with increased shortness of breath. CXR suggestive of potential pneumonia. MRSA nasal swab ordered. Blood cultures and sputum pending. Plan Vancomycin * Loading dose: 2000 mg IV x 1 * Maintenance dose: 1000 mg IV every 12 hours * Regimen is predicted to achieve target AUC/COLEEN of 400-600 mg/L.hr * Will plan to collect level if continued >48 hours Pharmacy will continue to follow and will adjust dose/frequency as necessary. Thank you. Pharmacy has transitioned to AUC monitoring for vancomycin. AUC/COLEEN is the preferred PK/PD target and is associated with decreased risk of nephrotoxicity compared to traditional trough targets.
[2025-01-04] MEDS: VANCOMYCIN HCL 2,000 MG in SODIUM CHLORIDE 0.9% 500 ML IV ONE (09:13)
--- NOTE | 2025-01-04 11:55 | Hospitalist Progress Note ---
Date of Service January 04, 2025 Assessment & Plan (1) Rib pain: Plan: The patient appears to have a right sided pneumonia with pleurisy and hemoptysis. He is currently on intravenous Unasyn and oral azithromycin. Pulmonary medicine consultation appreciated. Infectious disease consultation report is pending. CT-C with pleural-based wedge-shaped opacity in right upper lobe and with small effusion. PE is not excluded. Since he only has 1 kidney, will avoid intravenous contrast material and ventilationperfusion scan has been ordered and pending. (2) History of renal cell carcinoma: Plan: Past history of right nephrectomy. No current intervention necessary (3) Ischemic cardiomyopathy: Plan: Known ejection fraction of approximately 35%. History of coronary artery disease and previous myocardial infarction. History of left ventricular thrombus in the past and continued Eliquis therapy. He is now on a heparin drip however which replaces Eliquis temporarily. Permanent pacemaker status. (4) Chronic kidney disease, stage 3a: Plan: History of right nephrectomy for renal cell carcinoma in the past. Will avoid intravenous contrast at this time. (5) Tobacco abuse: Plan: Smoking cessation counseling administered on admission (6) Diabetes type 2, controlled: Plan: ADA diet. Sliding scale coverage. Basal insulin therapy is listed on his home medication list but he states he does not take insulin at home and is refusing Lantus. Plan Anticipate eventual discharge to home when clinically improved Admission and Anticipated Discharge Date Admission Date: January 03, 2025 Subjective Alert and oriented. He is refusing all insulin products stating he does not take them at home. Appreciate pulmonary medicine consultation recommendations. Infectious disease consultation final report pending. Bilateral venous Dopplers of the legs negative for DVT on admission. He takes Eliquis chronically but underlying PE should be ruled out. Since he only has 1 kidney, a ventilation/perfusion scan will be done instead of a chest CTA to avoid intravenous contrast. Urine Legionella antigen pending along with sputum culture results and MRSA swab. He is currently on intravenous Unasyn and oral azithromycin. Review of Systems 2 Review of Systems: Constitutionalno fever or chills ENTno blurred vision, no double vision, no epistaxis, no sore throat Respiratorypersistent cough with hemoptysis. No shortness of breath at rest Cardiacno palpitations, no chest pain, no syncope Milli nausea, vomiting, diarrhea, melena, hematochezia GUno urinary retention, no urinary incontinence, no dysuria, no hematuria Musculoskeletalno joint pain, no muscle tenderness Skinno bruising, no rashes, no pruritus Neurono isolated weakness, no paresthesia, no weakness Psychno depression, no anxiety Physical Exam 2 Physical Exam: General-alert and oriented x3, no fever, no chills HEENT-head atraumatic and normocephalic, pupils equal and reactive to light, extraocular muscles intact Neck-no lymphadenopathy or thyromegaly, trachea midline Chest-scattered right-sided rhonchi. No wheezing. No audible pleuritic rub. i Cardiac-tachycardic regular rhythm, normal S1 and S2 Abdomen-normal bowel sounds, no hepatosplenomegaly Extremities-no cyanosis, clubbing, or edema Neuro-cranial nerves II through XII intact, motor and sensory function within normal limits, strength symmetrical, no focal deficits Psych-unpleasant affect Results & Data Results & Data Vital Signs (Past 12 Hours) Vital Signs Temp Pulse Pulse Resp BP BP Pulse Ox 01/04/25 10:36 37.3 C 102 H 20 129/79 92 01/04/25 07:23 37.1 C 99 H 17 108/66 93 01/04/25 07:20 01/04/25 05:42 01/04/25 03:36 37.7 C H 102 H 18 124/70 93 01/04/25 02:40 100 H Pulse Ox O2 Del Method O2 Del Method O2 Flow Rate O2 Flow Rate 01/04/25 10:36 Nasal Cannula 3 01/04/25 07:23 Nasal Cannula 2 01/04/25 07:20 Nasal Cannula 3 01/04/25 05:42 93 Nasal Cannula 3 01/04/25 03:36 Nasal Cannula 2 01/04/25 02:40 Laboratory Results 01/04/25 04:13 01/04/25 04:13 PG Care Time/CCT Total # of Minutes Spent Total Time Spent with Patient: Total time spent is greater than 50% in coordination of care (as documented) at patient's floor/unit and/or counseling patient: Coding Level of Care Code 46593 SUB INP/OBS CARE 3/50MIN Diagnoses Rib pain R07.81 History of renal cell carcinoma Z85.528 Ischemic cardiomyopathy I25.5 Chronic kidney disease, stage 3a N18.31 Tobacco abuse Z72.0 Diabetes type 2, controlled E11.9
[2025-01-04] MEDS: MoRPHine SULFATE 2 MG/ML CARP IV PRN (13:12)
--- NOTE | 2025-01-04 14:51 | Nuclear Medicine Report ---
NM pul perfusion CLINICAL HISTORY: possible PE COMPARISON STUDY: Chest CT January 03, 2025. Chest radiograph January 04, 2025. TECHNIQUE: A nuclear medicine perfusion study was performed. 5.2 mCi of technetium 99m MAA was inject ed IV at 2:10 PM on January 04, 2025. Following radiotracer injection, imaging of the chest was perf ormed in multiple projections. No ventilation imaging was performed given ventilation precautions. FINDINGS: A photopenic defect from the left subclavian pacer/AICD is noted. There is a moderate size perfusion defect within the right midlung. This corresponds to the opacity on chest radiograph of Feb ruary 2024. This has increased in extent since chest CT of 01/03/2025. No additional perfusion def ects are identified. Left lung perfusion is homogeneous. IMPRESSION: Moderate-sized perfusion defect within the right midlung which corresponds to the opacit y on chest radiograph performed earlier today. This study is considered intermediate probability for pulmonary embolus. Although pneumonia is favored, a pulmonary infarct could appear similar. A CT of the chest PE protocol could be considered if clinically indicated. ACT 112: Negative or not required by law. Electronically signed by: Killian Chase M.D. 01/04/2025 2:50 PM
[2025-01-04] MEDS ORDERED: cefTRIAXone SODIUM 2,000 MG/50 ML BAG IV SCH (15:00)
--- NOTE | 2025-01-04 18:08 | Pulmonology Progress Note ---
Date of Service January 04, 2025 Assessment & Plan (1) Community acquired pneumonia: (2) Pleural effusion, right: (3) Acute hypoxic respiratory failure: (4) Pleurisy: (5) Emphysema lung: (6) Hemoptysis: Plan I changed the patient's antibiotics from Rocephin to Unasyn for anaerobic coverage given his ongoing fever and worsening chest x-ray. Continue atypical coverage. MRSA screening was fortunately negative. Urine Legionella antigen is pending. ID consultation noted. VQ scan results noted as well. Uncertain that the the VQ scan adds anything to his care at this time in the context of acute pneumonia. Continue anticoagulation given his history of LV thrombus. Patient denies significant hemoptysis today. Thanks for the consult. Will continue to follow. Admission and Anticipated Discharge Date Admission Date: January 03, 2025 Subjective Patient is skeptical of the healthcare he is currently receiving and frustrated with what he perceives as poor communication between staff and with him. He was reassured that he is getting the appropriate medications and his diagnosis and treatment plan are ongoing. He complains of productive cough. He has ongoing pleurisy which is improved from yesterday. He has ongoing fevers. Denies any chills or night sweats at the present time. Review of Systems Review of Systems: All systems reviewed & are unremarkable except as noted in HPI & below Physical Exam Physical Exam: Constitutional: Patient appears to be of their stated age. Patient is in no apparent distress. Patient is well-developed. Nasal cannula in place. Eyes: Pupils are equal round and reactive to light. Conjunctivae are normal. Anicteric sclera. Ears nose, mouth and throat: Mallampati class 2. Normal posterior oropharynx. Uvula is midline. Neck: Trachea is midline. Visual inspection is normal. Respiratory: Diminished lung sounds. Mild crackles in the right lower lobe. No wheezes. Cardiovascular: Regular rate and rhythm. No murmurs. No edema. Gastrointestinal: Normal bowel sounds, soft, nontender and nondistended. No hepatosplenomegaly noted. Musculoskeletal: No cyanosis. Patient is able to move all extremities. Strength is 5 out of 5 in the upper and lower extremities. Skin: No rashes, warm dry and intact. Neurologic: No obvious focal neurological deficits seen. Psychiatric: Alert and oriented x3 with a euthymic affect. Results & Data Results & Data Vital Signs (Past 12 Hours) Vital Signs Temp Pulse Pulse Resp BP BP Pulse Ox 01/04/25 15:21 37.6 C H 95 H 16 105/70 96 01/04/25 14:22 96 H 01/04/25 10:36 37.3 C 102 H 20 129/79 92 01/04/25 10:00 99 H 01/04/25 07:23 37.1 C 99 H 17 108/66 93 01/04/25 07:20 O2 Del Method O2 Flow Rate 01/04/25 15:21 Nasal Cannula 2 01/04/25 14:22 01/04/25 10:36 Nasal Cannula 3 01/04/25 10:00 01/04/25 07:23 Nasal Cannula 2 01/04/25 07:20 Nasal Cannula 3 PG Care Time/CCT Total # of Minutes Spent Total Time Spent with Patient: Total time spent is greater than 50% in coordination of care (as documented) at patient's floor/unit and/or counseling patient: Coding Level of Care Code 65494 SUB INP/OBS CARE 2/35MIN Diagnoses Community acquired pneumonia J18.9 Pleural effusion, right J90 Acute hypoxic respiratory failure J96.01 Pleurisy R09.1 Emphysema lung J43.9 Hemoptysis R04.2
[2025-01-04] MEDS ORDERED: NYSTATIN POWDER 15GM BTL EXT PRN (19:58)
[2025-01-04] MEDS ORDERED: VANCOMYCIN HCL 1,000 MG/270 ML BAG IV SCH (20:00)
[2025-01-04] MEDS: LANTUS PER UNIT CHARGE SQ SCH (20:48)
[2025-01-05 06:58] LABS: Basophils # (auto) 0.02 K/uL (0.00-0.20); Basophils % (auto) 0.2 %; Eosinophils # (auto) 0.19 K/uL (0.00-0.50); Eosinophils % (auto) 2.1 %; Hematocrit (blood only) 40.1 % (42.0-52.0); Hemoglobin 13.6 g/dl (14.0-18.0); Immature Granulocytes # (auto) 0.05 K/uL (0.01-0.20); Immature Granulocytes % (auto) 0.6 %; Lymphocytes # (auto) 1.54 K/uL (1.20-3.40); Lymphocytes % (auto) 17.1 %; Mean Corpuscular Hemoglobin 32.2 pg (25.0-34.0); Mean Corpuscular Hgb Conc 33.9 g/dL (32.0-36.0); Mean Corpuscular Volume 94.8 fL (80.0-100.0); Mean Platelet Volume 9.4 fL (9.4-12.4); Monocytes # (auto) 1.17 K/uL (0.11-0.59); Neutrophils # (auto) 6.01 K/uL (1.40-6.50); Platelet Count 177 K/uL (130-400); RDW Coefficient of Variation 12.9 % (11.5-14.5); RDW Standard Deviation 44.5 fL (36.4-46.3); Red Blood Count 4.23 M/uL (4.70-6.10); White Blood Count 8.98 K/ul (4.8-10.8)
[2025-01-05 07:20] LABS: Calcium 8.2 mg/dl (8.6-10.3); Creatinine Clr Calc Pharmacy 85.9 ml/min; Potassium 4.1 mmol/L (3.5-5.1)
--- NOTE | 2025-01-05 07:20 | XRay Report ---
EXAM: XR chest 1V portable CLINICAL HISTORY: Right pneumonia. TECHNIQUE: An X-ray image of the chest is obtained in AP projection. COMPARISON: CR dated 01/03/2025. FINDINGS: Pulmonary Parenchyma: There is a patch of consolidation seen in the right lower zone. A few patchy opacities are also seen in the right lower zone. Minimal blunting of both costophrenic angles is seen as likely due to pleural thickening/minimal pleural effusion. Heart and Mediastinum: Heart size and shape are normal. No mediastinal widening or masses. No hilar or mediastinal lymphadenopathy. A cardiac pacemaker device was seen. Bony Thorax: The bony thorax appears intact without fractures or deformities. Soft Tissues: Soft tissues overlying the chest wall are unremarkable. IMPRESSION: 1. Imaging findings are likely due to pulmonary infection/pneumonia, would recommend clinical lab correlation and follow-up chest x-ray. 2. Interval worsening. Electronically signed by Ivan Singh 01-05-2025 07:19 AM
[2025-01-05 07:22] LABS: ANTI-Xa, UFH(UnfractionatedHep 0.24 IU/ml (0.3-0.7); Partial Thromboplastin Ratio 1.5; Partial Thromboplastin Time 41 Seconds (21-31)
[2025-01-05] MEDS ORDERED: VANCOMYCIN HCL 1,500 MG in SODIUM CHLORIDE 0.9% 500 ML IV SCH (09:00)
[2025-01-05] MEDS: APIXABAN 5 MG TABLET PO SCH (10:15)
--- NOTE | 2025-01-05 12:06 | Hospitalist Progress Note ---
Date of Service January 05, 2025 Assessment & Plan (1) Rib pain: Plan: The patient states his hemoptysis has resolved. Pleuritic type chest pain with inspiration has also markedly improved. Currently on intravenous Unasyn and oral azithromycin. Pulmonary medicine and infectious disease consultations appreciated. (2) Acute respiratory failure with hypoxia: Plan: Supplemental oxygen per nasal cannula to maintain saturation greater than 90%. Wean off as tolerated. Continue to treat underlying right-sided pneumonia (3) History of renal cell carcinoma: Plan: Past history of right nephrectomy. No current intervention necessary (4) Ischemic cardiomyopathy: Plan: Known ejection fraction of approximately 35%. History of coronary artery disease and previous myocardial infarction. History of left ventricular thrombus in the past and continued Eliquis therapy. He was started on a heparin drip on admission and this has been switched back to Eliquis today, January 05. Permanent pacemaker status. (5) Chronic kidney disease, stage 3a: Plan: History of right nephrectomy for renal cell carcinoma in the past. Will avoid intravenous contrast at this time. (6) Tobacco abuse: Plan: Smoking cessation counseling administered on admission (7) Diabetes type 2, controlled: Plan: ADA diet. Sliding scale coverage. Basal insulin therapy Plan Hopeful discharge to home on oral antibiotic tomorrow, January 06 Admission and Anticipated Discharge Date Admission Date: January 03, 2025 Subjective Alert and oriented. He states he is feeling better. He is only requiring 1 L of oxygen at this time. Hopefully this can be weaned off before discharge. Ventilation/perfusion scan is intermediate but his current situation appears to be infectious. Heparin drip switched back to his usual Eliquis. Will obtain chest x-ray PA and left lateral tomorrow, January 06. Blood cultures are negative. Sputum culture reveals only normal yves. Appreciate pulmonary medicine and infectious disease consultation and recommendations. MRSA swab is negative Review of Systems 2 Review of Systems: Constitutionalno fever or chills ENTno blurred vision, no double vision, no epistaxis, no sore throat Respiratorypersistent cough with hemoptysis. No shortness of breath at rest Cardiacno palpitations, no chest pain, no syncope Milli nausea, vomiting, diarrhea, melena, hematochezia GUno urinary retention, no urinary incontinence, no dysuria, no hematuria Musculoskeletalno joint pain, no muscle tenderness Skinno bruising, no rashes, no pruritus Neurono isolated weakness, no paresthesia, no weakness Psychno depression, no anxiety Physical Exam 2 Physical Exam: General-alert and oriented x3, no fever, no chills HEENT-head atraumatic and normocephalic, pupils equal and reactive to light, extraocular muscles intact Neck-no lymphadenopathy or thyromegaly, trachea midline Chest-scattered right-sided rhonchi. No wheezing. No audible pleuritic rub. i Cardiac-tachycardic regular rhythm, normal S1 and S2 Abdomen-normal bowel sounds, no hepatosplenomegaly Extremities-no cyanosis, clubbing, or edema Neuro-cranial nerves II through XII intact, motor and sensory function within normal limits, strength symmetrical, no focal deficits Psych-unpleasant affect Results & Data Results & Data Vital Signs (Past 12 Hours) Vital Signs Temp Pulse Pulse Resp BP Pulse Ox Pulse Ox 01/05/25 09:40 86 01/05/25 09:36 92 01/05/25 08:23 36.6 C 100 H 18 117/76 93 01/05/25 07:52 01/05/25 03:03 37.3 C 91 H 18 104/64 64 L 01/05/25 02:26 92 H 01/05/25 02:20 O2 Del Method O2 Del Method O2 Flow Rate O2 Flow Rate 01/05/25 09:40 01/05/25 09:36 Nasal Cannula 1 01/05/25 08:23 Nasal Cannula 1 01/05/25 07:52 Nasal Cannula 3 01/05/25 03:03 Nasal Cannula 2 01/05/25 02:26 01/05/25 02:20 Nasal Cannula 3 Laboratory Results 01/05/25 06:23 01/05/25 06:23 PG Care Time/CCT Total # of Minutes Spent Total Time Spent with Patient: Total time spent is greater than 50% in coordination of care (as documented) at patient's floor/unit and/or counseling patient: Coding Level of Care Code 17186 SUB INP/OBS CARE 3/50MIN Diagnoses Rib pain R07.81 Acute respiratory failure with hypoxia J96.01 History of renal cell carcinoma Z85.528 Ischemic cardiomyopathy I25.5 Chronic kidney disease, stage 3a N18.31 Tobacco abuse Z72.0 Diabetes type 2, controlled E11.9
--- NOTE | 2025-01-05 12:29 | Pulmonology Progress Note ---
Date of Service January 05, 2025 Assessment & Plan (1) Community acquired pneumonia: (2) Pleural effusion, right: (3) Acute hypoxic respiratory failure: (4) Pleurisy: (5) Emphysema lung: (6) Hemoptysis: Plan Continue Unasyn for anaerobic coverage given his ongoing fever and worsening chest x-ray. Sputum cultures unfortunately unrevealing. Continue atypical coverage. MRSA screening was fortunately negative. Urine Legionella antigen is pending. ID consultation noted. VQ scan results noted as well. Uncertain that the the VQ scan adds anything to his care at this time in the context of acute pneumonia. Continue anticoagulation given his history of LV thrombus. Patient denies significant hemoptysis today. Recommend repeat CT chest in about 4 to 6 weeks as an outpatient without contrast to ensure resolution or improvement in the right-sided infiltrates. Patient is is an active smoker and postobstructive pneumonia with underlying malignancy always remains a possibility and thus imaging until resolution is crucial. Thanks for the consult. Will continue to follow. Admission and Anticipated Discharge Date Admission Date: January 03, 2025 Subjective Patient feels that his pleurisy is improving and hemoptysis has resolved. Still remains on supplemental oxygen. Denies any night sweats or chills. No fevers today. He did have some low-grade fevers early yesterday evening. Review of Systems Review of Systems: All systems reviewed & are unremarkable except as noted in HPI & below Physical Exam Physical Exam: Constitutional: Patient appears to be of their stated age. Patient is in no apparent distress. Patient is well-developed. Nasal cannula in place. Eyes: Pupils are equal round and reactive to light. Conjunctivae are normal. Anicteric sclera. Ears nose, mouth and throat: Mallampati class 2. Normal posterior oropharynx. Uvula is midline. Neck: Trachea is midline. Visual inspection is normal. Respiratory: Diminished lung sounds. Mild crackles in the right lower lobe. No wheezes. Cardiovascular: Regular rate and rhythm. No murmurs. No edema. Gastrointestinal: Normal bowel sounds, soft, nontender and nondistended. No hepatosplenomegaly noted. Musculoskeletal: No cyanosis. Patient is able to move all extremities. Strength is 5 out of 5 in the upper and lower extremities. Skin: No rashes, warm dry and intact. Neurologic: No obvious focal neurological deficits seen. Psychiatric: Alert and oriented x3 with a euthymic affect. Results & Data Results & Data Vital Signs (Past 12 Hours) Vital Signs Temp Pulse Pulse Resp BP Pulse Ox Pulse Ox 01/05/25 09:40 86 01/05/25 09:36 92 01/05/25 08:23 36.6 C 100 H 18 117/76 93 01/05/25 07:52 01/05/25 03:03 37.3 C 91 H 18 104/64 64 L 01/05/25 02:26 92 H 01/05/25 02:20 O2 Del Method O2 Del Method O2 Flow Rate O2 Flow Rate 01/05/25 09:40 01/05/25 09:36 Nasal Cannula 1 01/05/25 08:23 Nasal Cannula 1 01/05/25 07:52 Nasal Cannula 3 01/05/25 03:03 Nasal Cannula 2 01/05/25 02:26 01/05/25 02:20 Nasal Cannula 3 PG Care Time/CCT Total # of Minutes Spent Total Time Spent with Patient: Total time spent is greater than 50% in coordination of care (as documented) at patient's floor/unit and/or counseling patient: Coding Level of Care Code 09321 SUB INP/OBS CARE 2/35MIN Diagnoses Community acquired pneumonia J18.9 Pleural effusion, right J90 Acute hypoxic respiratory failure J96.01 Pleurisy R09.1 Emphysema lung J43.9 Hemoptysis R04.2
--- NOTE | 2025-01-05 12:45 | Infectious Disease Progress Nt ---
Date of Service January 05, 2025 Assessment & Plan (1) Community acquired pneumonia: (2) Pleural effusion, right: (3) Hemoptysis: (4) H/O kidney removal: (5) Diabetes type 2, controlled: Plan 54yo M with h/o RCC s/p right nephrectomy (no residual disease, not on chemo), IDDM, ischemic CM, HTN, HLD, LV apical thrombus on eliquis who presented on 01/03 with pleuritic chest pain on the right x 4 days along with hemoptysis. He had a cold 2-3 weeks ago and has had a residual cough since then. On admission, he was afebrile, tachycardic, on RA. Initial labs with WBC 10.54, Cr 1.42, LFT wnl. CRP 17.98. PCT 0.16. RPP negative. CXR with pulmonary vascular congestion with possi ble mild pulmonary edema, trace bl pleural effusions; 5.5 cm right midlung opacity. CT chest w/o contrast showed pleural-based, wedge-shaped opacity in the right upper lobe associated with a small effusion. LE doppler neg for DVT bl. He was started on CTX/azithro. Seen by pulmonary. CXR on 01/04 with progression of right midlung airspace opacity suggestive of PNA. Abx have been changed to vanc/Unasyn and azithro. ID consulted 01/04. No significant TB exposures, no night sweats, weight loss. VQ scan with moderate-sized perfusion defect within the right midlung which corresponds to the opacity on chest radiograph, intermediate probability for PE. MRSA negative, sputum cx with normal yves. O2 requirement is down to 1L today, remains afebrile and WBC is wnl. CXR from today noted. Will keep on current regimen. # Right sided PNA # Recent upper respiratory infection 2-3 weeks ago # Diabetes # h/o right nephrectomy - f/u urine legionella Ag - continue on azithromycin stop if legionella is negative - continue Unasyn 3g IV q6h - if remainder of workup is negative and hes improving, could transition to augmetin to complete a course of 7 days ID will continue to follow. If questions or concerns, contact via [employer] or Infectious Disease Call Center . Tanvi Cordero MD [facility], Division of Infectious Diseases [employer]: [phone] Admission and Anticipated Discharge Date Admission Date: January 03, 2025 Subjective This patient recommendation is based on a telemedicine consult request which was completed asynchronously through chart review and information provided by the primary physician. The patient was not seen or examined today. The evaluation is consultative in nature and all patient care and treatment decisions can either be accepted or rejected by the patient's primary hospital-based treating physician using their own independent medical judgment for their patient. Time Spent Reviewing Chart: 31+ minutes He is afebrile, WBC wnl. O2 now 1L NC. Results & Data Vital Signs (Past 12 Hours) Vital Signs Temp Pulse Pulse Resp BP Pulse Ox Pulse Ox 01/05/25 09:40 86 01/05/25 09:36 92 01/05/25 08:23 36.6 C 100 H 18 117/76 93 01/05/25 07:52 01/05/25 03:03 37.3 C 91 H 18 104/64 64 L 01/05/25 02:26 92 H 01/05/25 02:20 O2 Del Method O2 Del Method O2 Flow Rate O2 Flow Rate 01/05/25 09:40 01/05/25 09:36 Nasal Cannula 1 01/05/25 08:23 Nasal Cannula 1 01/05/25 07:52 Nasal Cannula 3 01/05/25 03:03 Nasal Cannula 2 01/05/25 02:26 01/05/25 02:20 Nasal Cannula 3
[2025-01-05] MEDS: ALBUT/IPRATROP 3MG/0.5MG NEB 3 ML VIAL NEB SCH (13:27)
[2025-01-05] MEDS: SODIUM CHLOR 7% 4 ML NEB NEB SCH (20:14)
[2025-01-05] MEDS: guaiFENesin 600 MG TABCR PO SCH (22:51)
[2025-01-06 06:29] LABS: Basophils # (auto) 0.02 K/uL (0.00-0.20); Basophils % (auto) 0.3 %; Eosinophils # (auto) 0.29 K/uL (0.00-0.50); Eosinophils % (auto) 3.8 %; Hematocrit (blood only) 39.2 % (42.0-52.0); Hemoglobin 13.4 g/dl (14.0-18.0); Immature Granulocytes # (auto) 0.03 K/uL (0.01-0.20); Immature Granulocytes % (auto) 0.4 %; Lymphocytes % (auto) 17.1 %; Mean Corpuscular Hemoglobin 32.6 pg (25.0-34.0); Mean Corpuscular Hgb Conc 34.2 g/dL (32.0-36.0); Mean Corpuscular Volume 95.4 fL (80.0-100.0); Mean Platelet Volume 9.4 fL (9.4-12.4); Monocytes % (auto) 13.1 %; Neutrophils # (auto) 4.97 K/uL (1.40-6.50); Neutrophils % (auto) 65.3 %; Platelet Count 215 K/uL (130-400); RDW Coefficient of Variation 12.6 % (11.5-14.5); RDW Standard Deviation 44.7 fL (36.4-46.3); Red Blood Count 4.11 M/uL (4.70-6.10); White Blood Count 7.61 K/ul (4.8-10.8)
[2025-01-06 06:34] LABS: BUN Creatinine Ratio 15.1 (10-20); Calcium 8.2 mg/dl (8.6-10.3); Creatinine Clr Calc Pharmacy 89.9 ml/min
--- NOTE | 2025-01-06 09:00 | Infectious Disease Progress Nt ---
Date of Service January 06, 2025 Assessment & Plan (1) Community acquired pneumonia: (2) Pleural effusion, right: (3) Hemoptysis: (4) H/O kidney removal: (5) Diabetes type 2, controlled: Plan 54yo M with h/o RCC s/p right nephrectomy (no residual disease, not on chemo), IDDM, ischemic CM, HTN, HLD, LV apical thrombus on eliquis who presented on 01/03 with pleuritic chest pain on the right x 4 days along with hemoptysis. He had a cold 2-3 weeks ago and has had a residual cough since then. On admission, he was afebrile, tachycardic, on RA. Initial labs with WBC 10.54, Cr 1.42, LFT wnl. CRP 17.98. PCT 0.16. RPP negative. CXR with pulmonary vascular congestion with possi ble mild pulmonary edema, trace bl pleural effusions; 5.5 cm right midlung opacity. CT chest w/o contrast showed pleural-based, wedge-shaped opacity in the right upper lobe associated with a small effusion. LE doppler neg for DVT bl. He was started on CTX/azithro. Seen by pulmonary. CXR on 01/04 with progression of right midlung airspace opacity suggestive of PNA. Abx have been changed to vanc/Unasyn and azithro. ID consulted 01/04. No significant TB exposures, no night sweats, weight loss. VQ scan with moderate-sized perfusion defect within the right midlung which corresponds to the opacity on chest radiograph, intermediate probability for PE. MRSA negative, sputum cx with normal yves. Overnight on 01/05 he was hypoxic to 64 and placed on 3L NC. CXR 01/05 with consolidation in right lower zone, interval worsening. Symptomatically improving. U legionella negative. Remains afebrile and WBC is wnl. He was on NC when I saw him but documentation now notes room air. # Right sided PNA # Recent upper respiratory infection 2-3 weeks ago # Diabetes # h/o right nephrectomy - Ale stopped azithromycin given negative legionella - continue Unasyn 3g IV q6h - when hes ready for discharge, abx can be changed to Augmentin 875mg PO bid to complete a course of 7 days (start 01/03) - if c/f slow improvement, can extend to 10 days Will discontinue active follow up at this time. Please do not hesitate to reconsult the Infectious Diseases service as needed. Tanvi Cordero MD [facility], Division of Infectious Diseases [employer]: [phone] Admission and Anticipated Discharge Date Admission Date: January 03, 2025 Subjective Subsequent visit was provided via telemedicine using two-way real-time interactive telecommunication between the patient and the telemedicine provider. For the duration of the visit, the provider was performing the assessment from a different facility than the patient. This includesuse of bluetooth stethoscope forauscultationperformed by the telepresenter that the telemedicine provider can hear if described in the physical exam. Student Success Advisor contact information: Please call [employer] [facility] Call Center [phone]. (Phone Number For Physician Use Only) After establishing a telemedicine visit, patient was: Patient was verified with two unique identifiers, Patient/authorized rep acknowledged consent and understanding and Gave permission to continue telehealth session Time Spent with Patient: Subsequent => 35 min Patient reports feeling well. His chest pain and cough have improved. He says that his O2 is 90s when he's ambulating but drops when he lays down. No other complaints. Physical Exam Physical Exam: General: Awake, alert, no acute distress HEENT: NC/AT, EOMI, mmm Neck: supple Lungs: clear Heart: nl S1/S2 Results & Data Vital Signs (Past 12 Hours) Vital Signs Temp Pulse Pulse Pulse Resp BP Pulse Ox 01/06/25 07:16 36.7 C 99 H 17 108/64 90 01/06/25 07:14 100 H 18 91 01/06/25 03:44 37.0 C 80 18 113/66 94 01/06/25 00:28 89 01/05/25 23:05 37 C 83 18 105/68 92 O2 Del Method O2 Flow Rate 01/06/25 07:16 Room Air 01/06/25 07:14 Room Air 01/06/25 03:44 Nasal Cannula 3 01/06/25 00:28 01/05/25 23:05 Nasal Cannula 1 Laboratory Results Labs reviewed. Diagnostic Findings Imaging reviewed.
--- NOTE | 2025-01-06 09:15 | XRay Report ---
XR chest 2V PA/lateral CLINICAL HISTORY: right PNA COMPARISON STUDY: Chest CT January 03, 2025. Chest radiograph January 05, 2025. FINDINGS: There is no pneumothorax. A left subclavian pacer/AICD is in place. Stable cardiomegaly. Th ere is pulmonary vascular congestion, similar to prior exam. Small right pleural effusion is unchange d. Right midlung airspace opacity has mildly improved. There is no consolidation within the left lung . IMPRESSION: 1. Mild improvement in right midlung airspace opacity suggestive of pneumonia. 2. No change in a small right pleural effusion. 3. Cardiomegaly with pulmonary vascular congestion, unchanged. ACT 112: Negative or not required by law. Electronically signed by: Killian Chase M.D. 01/06/2025 9:13 AM
[2025-01-06 10:37] VITALS: RESP 20; TEMP 98.4; O2SAT 93
[2025-01-06] MEDS: FUROSEMIDE 40 MG/4 ML VIAL IV ONE (11:08)
--- NOTE | 2025-01-06 11:54 | Discharge Summary ---
Discharge Summary Date of Service January 06, 2025 Principal Dx & Hospital Course #1 = Principal Diagnosis (1) Rib pain: The patient states his hemoptysis has resolved. Pleuritic type chest pain with inspiration has also markedly improved. Treated while hospitalized with intravenous Unasyn and oral azithromycin. Pulmonary medicine and infectious disease consultations appreciated. Will discharge on Augmentin for 10 more days (2) Acute respiratory failure with hypoxia: Resolved. Oxygen saturation is now 90% on room air. Continue to treat underlying right-sided pneumonia (3) History of renal cell carcinoma: Past history of right nephrectomy. No current intervention necessary (4) Ischemic cardiomyopathy: Known ejection fraction of approximately 35%. History of coronary artery disease and previous myocardial infarction. History of left ventricular thrombus in the past and continued Eliquis therapy. He was started on a heparin drip on admission and this has been switched back to Eliquis on January 05. Permanent pacemaker status. (5) Chronic kidney disease, stage 3a: History of right nephrectomy for renal cell carcinoma in the past. Will avoid intravenous contrast at this time. (6) Tobacco abuse: Smoking cessation counseling administered on admission (7) Diabetes type 2, controlled: ADA diet. Sliding scale coverage. Basal insulin therapy Plan Home today, January 06, on Augmentin for 10 more days. Follow-up with PCP as s oon as possible for scheduling a follow-up chest x-ray to ensure complete resolution of pneumonia. Admission HPI Per Admitting Provider Abel is a 54-year-old male past medical history of right nephrectomy 2017 and subsequent CKD 3, type II DM, hypertension, triple-vessel CAD and ischemic cardiomyopathy with ICD last echo EF 35-40%, anticoagulation with Eliquis who presented to the emergency department with 3 weeks of cough slowly improving but with some chest discomfort on his right chest over the last 4 days. Patient has had increased pain on deep inspiration and with coughing, does have some worsened pain with movement. He endorses dyspnea. He is anticoagulated on Eliquis with which he is compliant Has a history of HFrEF with ICD/pacemaker On ER assessment O2 sat is greater than 90% on room air, mild tachycardia. Chest x-ray shows pulmonary vascular congestion with mild pulmonary edema and trace effusions, 5.5 cm right midlung opacity was noted. Follow-up CTchest noncontrast showed pleural-based wedge-shaped opacity in right upper lobe associated with a small effusion. Wedge infarct from a pu lmonary embolism is not excluded and follow-up CTPE was recommended. Patient is anticoagulated at baseline with Eliquis, and has a solitary kidney with CKD and current creatinine is 1.42, within baseline of around 1.21.5 on admission. BioFire negative ____ Abel reports that he has a history of RCC s/p nephrectomy without residual disease or ongoing chemotherapy. He reports that he presented to the ER after he felt a pop or tearing motion at his right anterior ribs and since then has had slowly progressive pain at that area. Endorses pain on deep breathing and some cough. Some chill over the weekend, no fevers. He reports he is short of breath but is not sure if this is because he is breathing shallow due to pain or if he would be short of breath if he could take a full breath or not. No sputum change. No diarrhea, constipation, other myalgias. Denies chest pain other than his rib pain. No recent steroid use. Does have a history of heart failure, denies recent orthopnea, leg swelling and exacerbation although has gotten Lasix intermittently in the past does not take this regularly at home and has not needed this recently. Medical History: Reviewed Medications: Reviewed Surgical History: Reviewed Family history: Reviewed Allergies: Reviewed Social History: Reviewed Code Status:Full Code Discharge Exam General-alert and oriented x3, no fever, no chills HEENT-head atraumatic and normocephalic, pupils equal and reactive to light, extraocular muscles intact Neck-no lymphadenopathy or thyromegaly, trachea midline Chest-scattered right-sided rhonchi. No wheezing. No audible pleuritic rub. i Cardiac-tachycardic regular rhythm, normal S1 and S2 Abdomen-normal bowel sounds, no hepatosplenomegaly Extremities-no cyanosis, clubbing, or edema Neuro-cranial nerves II through XII intact, motor and sensory function within normal limits, strength symmetrical, no focal deficits Psych-unpleasant affect Discharge Plan Discharge Items Patient Disposition: Home - Self-Care Reason For Visit: RIB PAIN, DYSPNEA, ?PNA WITH EFFUSION Discharge Diagnosis: Community-acquired pneumonia, acute hypoxic respiratory failure, pleurisy Condition on Discharge: Good Activity: Resume your previous activity Non-emergency contact: Primary Care Provider Call non-emergency contact if: your symptoms worsen Follow-up/Referrals: Kristin Nelson CRNP [Primary Care Provider] - Diet: Carb Consistent or DM2 and Heart Healthy Addtl Attending Provider Instructions: Take Augmentin (amoxicillin/clavulanate) twice daily for 1 more week. Follow-up with primary care provider for as soon as possible for follow-up and scheduling of repeat chest x-ray in several weeks to document complete resolution of pneumonia Pending Studies at Discharge: No Stand-Alone Forms: My [facility], Work/School Release, Smoking Cessation Medications and DC Order Prescriptions: New amoxicillin-pot clavulanate 875-125 mg tablet 1 tab PO BID Qty: 20 0RF Continued (DME) pen needle, diabetic [BD Ultra-Fine Mini Pen Needle] 31 gauge x 3/16" needle See Dose Instructions .ROUTE .MEDSUPPLY Qty: 200 3RF Dose Instruction: As directed Rx Instructions: for use 2 times daily rosuvastatin 40 mg tablet 40 mg PO DAILY Qty: 30 2RF Rx Instructions: last filled 10/30 90 day supply (DME) Dexcom G7 Sensor Device See Rx Instructions .Route Qty: 3 11RF Rx Instructions: Change sensor every 10 days dulaglutide 1.5 mg/0.5 mL pen injector 1.5 mg subcut Q7D Qty: 2 3RF Rx Instructions: filled 12/12 28 day supply cholecalciferol (vitamin D3) 1,250 mcg (50,000 unit) capsule 50,000 unit PO Q7D Qty: 8 0RF Rx Instructions: filled 11/29 56 day supply (DME) OneTouch Verio test strips Strip See Rx Instructions .ROUTE .MEDSUPPLY Qty: 10 Rx Instructions: Test blood sugar two times daily Eliquis 5 mg tablet 5 mg PO UD Rx Instructions: 5 mg po bid. last filled 11/12 30 day supply spironolactone 25 mg tablet 25 mg PO DAILY Rx Instructions: filled 12/06 90 day supply metoprolol succinate 50 mg tablet extended release 24 hr 50 mg PO DAILY Rx Instructions: filled 12/06 90 day supply Jardiance 10 mg tablet 10 mg PO DAILY Rx Instructions: filled 12/06 90 day supply aspirin [Adult Low Dose Aspirin] 81 mg tablet,delayed release (DR/EC) 81 mg PO DAILY Rx Instructions: last filled 12/13 90 day acetaminophen 325 mg Tablet 650 mg PO Q4H PRN (Reason: fever or pain) Qty: 7 0RF Rx Instructions: otc unable to verify nitroglycerin [Nitrostat] 0.4 mg Tablet, Sublingual 0.4 mg sublingual UD PRN (Reason: chest pain) Qty: 7 0RF Rx Instructions: no fill history available sacubitril-valsartan [Entresto] 24-26 mg Tablet 1 tab PO BID Qty: 7 0RF Rx Instructions: filled 12/03 30 day supply insulin glargine-yfgn [Semglee(insulin glarg-yfgn)Pen] 100 unit/mL (3 mL) insulin pen 20 unit subcut UD Rx Instructions: 20 mg subcut bid. last filled 09/13 38 day supply Discharge Orders: Discharge Order (Routine); Ordered 01/06/25 Ordered By: Abhijeet Salcedo Admission Data Admit Date/Time: 01/03/25 15:36 Attending Provider: Abhijeet Salcedo Admit Provider: Kyle Cope Primary Care Provider: Kristin Nelson Other Providers: Kyle Cope; Chata Leach; Gail Crocker; Tanvi Cordero; Nelly Khan; Zulay Villanueva; Lucita Romero; Cl Canales Hospital Stay Data Consultations 01/03/25 14:21 ED Decision to Admit Stat 01/03/25 15:49 Consult Infectious Diseases Routine 01/03/25 15:51 Consult Pulmonology Stat Diagnostic Imagining Performed 01/03/25 13:20 CT chest diagnostic wo con Stat 01/03/25 14:41 US venous doppler LE BI Stat Pending Results Patient Have Any Pending Studies at Discharge: No Discharge Instructions Given to Patient (Per Discharging Provider) Take Augmentin (amoxicillin/clavulanate) twice daily for 1 more week. Follow-up with primary care provider for as soon as possible for follow-up and scheduling of repeat chest x-ray in several weeks to document complete resolution of pneumonia Total Time Total Time Spent Total Time Spent (In Minutes): 50 minutes Coding Level of Care Code 47845 INP/OBS DISCH >30 MIN Diagnoses Rib pain R07.81 Acute respiratory failure with hypoxia J96.01 History of renal cell carcinoma Z85.528 Ischemic cardiomyopathy I25.5 Chronic kidney disease, stage 3a N18.31 Tobacco abuse Z72.0 Diabetes type 2, controlled E11.9
[2025-01-06 12:52] VITALS: BP 108/66; PULSE 80
== END 2025-01-06 14:10 | disposition home or self-care (01) | DRG 193 ==
LOC: ED 11:32 → EDINP 15:36 → SUATTDRO 15:36 → 2S 17:05